=== PATIENT | male | born 1975 | race American Indian/Alaskan Native ===

== ENCOUNTER 2018-10-09 09:16 | Emergency (ER) | payer SELFPAY ==
[2018-10-09 10:02] LABS: Basophils # (Auto) 0.1 K/mm3 (0.0-0.1); Eosinophils # (Auto) 1.1 K/mm3 (0.0-0.4); Eosinophils % (Auto) 9.7 % (0.0-4.3); Hematocrit 35.7 % (35.5-45.6); Hemoglobin 12.1 gm/dl (11.8-15.2); Lymphocytes # (Auto) 1.4 K/mm3 (1.2-5.4); Lymphocytes % (Auto) 11.9 % (13.4-35.0); Mean Corpuscular HGB Conc 34 % (32-34); Mean Corpuscular Volume 92 fl (84-94); Monocytes # (Auto) 0.8 K/mm3 (0.0-0.8); Monocytes % (Auto) 7.1 % (0.0-7.3); Platelet Count 302 K/mm3 (140-440); Red Blood Count 3.88 M/mm3 (3.65-5.03); Red Cell Distribution Width 16.3 % (13.2-15.2)
[2018-10-09 10:18] LABS: Calcium 8.3 mg/dL (8.4-10.2)
--- NOTE | 2018-10-09 11:36 | Emergency Department Report ---
ED General Adult HPI - General Chief complaint: Abdominal Pain Stated complaint: SWOLLEN LEGS, FEET, STOMACH Time Seen by Provider: 10/09/18 11:10 Source: patient Mode of arrival: Ambulatory Limitations: No Limitations - History of Present Illness Initial comments: 43-year-old male with history of hypertension and asthma presents to ED with swelling to bilateral lower extremities 2 weeks. Patient says he was seen previously by his PCP for respiratory infection, states a chest x-ray was done and he was told he had a small amount of fluid on his lungs. Patient states he was prescribed a water pill and steroids. Denies abdominal pain or lower extr emity pain. -: week(s) (2) Location: abdomen, left, right, lower extremity Severity scale (0 -10): 0 Consistency: constant Improves with: none Worsens with: none Associated Symptoms: shortness of breath. denies: chest pain - Related Data Home Medications Medication Instructions Recorded Confirmed Last Taken Albuterol Sulfate [Albuterol 1 - 2 puff IH Q6H PRN 10/09/18 10/09/18 Unknown Sulfate Hfa] Furosemide [Lasix] 20 mg PO QDAY 10/09/18 10/09/18 Unknown Hydralazine HCl 50 mg PO Q12H 10/09/18 10/09/18 10/08/18 Isosorbide Dinitrate [Isordil 10 mg PO TID 10/09/18 10/09/18 Unknown Titradose] Previous Rx's Medication Instructions Recorded Last Taken Type Ciprofloxacin HCl [Ciprofloxacin 500 mg PO Q12HR #14 tab 10/09/18 Unknown Rx TAB] Furosemide [Lasix] 20 mg PO QDAY #30 tablet 10/09/18 Unknown Rx Metoprolol [Lopressor TAB] 25 mg PO BID #60 tablet 10/09/18 Unknown Rx Simvastatin 20 mg PO DAILY #30 tablet 10/09/18 Unknown Rx hydroCHLOROthiazide [Hctz] 12.5 mg PO QDAY #30 capsule 10/09/18 Unknown Rx Allergies Allergy/AdvReac Type Severity Reaction Status Date / Time lisinopril Allergy Hives Verified 10/09/18 09:19 ED Review of Systems ROS: Stated complaint: SWOLLEN LEGS, FEET, STOMACH Other details as noted in HPI Comment: All other systems reviewed and negative Constitutional: denies: chills, fever Respiratory: cough, shortness of breath Cardiovascular: denies: chest pain Gastrointestinal: denies: abdominal pain, nausea, vomiting Musculoskeletal: other (reports lower extremity swelling, denies pain) ED Past Medical Hx - Past Medical History Previous Medical History?: Yes Hx Hypertension: Yes Hx Asthma: Yes - Surgical History Past Surgical History?: Yes - Social History Smoking Status: Never Smoker Substance Use Type: None - Medications Home Medications: Home Medications Medication Instructions Recorded Confirmed Last Taken Type Albuterol Sulfate [Albuterol 1 - 2 puff IH Q6H PRN 10/09/18 10/09/18 Unknown History Sulfate Hfa] Ciprofloxacin HCl [Ciprofloxacin 500 mg PO Q12HR #14 tab 10/09/18 Unknown Rx TAB] Furosemide [Lasix] 20 mg PO QDAY 10/09/18 10/09/18 Unknown History Furosemide [Lasix] 20 mg PO QDAY #30 tablet 10/09/18 Unknown Rx Hydralazine HCl 50 mg PO Q12H 10/09/18 10/09/18 10/08/18 History Isosorbide Dinitrate [Isordil 10 mg PO TID 10/09/18 10/09/18 Unknown History Titradose] Metoprolol [Lopressor TAB] 25 mg PO BID #60 tablet 10/09/18 Unknown Rx Simvastatin 20 mg PO DAILY #30 tablet 10/09/18 Unknown Rx hydroCHLOROthiazide [Hctz] 12.5 mg PO QDAY #30 capsule 10/09/18 Unknown Rx ED Physical Exam - General Limitations: No Limitations General appearance: alert, in no apparent distress, obese - Head Head exam: Present: atraumatic, normocephalic - Eye Eye exam: Present: normal appearance - ENT ENT exam: Present: mucous membranes moist - Neck Neck exam: Present: normal inspection - Respiratory Respiratory exam: Present: normal lung sounds bilaterally. Absent: respiratory distress - Cardiovascular Cardiovascular Exam: Present: regular rate, normal rhythm - GI/Abdominal GI/Abdominal exam: Present: soft. Absent: distended, tenderness - Extremities Exam Extremities exam: Present: other (2+ pitting edema BLE) - Neurological Exam Neurological exam: Present: alert, oriented X3 - Psychiatric Psychiatric exam: Present: normal affect, normal mood - Skin Skin exam: Present: warm, dry, intact, normal color ED Course Vital Signs 10/09/18 10/09/18 10/09/18 09:37 10:43 12:10 Temperature 97.4 F L Pulse Rate 100 H 94 H 83 Respiratory 16 19 19 Rate Blood Pressure 171/117 Blood Pressure 178/122 163/100 [Left] O2 Sat by Pulse 100 100 99 Oximetry 10/09/18 10/09/18 10/09/18 13:37 14:06 16:34 Temperature Pulse Rate 74 70 85 Respiratory 19 17 19 Rate Blood Pressure Blood Pressure 172/100 163/112 152/100 [Left] O2 Sat by Pulse 100 99 100 Oximetry 10/09/18 10/09/18 17:58 18:12 Temperature Pulse Rate 71 74 Respiratory 18 17 Rate Blood Pressure Blood Pressure 174/100 155/100 [Left] O2 Sat by Pulse 99 99 Oximetry ED Medical Decision Making - Lab Data Result diagrams: 10/09/18 09:52 10/09/18 09:52 - Radiology Data Radiology results: report reviewed, image reviewed - Medical Decision Making 43-year-old male presents to ED with bilateral lower extremity swelling. Patient has possible history of CHF, as he reports that he had an echocardiogram done which showed that he was borderline CHF, but that he needed to "follow it." Patient states he has never been on Lasix up until one week ago and his PCP put him on a 1 week course of Lasix. CXR reported as right-sided infiltrate, but appears to be pulm edema, less likely PNA as WBCs normal, pt afebrile, also BNP elevated to 6000. Patient given IV Lasix, hydralazine here in ED. Will admit to hospitalist, Dr. aCo, for diuresis. - Differential Diagnosis CHF, hypertensive urgency, PNA Critical care attestation.: If time is entered above; I have spent that time in minutes in the direct care of this critically ill patient, excluding procedure time. ED Disposition Clinical Impression: Hypertensive urgency, CHF (congestive heart failure) Disposition: OP ADMIT IP TO THIS HOSP Is pt being admited?: Yes Condition: Stable Prescriptions: Ciprofloxacin HCl [Ciprofloxacin TAB] 500 mg PO Q12HR #14 tab hydroCHLOROthiazide [Hctz] 12.5 mg PO QDAY #30 capsule Furosemide [Lasix] 20 mg PO QDAY #30 tablet Metoprolol [Lopressor TAB] 25 mg PO BID #60 tablet Simvastatin 20 mg PO DAILY #30 tablet Referrals: KYE ONTIVEROS MD [Primary Care Provider] - 3-5 Days Time of Disposition: 13:12
--- NOTE | 2018-10-09 12:30 | XRay Report ---
AP CHEST: HISTORY: Cough No comparison. Patchy infiltrate is suspected throughout the right lung consistent with pneumonia. The left lung is clear. No pleural effusion or pneumothorax. Mild cardiomegaly. IMPRESSION: Mild cardiomegaly. Subtle infiltration in the right lung. Correlate for early pneumonia.
[2018-10-09] MEDS ORDERED: LASIX IV ONE (13:04)
[2018-10-09] MEDS ORDERED: APRESOLINE IV ONE (13:08)
[2018-10-09] MEDS ORDERED: ULTRAM PO ONE (13:25)
[2018-10-09] MEDS ORDERED: ZOFRAN ONE (13:57)
[2018-10-09] MEDS ORDERED: LOPRESSOR PO ONE (14:00)
[2018-10-09] MEDS ORDERED: LEVAQUIN 500MG/100ML 500 MG/100 ML BAG IV ONE (14:05)
[2018-10-09 14:09] LABS: Bacteria,Urine 1+ /HPF (Negative); Bilirubin,Urine NEG (Negative); Blood,Urine NEG (Negative); Color,Urine Yellow (Yellow); Hyaline Casts,Urine 1 /LPF; Urobilinogen,Urine < 2.0 mg/dL (<2.0)
[2018-10-09] MEDS ORDERED: LEVAQUIN PO ONE (14:18)
[2018-10-09] MEDS ORDERED: HCTZ PO ONE (18:00)
[2018-10-09] MEDS ORDERED: ZOFRAN IV ONE (18:34)
[2018-10-09 18:38] VITALS: BP 152/77
== END 2018-10-09 19:08 | disposition home or self-care (01) ==
LOC: ED 09:16
DX: I11.0 Hypertensive heart disease with heart failure (principal); I50.9 Heart failure, unspecified; J45.909 Unspecified asthma, uncomplicated
CPT/HCPCS: 36415; 71045; 80048; 81001; 83880; 85025; 96365; 96375; 99284; J0360; J1940; J1956; J2405

== ENCOUNTER 2018-10-26 17:35 | Inpatient (IN) | payer OTHER ==
[~2018-10-26 17:35] MED LIST: VERSED IV ONE; ZEMURON IV ONE
[2018-10-26 18:42] LABS: Hematocrit 35.7 % (35.5-45.6); Hemoglobin 11.7 gm/dl (11.8-15.2); Mean Corpuscular HGB Conc 33 % (32-34); Mean Corpuscular Volume 93 fl (84-94); Platelet Count 271 K/mm3 (140-440); Red Blood Count 3.83 M/mm3 (3.65-5.03)
--- NOTE | 2018-10-26 18:49 | XRay Report ---
PROCEDURE: XR CHEST ROUTINE 2V TECHNIQUE: 2 view chest HISTORY: severe sob COMPARISONS: Chest x-ray October 09, 2018 FINDINGS: . Mild cardiomegaly stable. No pneumothorax. No sizable effusion. Patchy right perihilar airspace disease somewhat improved toshia red to prior study. No acute bony abnormality IMPRESSION: Stable cardiomegaly Right perihilar airspace disease persists but is improved No new airspace disease. This document is electronically signed by Eusebio Vásquez MD., Oct 26 2018 06:47:09 PM ET
[2018-10-26 19:09] LABS: Albumin 2.9 g/dL (3.9-5); Calcium 8.4 mg/dL (8.4-10.2)
[2018-10-26] MEDS ORDERED: PROVENTIL IH ONE ×2 (20:44→20:49)
[2018-10-26] MEDS ORDERED: ATROVENT IH ONE ×3 (20:44→20:49)
[2018-10-26] MEDS ORDERED: LASIX IV ONE (22:22)
[2018-10-26] MEDS ORDERED: VIBRAMYCIN PO ONE (22:22)
[2018-10-26] MEDS ORDERED: BABY ASPIRIN PO ONE (22:22)
[2018-10-26] MEDS ORDERED: TYLENOL PO ONE (22:22)
--- NOTE | 2018-10-26 22:23 | Emergency Department Report ---
ED General Adult HPI - General Chief complaint: Dyspnea/Respdistress Stated complaint: SOB/LEG AND FEET PAIN Time Seen by Provider: 10/26/18 22:05 Source: patient, RN notes reviewed, old records reviewed Mode of arrival: Ambulatory Limitations: No Limitations, Physical Limitation - History of Present Illness Initial comments: This is a 43-year-old gentleman. Patient is not known to this provider previously. He appears to have a past history of renal insufficiency, uncertain acute or chronic, obesity, hypertension. Patient presents to the emergency room today with a complaint of bilateral lower extremity pain, swelling, cough, wheezing, shortness of breath, orthopnea, unintentional weight gain. The patient denies DVT, pulmonary embolus risk f actors. He makes no complaint of chest pain. He reports these symptoms feel similar to a prior episode of presumed congestive heart failure, he was evaluated in September of last month for similar symptoms, reports that his symptoms improved after taking the medication. He is also coughing. -: Gradual, days(s) Location: left, right, lower extremity Radiation: non-radiation Severity scale (0 -10): 9 Quality: aching Consistency: constant Improves with: rest Worsens with: movement - Related Data Home Medications Medication Instructions Recorded Confirmed Last Taken Albuterol Sulfate [Albuterol 1 - 2 puff IH Q6H PRN 10/09/18 10/09/18 Unknown Sulfate Hfa] Furosemide [Lasix] 20 mg PO QDAY 10/09/18 10/09/18 Unknown Hydralazine HCl 50 mg PO Q12H 10/09/18 10/09/18 10/08/18 Isosorbide Dinitrate [Isordil 10 mg PO TID 10/09/18 10/09/18 Unknown Titradose] Previous Rx's Medication Instructions Recorded Last Taken Type Ciprofloxacin HCl [Ciprofloxacin 500 mg PO Q12HR #14 tab 10/09/18 Unknown Rx TAB] Furosemide [Lasix] 20 mg PO QDAY #30 tablet 10/09/18 Unknown Rx Metoprolol [Lopressor TAB] 25 mg PO BID #60 tablet 10/09/18 Unknown Rx Simvastatin 20 mg PO DAILY #30 tablet 10/09/18 Unknown Rx hydroCHLOROthiazide [Hctz] 12.5 mg PO QDAY #30 capsule 10/09/18 Unknown Rx Allergies Allergy/AdvReac Type Severity Reaction Status Date / Time lisinopril Allergy Hives Verified 10/09/18 09:19 ED Review of Systems ROS: Stated complaint: SOB/LEG AND FEET PAIN Other details as noted in HPI Constitutional: malaise Eyes: denies: eye discharge ENT: congestion Respiratory: cough, shortness of breath, SOB with exertion, SOB at rest, wheezing Cardiovascular: dyspnea on exertion, orthopnea, edema. denies: chest pain Gastrointestinal: denies: vomiting Genitourinary: other (patient endorses decreased urinary frequency). denies: dysuria Musculoskeletal: arthralgia Neurological: weakness Psychiatric: anxiety ED Past Medical Hx - Past Medical History Previous Medical History?: Yes Hx Hypertension: Yes Hx Asthma: Yes - Surgical History Past Surgical History?: No - Social History Smoking Status: Never Smoker Substance Use Type: None - Medications Home Medications: Home Medications Medication Instructions Recorded Confirmed Last Taken Type Albuterol Sulfate [Albuterol 1 - 2 puff IH Q6H PRN 10/09/18 10/09/18 Unknown History Sulfate Hfa] Ciprofloxacin HCl [Ciprofloxacin 500 mg PO Q12HR #14 tab 10/09/18 Unknown Rx TAB] Furosemide [Lasix] 20 mg PO QDAY 10/09/18 10/09/18 Unknown History Furosemide [Lasix] 20 mg PO QDAY #30 tablet 10/09/18 Unknown Rx Hydralazine HCl 50 mg PO Q12H 10/09/18 10/09/18 10/08/18 History Isosorbide Dinitrate [Isordil 10 mg PO TID 10/09/18 10/09/18 Unknown History Titradose] Metoprolol [Lopressor TAB] 25 mg PO BID #60 tablet 10/09/18 Unknown Rx Simvastatin 20 mg PO DAILY #30 tablet 10/09/18 Unknown Rx hydroCHLOROthiazide [Hctz] 12.5 mg PO QDAY #30 capsule 10/09/18 Unknown Rx ED Physical Exam - General Limitations: Physical Limitation General appearance: alert, anxious, in distress - Head Head exam: Present: atraumatic, normocephalic - Eye Eye exam: Present: normal appearance, EOMI. Absent: nystagmus - ENT ENT exam: Present: normal exam, normal orophraynx, mucous membranes moist, normal external ear exam - Neck Neck exam: Present: normal inspection, full ROM, other (6 cm of jugular venous distention noted bilaterally). Absent: tenderness, meningismus - Respiratory Respiratory exam: Present: respiratory distress, rales - Cardiovascular Cardiovascular Exam: Present: normal rhythm, tachycardia, normal heart sounds. Absent: systolic murmur, diastolic murmur, rubs, gallop - GI/Abdominal GI/Abdominal exam: Present: soft. Absent: distended, tenderness, guarding, rebound, rigid, pulsatile mass - Rectal Rectal exam: Present: deferred - Extremities Exam Extremities exam: Present: normal inspection, full ROM, pedal edema (4+ pitting edema noted in the bilateral lower extremities), other (2+ pulses noted in the bilateral upper extremities.. Compartments soft. No long bony tenderness. The pelvis is stable.). Absent: calf tenderness - Back Exam Back exam: Present: normal inspection, full ROM. Absent: tenderness, CVA tenderness (R), CVA tenderness (L), paraspinal tenderness, vertebral tenderness - Neurological Exam Neurological exam: Present: alert, other (Extraocular movements intact. Tongue midline. No facial droop. Facial sensation intact to light touch in the V1, V2, V3 distribution bilaterally. 5 and 5 strength in 4 extremities.. Sensation is intact to light touch in 4 extremities.). Absent: motor sensory deficit - Psychiatric Psychiatric exam: Present: anxious - Skin Skin exam: Present: warm, dry, intact, normal color. Absent: rash ED Course Vital Signs 10/26/18 10/26/18 10/26/18 18:04 20:32 22:01 Temperature 98.2 F 98.8 F Pulse Rate 111 H 110 H Respiratory 22 24 Rate Blood Pressure 169/109 172/111 O2 Sat by Pulse 97 94 97 Oximetry 10/26/18 10/26/18 10/26/18 22:15 22:31 22:45 Temperature Pulse Rate 110 H 112 H 116 H Respiratory 32 H 34 H 19 Rate Blood Pressure 163/118 163/118 163/118 O2 Sat by Pulse 93 95 92 Oximetry 10/26/18 10/26/18 23:04 23:56 Temperature Pulse Rate Respiratory 26 H 20 Rate Blood Pressure O2 Sat by Pulse 95 Oximetry ED Medical Decision Making - Lab Data Result diagrams: 10/26/18 18:21 10/26/18 18:21 Vital Signs 10/26/18 10/26/18 10/26/18 18:04 20:32 22:01 Temperature 98.2 F 98.8 F Pulse Rate 111 H 110 H Respiratory 22 24 Rate Blood Pressure 169/109 172/111 O2 Sat by Pulse 97 94 97 Oximetry 10/26/18 10/26/18 10/26/18 22:15 22:31 22:45 Temperature Pulse Rate 110 H 112 H 116 H Respiratory 32 H 34 H 19 Rate Blood Pressure 163/118 163/118 163/118 O2 Sat by Pulse 93 95 92 Oximetry 10/26/18 23:04 Temperature Pulse Rate Respiratory 26 H Rate Blood Pressure O2 Sat by Pulse 95 Oximetry Lab Results 10/26/18 10/26/18 10/26/18 Range/Units 18:21 18:21 22:56 WBC 10.2 (4.5-11.0) K/mm3 RBC 3.83 (3.65-5.03) M/mm3 Hgb 11.7 L (11.8-15.2) gm/dl Hct 35.7 (35.5-45.6) % MCV 93 (84-94) fl MCH 30 (28-32) pg MCHC 33 (32-34) % RDW 17.0 H (13.2-15.2) % Plt Count 271 (140-440) K/mm3 Sodium 140 (137-145) mmol/L Potassium 4.3 (3.6-5.0) mmol/L Chloride 105.6 (98-107) mmol/L Carbon Dioxide 23 (22-30) mmol/L Anion Gap 16 mmol/L BUN 21 H (9-20) mg/dL Creatinine 2.4 H (0.8-1.5) mg/dL Estimated GFR 36 ml/min BUN/Creatinine Ratio 9 % Glucose 106 H (75-100) mg/dL Lactic Acid 0.80 (0.7-2.0) mmol/L Calcium 8.4 (8.4-10.2) mg/dL Magnesium (1.7-2.3) mg/dL Total Bilirubin 0.30 (0.1-1.2) mg/dL AST 28 (5-40) units/L ALT 29 (7-56) units/L Alkaline Phosphatase 45 (35-129) units/L Total Creatine Kinase (55-170) units/L NT-Pro-B Natriuret Pep 8302 H (0-450) pg/mL Total Protein 5.6 L (6.3-8.2) g/dL Albumin 2.9 L (3.9-5) g/dL Albumin/Globulin Ratio 1.1 % 10/26/18 Range/Units 22:56 WBC (4.5-11.0) K/mm3 RBC (3.65-5.03) M/mm3 Hgb (11.8-15.2) gm/dl Hct (35.5-45.6) % MCV (84-94) fl MCH (28-32) pg MCHC (32-34) % RDW (13.2-15.2) % Plt Count (140-440) K/mm3 Sodium (137-145) mmol/L Potassium (3.6-5.0) mmol/L Chloride (98-107) mmol/L Carbon Dioxide (22-30) mmol/L Anion Gap mmol/L BUN (9-20) mg/dL Creatinine (0.8-1.5) mg/dL Estimated GFR ml/min BUN/Creatinine Ratio % Glucose (75-100) mg/dL Lactic Acid (0.7-2.0) mmol/L Calcium (8.4-10.2) mg/dL Magnesium 1.90 (1.7-2.3) mg/dL Total Bilirubin (0.1-1.2) mg/dL AST (5-40) units/L ALT (7-56) units/L Alkaline Phosphatase (35-129) units/L Total Creatine Kinase 287 H (55-170) units/L NT-Pro-B Natriuret Pep (0-450) pg/mL Total Protein (6.3-8.2) g/dL Albumin (3.9-5) g/dL Albumin/Globulin Ratio % - EKG Data -: EKG Interpreted by Dc EKG shows normal: sinus rhythm Rate: tachycardia - EKG Data 10/27/18 00:05 sinus tachycardia, normal axis, not a stemi, qtc 453 ms, pr 161 ms , atrial enlargement - Radiology Data Radiology results: report reviewed, image reviewed X-ray of the chest shows right patchy airspace disease, enlarged cardiac silhouette, no pneumothorax - Medical Decision Making Differential diagnosis, including but not limited to: Pulmonary hypertension, right-sided heart failure, obstructive sleep apnea, cardiorenal syndrome, worsening renal insufficiency, fluid overload Assessment and plan: 43-year-old gentleman, reports no pulmonary embolus or DVT risk factors, low risk by well's criteria, perc negative, with jugular venous distention, hypoxia, lower extremity edema, rales, findings suspicious for rig ht-sided heart failure, secondary to morbid obesity, presumed undiagnosed obstructive sleep apnea, and probable pulmonary hypertension. May also be multifactorial. With worsening renal insufficiency and lower extremity edema, may have a component of cardiorenal syndrome. We will treat the patient empirically with doxycycline for questionable community-acquired pneumonia, we will dose with high-dose Lasix, and admitted to the medical service for medical optimization. Case is presented to the Hospital physician, Dr. Angel, who has accepted the patient to the medical service. Critical Care Time: Yes Critical care time in (mins) excluding proc time.: 45 Critical care attestation.: If time is entered above; I have spent that time in minutes in the direct care of this critically ill patient, excluding procedure time. ED Disposition Clinical Impression: Cardiorenal syndrome with renal failure CHF exacerbation Qualifiers: Heart failure type: unspecified Qualified Code(s): I50.9 - Heart failure, unspecified Disposition: DC-09 OP ADMIT IP TO THIS HOSP Is pt being admited?: Yes Condition: Fair
--- NOTE | 2018-10-26 23:45 | History and Physical Report ---
<BOBBY CASTRO - Last Filed: 10/27/18 01:12> History of Present Illness Date of examination: 10/27/18 Date of admission: 10/27/2018 Chief complaint: Shortness of breath started today, cough for 2 months History of present illness: Patient is a 43-year-old male with PMHx of CHF, hypertension, asthma, obesity who presents to the ER with complaints of shortness of breath, cough for 2 months. Patient states that he started coughing 2 months ago, he was using his nebulizer at home for his asthma symptoms but today the treatment was not working, the shortness of breath got worse, he noticed swelling on both legs for some times now, he reports a total weight gain of 30 pounds for the past 2 months. Patient also reports bilateral lower extremity pain, swelling, cough, wheezing, shortness of breath, he denied history of DVT. 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 Patient reports prior episodes of CHF, he states that he has been taking his medication daily including Lasix but it wasn't working, he was evaluated in September of last month for similar symptoms. In the ER his BNP was 8302, BUN/Creat was 21/2.4, a chest x-ray showed stable cardiomegaly, right perihilar air space disease, cardiology was consulted and patient was admitted for further evaluation and treatment. Past History Past Medical History: heart failure, hypertension, renal failure Past Surgical History: Other (knee surgery as his child) Social history: no significant social history Family history: hypertension Medications and Allergies Allergies Allergy/AdvReac Type Severity Reaction Status Date / Time lisinopril Allergy Hives Verified 10/09/18 09:19 Home Medications Medication Instructions Recorded Confirmed Last Taken Type Albuterol Sulfate [Albuterol 1 - 2 puff IH Q6H PRN 10/09/18 10/27/18 Unknown History Sulfate Hfa] Aspirin [Aspirin TAB] 325 mg PO QDAY #30 tablet 11/03/18 Unknown Rx Carvedilol [Coreg] 25 mg PO Q12HR #60 tablet 11/03/18 Unknown Rx Furosemide [Lasix TAB] 40 mg PO Q8H #90 tablet 11/03/18 Unknown Rx Furosemide [Lasix TAB] 40 mg PO QDAY #30 tablet 11/03/18 Unknown Rx Isosorbide Dinitrate [Isordil 10 mg PO TID #90 tablet 11/03/18 Unknown Rx Titradose] Potassium Chloride [K-Dur] 20 meq PO BID #60 tab 11/03/18 Unknown Rx Pravastatin [Pravachol] 40 mg PO QHS #30 tablet 11/03/18 Unknown Rx hydrALAZINE [Apresoline TAB] 100 mg PO TID #30 tablet 11/03/18 Unknown Rx Active Meds: Active Medications Enoxaparin Sodium (Lovenox) 30 mg SUB-Q QDAY [facility] Review of Systems Cardiovascular: orthopnea, shortness of breath Respiratory: cough, shortness of breath, dyspnea on exertion, wheezing Exam - Physical Exam Narrative exam: Patient is a 43-year-old male with history of CHF and asthma who presents with CHF and asthma exacerbation - Constitutional Vitals: Temp Pulse Resp BP Pulse Ox 98.8 F 116 H 26 H 163/118 95 10/26/18 20:32 10/26/18 22:45 10/26/18 23:04 10/26/18 22:45 10/26/18 23:04 General appearance: Present: mild distress - EENT Eyes: Present: PERRL, EOM intact ENT: hearing intact - Neck Neck: Present: supple, normal ROM - Respiratory Respiratory effort: normal Respiratory: bilateral: CTA - Cardiovascular Rhythm: regular - Extremities Extremity abnormal: edema Peripheral Pulses: within normal limits - Abdominal General gastrointestinal: Present: non-tender Male genitourinary: Present: deferred - Rectal Rectal Exam: deferred - Integumentary Integumentary: Present: clear, warm - Psychiatric Psychiatric: cooperative - Neurologic Neurologic: moves all extremities Results - Labs CBC & Chem 7: 10/26/18 18:21 10/26/18 18:21 Labs: Laboratory Last Values WBC 10.2 K/mm3 (4.5-11.0) 10/26/18 18:21 RBC 3.83 M/mm3 (3.65-5.03) 10/26/18 18:21 Hgb 11.7 gm/dl (11.8-15.2) L 10/26/18 18:21 Hct 35.7 % (35.5-45.6) 10/26/18 18:21 MCV 93 fl (84-94) 10/26/18 18:21 MCH 30 pg (28-32) 10/26/18 18:21 MCHC 33 % (32-34) 10/26/18 18:21 RDW 17.0 % (13.2-15.2) H 10/26/18 18:21 Plt Count 271 K/mm3 (140-440) 10/26/18 18:21 Sodium 140 mmol/L (137-145) 10/26/18 18:21 Potassium 4.3 mmol/L (3.6-5.0) 10/26/18 18:21 Chloride 105.6 mmol/L (98-107) 10/26/18 18:21 Carbon Dioxide 23 mmol/L (22-30) 10/26/18 18:21 Anion Gap 16 mmol/L 10/26/18 18:21 BUN 21 mg/dL (9-20) H 10/26/18 18:21 Creatinine 2.4 mg/dL (0.8-1.5) H 10/26/18 18:21 Estimated GFR 36 ml/min 10/26/18 18:21 BUN/Creatinine Ratio 9 % 10/26/18 18:21 Glucose 106 mg/dL (75-100) H 10/26/18 18:21 Lactic Acid 0.80 mmol/L (0.7-2.0) 10/26/18 22:56 Calcium 8.4 mg/dL (8.4-10.2) 10/26/18 18:21 Magnesium 1.90 mg/dL (1.7-2.3) 10/26/18 22:56 Total Bilirubin 0.30 mg/dL (0.1-1.2) 10/26/18 18:21 AST 28 units/L (5-40) 10/26/18 18:21 ALT 29 units/L (7-56) 10/26/18 18:21 Alkaline Phosphatase 45 units/L (35-129) 10/26/18 18:21 Total Creatine Kinase 287 units/L (55-170) H 10/26/18 22:56 NT-Pro-B Natriuret Pep 8302 pg/mL (0-450) H 10/26/18 18:21 Total Protein 5.6 g/dL (6.3-8.2) L 10/26/18 18:21 Albumin 2.9 g/dL (3.9-5) L 10/26/18 18:21 Albumin/Globulin Ratio 1.1 % 10/26/18 18:21 Assessment and Plan Assessment and plan: 1. CHF with acute exacerbation 2. Asthma with acute exacerbation 3. Acute dyspnea 4. HTN (BP stable) 5. Obesity Plan: Pt is admitted to [facility] for CHF/asthma exacerbation Consult cardiology for management Lasix 40 twice a day for CHF Daily weight Continue nebulizer treatmemt PRN for SOB Pulmocort daily O2 to keep sat > 92% Cough supressent with tessalon perle CHF core measures with ASP, Beta yolis, Lasix, statin Resume home meds Plan of care was d/w pt, voiced understanding Pt's condition and plan of care of care discussed with the attending - Advance Directives: Yes VTE prophylaxis?: Chemical Plan of care discussed with patient/family: Yes <JOSH JENKINS - Last Filed: 11/05/18 00:40> History of Present Illness Date of admission: 10/26/18 23:26 Medications and Allergies Active Meds: Active Medications Albuterol/Ipratropium (Duoneb *Not For Prn Use*) 1 ampul IH Q6HRT [facility] Last Admin: 10/27/18 01:49 Dose: 1 ampul Documented by: Aspirin (Aspirin) 325 mg PO QDAY [facility] Budesonide (Pulmicort) 0.5 mg IH Q12HRT [facility] Enoxaparin Sodium (Lovenox) 30 mg SUB-Q QDAY [facility] Furosemide (Lasix) 40 mg IV BID@0600,1800 [facility] Hydralazine HCl (Apresoline) 10 mg IV Q4HR [facility] Levofloxacin/Dextrose (Levaquin 750mg/150ml) 750 mg in 150 mls @ 100 mls/hr IV Q24HR [facility]; Protocol Methylprednisolone Sodium Succinate (Solu-Medrol) 125 mg IV Q6H [facility] Metoprolol Tartrate (Lopressor) 50 mg PO BID [facility] Exam - Constitutional Vitals: Temp Pulse Resp BP Pulse Ox 97.4 F L 117 H 20 169/120 92 10/27/18 01:28 10/27/18 01:43 10/27/18 01:43 10/27/18 01:28 10/27/18 01:28 Results - Labs CBC & Chem 7: 11/01/18 04:41 11/03/18 11:53 Labs: Laboratory Last Values WBC 10.2 K/mm3 (4.5-11.0) 10/26/18 18:21 RBC 3.83 M/mm3 (3.65-5.03) 10/26/18 18:21 Hgb 11.7 gm/dl (11.8-15.2) L 10/26/18 18:21 Hct 35.7 % (35.5-45.6) 10/26/18 18:21 MCV 93 fl (84-94) 10/26/18 18:21 MCH 30 pg (28-32) 10/26/18 18:21 MCHC 33 % (32-34) 10/26/18 18:21 RDW 17.0 % (13.2-15.2) H 10/26/18 18:21 Plt Count 271 K/mm3 (140-440) 10/26/18 18:21 Sodium 140 mmol/L (137-145) 10/26/18 18:21 Potassium 4.3 mmol/L (3.6-5.0) 10/26/18 18:21 Chloride 105.6 mmol/L (98-107) 10/26/18 18:21 Carbon Dioxide 23 mmol/L (22-30) 10/26/18 18:21 Anion Gap 16 mmol/L 10/26/18 18:21 BUN 21 mg/dL (9-20) H 10/26/18 18:21 Creatinine 2.4 mg/dL (0.8-1.5) H 10/26/18 18:21 Estimated GFR 36 ml/min 10/26/18 18:21 BUN/Creatinine Ratio 9 % 10/26/18 18:21 Glucose 106 mg/dL (75-100) H 10/26/18 18:21 Lactic Acid 0.80 mmol/L (0.7-2.0) 10/26/18 22:56 Calcium 8.4 mg/dL (8.4-10.2) 10/26/18 18:21 Magnesium 1.90 mg/dL (1.7-2.3) 10/26/18 22:56 Total Bilirubin 0.30 mg/dL (0.1-1.2) 10/26/18 18:21 AST 28 units/L (5-40) 10/26/18 18:21 ALT 29 units/L (7-56) 10/26/18 18:21 Alkaline Phosphatase 45 units/L (35-129) 10/26/18 18:21 Total Creatine Kinase 287 units/L (55-170) H 10/26/18 22:56 NT-Pro-B Natriuret Pep 8302 pg/mL (0-450) H 10/26/18 18:21 Total Protein 5.6 g/dL (6.3-8.2) L 10/26/18 18:21 Albumin 2.9 g/dL (3.9-5) L 10/26/18 18:21 Albumin/Globulin Ratio 1.1 % 10/26/18 18:21 Assessment and Plan Assessment and plan: 43-year-old with a history of asthma, hypertension, chronic kidney disease comes to the emergency room with complaints of shortness of breath times one and half weeks, PND, orthopnea, lower extremity edema. He was seen here last month for similar symptoms and was discharged from the emergency room, started on Lasix. Admits to weight gain. I agree with plan as stated above, in addition patient will not be started on ABDIAZIZ inhibitor secondary to kidney problems. Check cardiac enzymes, echo. Increase steroids to 125, start IV antibiotic, chest x- ray suggestive of pneumonia Addendum Patient in respiratory distress, very diaphoretic, hypertensive Given additional IV Lasix, Solu-Medrol, nebulizer treatment placed on BiPAP, ABG results reviewed start nitroglycerin drip, transferred to ICU The high probability of a clinically significant, sudden or life threatening deterioration of the [CV, GI, respiratory] system(s) required my full and direct attention, intervention and personal management. The aggregate critical care time was [ 35] minutes. This time is in addition to time spent performing report ed procedures but includes the following: x] Data Review and interpretation [x] Patient assessment and monitoring of vital signs [x] Documentation [x] Medication orders and management
[2018-10-26] MEDS ORDERED: TYLENOL ONE (23:57)
[2018-10-27] MEDS: DUONEB *Not for PRN Use IH SCH ×4 (01:49→19:49)
[2018-10-27] MEDS ORDERED: SOLU-Medrol IV SCH ×4 (02:00→22:00)
[2018-10-27] MEDS ORDERED: APRESOLINE IV SCH (02:00)
[2018-10-27] MEDS ORDERED: ATROVENT IH ONE ×2 (02:12→03:30)
[2018-10-27] MEDS ORDERED: PROAIR IH PRN (02:26)
[2018-10-27] MEDS: APRESOLINE PO SCH ×2 (02:30→22:22)
[2018-10-27] MEDS ORDERED: APRESOLINE IV PRN (02:33)
[2018-10-27] MEDS ORDERED: LASIX ONE (02:49)
[2018-10-27] MEDS ORDERED: TRIDIL DRIP 50MG/250ML 50 MG/250 ML BOTTLE IV ONE ×2 (03:00→04:00)
[2018-10-27] MEDS ORDERED: LEVAQUIN 750MG/150ML 750 MG/150 ML BAG IV ONE (03:00)
[2018-10-27 03:12] LABS: Hematocrit 37.3 % (35.5-45.6); Hemoglobin 12.4 gm/dl (11.8-15.2); Mean Corpuscular HGB Conc 33 % (32-34); Mean Corpuscular Volume 93 fl (84-94); Platelet Count 315 K/mm3 (140-440); Red Cell Distribution Width 16.5 % (13.2-15.2)
[2018-10-27 03:34] LABS: Calcium 8.7 mg/dL (8.4-10.2)
[2018-10-27] MEDS ORDERED: LASIX IV SCH (06:00)
[2018-10-27] MEDS: PULMICORT IH SCH ×2 (07:43→19:48)
[2018-10-27] MEDS ORDERED: LOVENOX SUB-Q SCH (10:00)
[2018-10-27] MEDS ORDERED: NON-FORMULARY (Ciprofloxacin Hcl [Ciprofloxacin Tab] 500 MG) PO SCH (10:00)
[2018-10-27] MEDS ORDERED: ALDACTONE PO SCH (10:00)
--- NOTE | 2018-10-27 10:36 | Progress Note ---
Assessment and Plan Assessment and plan: Patient is a 43-year-old male with a history of asthma, hypertension, chronic kidney disease comes to the emergency room with complaints of shortness of breath times one and half weeks, PND, orthopnea, lower extremity edema. He was seen here last month for similar symptoms and was discharged from the emergency room, started on Lasix. Admits to weight gain. In the ER his BNP was 8302, BUN/Creat was 21/2.4, a chest x-ray showed stable cardiomegaly, right perihilar air space disease, cardiology was consulted and patient was admitted for further evaluation and treatment. Echocardiogram done this morning shows a dilated four-chamber cardiomyopathy, systolic left ventricular dysfunction with ejection fraction 20-25%. Acute Systolic CHF with acute exacerbation Acute Hypoxic Respiratory failure now on mechanical ventilation Presumed Pneumonia CXR concerning for perihilar infiltrate Pulmonary Edema Asthma with acute exacerbation Acute on chronic Kidney Injury Acute dyspnea HTN (BP stable) Obesity Plan: Continue current medical treatment CHF protocol, Cardiology input noted. Lasix 40 twice a day for CHF Check cardiac enzymes Obtain Nephrology consult Pulmonary input noted Daily weight Continue nebulizer treatment PRN for SOB Pulmocort daily O2 to keep sat > 92% CHF core measures with ASP, Beta yolis, Lasix, statin Resume home meds The high probability of a clinically significant, sudden or life threatening deterioration of the [CV, GI, respiratory] system(s) required my full and direct attention, intervention and personal management. The aggregate critical care time was [ 35] minutes. This time is in addition to time spent performing reported procedures but includes the following: (x] Data Review and interpretation [x] Patient assessment and monitoring of vital signs [x] Documentation [x] Medication orders and management History Interval history: Patient seen and examined today, intermittent shortness of breath, but later decompensated requiring intubation and mechanical ventilation. Hospitalist Physical - Constitutional Vitals: Temp Pulse Resp BP Pulse Ox 97.3 F L 104 H 22 158/99 95 10/27/18 08:00 10/27/18 08:05 10/27/18 08:05 10/27/18 07:30 10/27/18 07:42 General appearance: Present: mild distress - EENT Eyes: Present: PERRL, EOM intact - Neck Neck: Present: supple, normal ROM - Respiratory Respiratory: bilateral: rhonchi - Cardiovascular Rhythm: regular Heart Sounds: Present: S1 & S2. Absent: systolic murmur, diastolic murmur - Extremities Extremities: no ischemia, pulses intact, pulses symmetrical, normal temperature, normal color, Full ROM Extremity abnormal: edema Peripheral Pulses: within normal limits - Abdominal General gastrointestinal: soft, distended, normal bowel sounds - Integumentary Integumentary: Present: clear, warm, dry - Psychiatric Psychiatric: appropriate mood/affect, intact judgment & insight, cooperative - Neurologic Neurologic: CNII-XII intact, moves all extremities - Allied Health Allied health notes reviewed: nursing Results - Labs CBC & Chem 7: 10/27/18 03:00 10/27/18 03:00 Labs: Laboratory Last Values WBC 12.6 K/mm3 (4.5-11.0) H 10/27/18 03:00 RBC 4.00 M/mm3 (3.65-5.03) 10/27/18 03:00 Hgb 12.4 gm/dl (11.8-15.2) 10/27/18 03:00 Hct 37.3 % (35.5-45.6) 10/27/18 03:00 MCV 93 fl (84-94) 10/27/18 03:00 MCH 31 pg (28-32) 10/27/18 03:00 MCHC 33 % (32-34) 10/27/18 03:00 RDW 16.5 % (13.2-15.2) H 10/27/18 03:00 Plt Count 315 K/mm3 (140-440) 10/27/18 03:00 POC ABG pH 7.301 (7.35-7.45) L 10/27/18 02:58 POC ABG pCO2 45.9 (35-45) H 10/27/18 02:58 POC ABG pO2 94 (80-105) 10/27/18 02:58 POC ABG HCO3 22.6 (22-26 mml/L) 10/27/18 02:58 POC ABG Total CO2 24 (23-27mmol/L) 10/27/18 02:58 POC ABG O2 Sat 96 10/27/18 02:58 POC ABG Base Excess -4 ((-2) - (+3)mmol/L) 10/27/18 02:58 FiO2 70 % 10/27/18 02:58 Sodium 141 mmol/L (137-145) 10/27/18 03:00 Potassium 4.4 mmol/L (3.6-5.0) 10/27/18 03:00 Chloride 105.1 mmol/L (98-107) 10/27/18 03:00 Carbon Dioxide 20 mmol/L (22-30) L 10/27/18 03:00 Anion Gap 20 mmol/L 10/27/18 03:00 BUN 21 mg/dL (9-20) H 10/27/18 03:00 Creatinine 2.6 mg/dL (0.8-1.5) H 10/27/18 03:00 Estimated GFR 33 ml/min 10/27/18 03:00 BUN/Creatinine Ratio 8 % 10/27/18 03:00 Glucose 215 mg/dL (75-100) H 10/27/18 03:00 Lactic Acid 0.80 mmol/L (0.7-2.0) 10/26/18 22:56 Calcium 8.7 mg/dL (8.4-10.2) 10/27/18 03:00 Magnesium 1.90 mg/dL (1.7-2.3) 10/26/18 22:56 Total Bilirubin 0.30 mg/dL (0.1-1.2) 10/26/18 18:21 AST 28 units/L (5-40) 10/26/18 18:21 ALT 29 units/L (7-56) 10/26/18 18:21 Alkaline Phosphatase 45 units/L (35-129) 10/26/18 18:21 Total Creatine Kinase 287 units/L (55-170) H 10/26/18 22:56 NT-Pro-B Natriuret Pep 8302 pg/mL (0-450) H 10/26/18 18:21 Total Protein 5.6 g/dL (6.3-8.2) L 10/26/18 18:21 Albumin 2.9 g/dL (3.9-5) L 10/26/18 18:21 Albumin/Globulin Ratio 1.1 % 10/26/18 18:21 Active Medications - Current Medications Current Medications: Generic Name Dose Route Start Last Admin Trade Name Freq PRN Reason Stop Dose Admin Albuterol 2.5 mg 10/27/18 08:00 Proventil IH Q6HRT PRN Shortness Of Breath Albuterol/Ipratropium 1 ampul 10/27/18 02:00 10/27/18 07:43 Duoneb *Not For Prn Use* IH 1 ampul Q6HRT [facility] Administration Aspirin 325 mg 10/27/18 10:00 Aspirin PO QDAY [facility] Budesonide 0.5 mg 10/27/18 08:00 10/27/18 07:43 Pulmicort IH 0.5 mg Q12HRT [facility] Administration Enoxaparin Sodium 30 mg 10/27/18 10:00 Lovenox SUB-Q QDAY [facility] Furosemide 40 mg 10/27/18 06:00 10/27/18 06:41 Lasix IV 40 mg BID@0600,1800 [facility] Administration Hydralazine HCl 50 mg 10/27/18 02:30 10/27/18 02:30 Apresoline PO Not Given Q12HR [facility] Hydralazine HCl 10 mg 10/27/18 02:33 Apresoline IV Q4H PRN sb/p >150 Levofloxacin/Dextrose 750 mg in 150 mls @ 100 mls/hr 10/29/18 10:00 Levaquin 750mg/150ml IV Q48HR [facility] Protocol Isosorbide Dinitrate 10 mg 10/27/18 08:00 Isordil Titradose PO TID [facility] Methylprednisolone Sodium Succinate 125 mg 10/27/18 03:00 10/27/18 03:02 Solu-Medrol IV 80 mg Q6H [facility] Administration Metoprolol Tartrate 50 mg 10/27/18 10:00 Lopressor PO BID [facility] Pravastatin Sodium 40 mg 10/27/18 22:00 Pravachol PO QHS [facility]
[2018-10-27] MEDS: LOPRESSOR PO SCH ×2 (10:56→22:22)
[2018-10-27] MEDS: ASPIRIN PO SCH (10:56)
--- NOTE | 2018-10-27 11:39 | Consultation ---
History of Present Illness Consult date: 10/27/18 Requesting physician: VANESSA MURCIA Reason for consult: other (Acute Hypoxemic Respiratory Failure) History of present illness: PULMONARY/CCM CONSULT NOTE (full dictation # [id number]) Please see dictated notes for full details Past History Past Medical History: heart failure, hypertension, renal failure Past Surgical History: Other (knee surgery as his child) Social history: no significant social history Family history: hypertension Medications and Allergies Allergies Allergy/AdvReac Type Severity Reaction Status Date / Time lisinopril Allergy Hives Verified 10/09/18 09:19 Home Medications Medication Instructions Recorded Confirmed Last Taken Type Albuterol Sulfate [Albuterol 1 - 2 puff IH Q6H PRN 10/09/18 10/27/18 Unknown History Sulfate Hfa] Ciprofloxacin HCl [Ciprofloxacin 500 mg PO Q12HR #14 tab 10/09/18 10/27/18 Unknown Rx TAB] Furosemide [Lasix] 20 mg PO QDAY 10/09/18 10/27/18 Unknown History Furosemide [Lasix] 20 mg PO QDAY #30 tablet 10/09/18 10/27/18 10/26/18 Rx Hydralazine HCl 50 mg PO Q12H 10/09/18 10/27/18 10/26/18 History Isosorbide Dinitrate [Isordil 10 mg PO TID 10/09/18 10/27/18 Unknown History Titradose] Metoprolol [Lopressor TAB] 25 mg PO BID #60 tablet 10/09/18 10/27/18 10/26/18 Rx Simvastatin 20 mg PO DAILY #30 tablet 10/09/18 10/27/18 10/26/18 Rx hydroCHLOROthiazide [Hctz] 12.5 mg PO QDAY #30 capsule 10/09/18 10/27/18 10/26/18 Rx Active Meds: Active Medications Albuterol (Proventil) 2.5 mg IH Q6HRT PRN PRN Reason: Shortness Of Breath Albuterol/Ipratropium (Duoneb *Not For Prn Use*) 1 ampul IH Q6HRT [facility] Last Admin: 10/27/18 07:43 Dose: 1 ampul Documented by: Aspirin (Aspirin) 325 mg PO QDAY [facility] Last Admin: 10/27/18 10:56 Dose: 325 mg Documented by: Budesonide (Pulmicort) 0.5 mg IH Q12HRT [facility] Last Admin: 10/27/18 07:43 Dose: 0.5 mg Documented by: Enoxaparin Sodium (Lovenox) 30 mg SUB-Q QDAY [facility] Last Admin: 10/27/18 10:58 Dose: 30 mg Documented by: Furosemide (Lasix) 40 mg IV BID@0600,1800 [facility] Last Admin: 10/27/18 06:41 Dose: 40 mg Documented by: Hydralazine HCl (Apresoline) 50 mg PO Q12HR [facility] Last Admin: 10/27/18 02:30 Dose: Not Given Documented by: Hydralazine HCl (Apresoline) 10 mg IV Q4H PRN PRN Reason: sb/p >150 Levofloxacin/Dextrose (Levaquin 750mg/150ml) 750 mg in 150 mls @ 100 mls/hr IV Q48HR [facility]; Protocol Isosorbide Dinitrate (Isordil Titradose) 10 mg PO TID [facility] Methylprednisolone Sodium Succinate (Solu-Medrol) 125 mg IV Q6H [facility] Last Admin: 10/27/18 03:02 Dose: 80 mg Documented by: Metoprolol Tartrate (Lopressor) 50 mg PO BID [facility] Last Admin: 10/27/18 10:56 Dose: 50 mg Documented by: Pravastatin Sodium (Pravachol) 40 mg PO QHS [facility] Physical Examination Vital signs: Vital Signs Temp Pulse Resp BP Pulse Ox 98.2 F 111 H 22 169/109 97 10/26/18 18:04 10/26/18 18:04 10/26/18 18:04 10/26/18 18:04 10/26/18 18:04 Results - Laboratory Findings CBC and BMP: 10/27/18 03:00 10/27/18 03:00 ABG POC ABG pH 7.301 (7.35-7.45) L 10/27/18 02:58 POC ABG pCO2 45.9 (35-45) H 10/27/18 02:58 POC ABG pO2 94 (80-105) 10/27/18 02:58 POC ABG HCO3 22.6 (22-26 mml/L) 10/27/18 02:58 POC ABG Total CO2 24 (23-27mmol/L) 10/27/18 02:58 POC ABG O2 Sat 96 10/27/18 02:58 Abnormal lab findings: Abnormal Labs 10/26/18 10/26/18 10/26/18 18:21 18:21 22:56 WBC Hgb 11.7 L RDW 17.0 H POC ABG pH POC ABG pCO2 Carbon Dioxide BUN 21 H Creatinine 2.4 H Glucose 106 H Total Creatine Kinase 287 H NT-Pro-B Natriuret Pep 8302 H Total Protein 5.6 L Albumin 2.9 L 10/27/18 10/27/18 10/27/18 02:58 03:00 03:00 WBC 12.6 H Hgb RDW 16.5 H POC ABG pH 7.301 L POC ABG pCO2 45.9 H Carbon Dioxide 20 L BUN 21 H Creatinine 2.6 H Glucose 215 H Total Creatine Kinase NT-Pro-B Natriuret Pep Total Protein Albumin
[2018-10-27] MEDS: PROVENTIL IH PRN (11:47)
[2018-10-27] MEDS ORDERED: ATIVAN IV STA (13:04)
[2018-10-27] MEDS ORDERED: VASELINE LIP THERAPY TP PRN (13:07)
[2018-10-27] MEDS ORDERED: SUBLIMAZE IV PRN (13:07)
[2018-10-27] MEDS ORDERED: ARTIFICIAL TEARS OPHTH OINT OU PRN (13:07)
--- NOTE | 2018-10-27 13:24 | Consultation ---
History of Present Illness Consult date: 10/27/18 Consult reason: congestive heart failure, shortness of breath History of present illness: Patient is a 43-year-old man who is a very poor historian, presents to the hospital with shortness of breath, and was admitted to the CCU. His medications on presentation include isosorbide dinitrate, hydralazine, suggesting a diagnosis of systolic heart failure. However patient is unable to articulate any details of prior cardiac workup, and cannot remember who his outpatient doctor is located and we will prescribes his medications. He is currently in the CCU, appears very short of breath on bedrest. EKG is a mild sinus tachycardia, but no ST or T-wave abnormalities of ischemia. His chest x-ray is unavailable for review, but the report by the radiologist of the right perihilar infiltrate. There is no report of interstitial edema or heart failure exacerbation. Laboratory exam shows an elevated creatinine of 2.6, consistent with chronic kidney disease. For unclear reasons, the patient has not had cardiac enzymes measured during his transition from the emergency room to the CCU. Echocardiogram done this morning shows a dilated four-chamber cardiomyopathy, systolic left ventricular dysfunction with ejection fraction 20-25%. Past History Past Medical History: heart failure, hypertension, renal failure Past Surgical History: Other (knee surgery as his child) Social history: no significant social history Family history: hypertension Medications and Allergies Allergies Allergy/AdvReac Type Severity Reaction Status Date / Time lisinopril Allergy Hives Verified 10/09/18 09:19 Home Medications Medication Instructions Recorded Confirmed Last Taken Type Albuterol Sulfate [Albuterol 1 - 2 puff IH Q6H PRN 10/09/18 10/27/18 Unknown History Sulfate Hfa] Ciprofloxacin HCl [Ciprofloxacin 500 mg PO Q12HR #14 tab 10/09/18 10/27/18 Unknown Rx TAB] Furosemide [Lasix] 20 mg PO QDAY 10/09/18 10/27/18 Unknown History Furosemide [Lasix] 20 mg PO QDAY #30 tablet 10/09/18 10/27/18 10/26/18 Rx Hydralazine HCl 50 mg PO Q12H 10/09/18 10/27/18 10/26/18 History Isosorbide Dinitrate [Isordil 10 mg PO TID 10/09/18 10/27/18 Unknown History Titradose] Metoprolol [Lopressor TAB] 25 mg PO BID #60 tablet 10/09/18 10/27/18 10/26/18 Rx Simvastatin 20 mg PO DAILY #30 tablet 10/09/18 10/27/18 10/26/18 Rx hydroCHLOROthiazide [Hctz] 12.5 mg PO QDAY #30 capsule 10/09/18 10/27/18 10/26/18 Rx Active Meds: Active Medications Albuterol (Proventil) 2.5 mg IH Q6HRT PRN PRN Reason: Shortness Of Breath Last Admin: 10/27/18 11:47 Dose: 2.5 mg Documented by: Albuterol/Ipratropium (Duoneb *Not For Prn Use*) 1 ampul IH Q6HRT [facility] Last Admin: 10/27/18 07:43 Dose: 1 ampul Documented by: Aspirin (Aspirin) 325 mg PO QDAY [facility] Last Admin: 10/27/18 10:56 Dose: 325 mg Documented by: Budesonide (Pulmicort) 0.5 mg IH Q12HRT [facility] Last Admin: 10/27/18 07:43 Dose: 0.5 mg Documented by: Fentanyl (Sublimaze) 50 mcg IV Q10MIN PRN PRN Reason: ANALGESIA Furosemide (Lasix) 40 mg IV Q8H [facility] Heparin Sodium (Porcine) (Heparin) 5,000 unit SUB-Q BID [facility]E Hydralazine HCl (Apresoline) 50 mg PO Q12HR [facility] Last Admin: 10/27/18 02:30 Dose: Not Given Documented by: Hydralazine HCl (Apresoline) 10 mg IV Q4H PRN PRN Reason: sb/p >150 Hydrophilic Ointment (Vaseline Lip Therapy) 1 applic TP Q2HR PRN PRN Reason: Dry Lips Levofloxacin/Dextrose (Levaquin 750mg/150ml) 750 mg in 150 mls @ 100 mls/hr IV Q48HR [facility]E; Protocol Fentanyl Citrate (Fentanyl Drip Premix) 2,000 mcg in 100 mls @ 7.485 mls/hr IV TITR [facility]AYE; Protocol Propofol (Diprivan 10 Mg/Ml) 1,000 mg in 100 mls @ 4.491 mls/hr IV TITR FAYE; Protocol Insulin Human Lispro (Humalog) 0 unit SUB-Q Q6HR [facility]; Protocol Isosorbide Dinitrate (Isordil Titradose) 10 mg PO TID [facility] Methylprednisolone Sodium Succinate (Solu-Medrol) 40 mg IV Q12HR [facility] Metoprolol Tartrate (Lopressor) 50 mg PO BID [facility] Last Admin: 10/27/18 10:56 Dose: 50 mg Documented by: Multi-Ingred Cream/Lotion/Oil/Oint (Artificial Tears Ophth Oint) 1 applic OU Q4HR PRN PRN Reason: Dry Eye(s) Pravastatin Sodium (Pravachol) 40 mg PO QHS [facility] Propofol (Diprivan 10 Mg/Ml) 20 mg IV ONCE ONE Stop: 10/27/18 14:01 Review of Systems Cardiovascular: chest pain, orthopnea, edema, shortness of breath, no palpitations, no rapid/irregular heart beat, no syncope, no lightheadedness Physical Examination Vital Signs Temp Pulse Resp BP Pulse Ox 98.2 F 111 H 22 169/109 97 10/26/18 18:04 10/26/18 18:04 10/26/18 18:04 10/26/18 18:04 10/26/18 18:04 General appearance: mild distress HEENT: Positive: PERRL Neck: Positive: neck supple Cardiac: Positive: Reg Rate and Rhythm Lungs: Positive: Decreased Breath Sounds, Rhonchi Neuro: Positive: Grossly Intact Abdomen: Positive: Soft Male genitourinary: Positive: normal Skin: Positive: Clear Extremities: Present: +1 Edema Results 10/27/18 03:00 10/27/18 03:00 Cardiac Enzymes 10/26/18 Range/Units 18:21 AST 28 (5-40) units/L CBC 10/26/18 10/27/18 Range/Units 18:21 03:00 WBC 10.2 12.6 H (4.5-11.0) K/mm3 RBC 3.83 4.00 (3.65-5.03) M/mm3 Hgb 11.7 L 12.4 (11.8-15.2) gm/dl Hct 35.7 37.3 (35.5-45.6) % Plt Count 271 315 (140-440) K/mm3 Comprehensive Metabolic Panel 10/26/18 10/27/18 Range/Units 18:21 03:00 Sodium 140 141 (137-145) mmol/L Potassium 4.3 4.4 (3.6-5.0) mmol/L Chloride 105.6 105.1 (98-107) mmol/L Carbon Dioxide 23 20 L (22-30) mmol/L BUN 21 H 21 H (9-20) mg/dL Creatinine 2.4 H 2.6 H (0.8-1.5) mg/dL Glucose 106 H 215 H (75-100) mg/dL Calcium 8.4 8.7 (8.4-10.2) mg/dL AST 28 (5-40) units/L ALT 29 (7-56) units/L Alkaline Phosphatase 45 (35-129) units/L Total Protein 5.6 L (6.3-8.2) g/dL Albumin 2.9 L (3.9-5) g/dL EKG interpretations - Telemetry EKG Rhythm: Sinus Rhythm Assessment and Plan - Patient Problems (1) Acute on chronic systolic heart failure Current Visit: Yes Status: Acute Plan to address problem: Patient has acute on chronic decompensated heart failure. In addition to diuretics, IV inotropic therapy, we will look for and obtain any records from prior ischemic workup. I will order a set of cardiac enzymes and enzymes at this time, to rule out acute coronary ischemia.
[2018-10-27] MEDS ORDERED: NACL 0.9% 1000 ML 1,000 ML ONE (13:28)
[2018-10-27] MEDS ORDERED: VERSED IV PRN (13:38)
[2018-10-27] MEDS ORDERED: DIPRIVAN 10 MG/ML IV ONE (14:00)
--- NOTE | 2018-10-27 14:16 | XRay Report ---
Single view chest: History: ET tube placement. Findings Tip of endotracheal tube is in normal position. No evidence of pneumothorax. No consolidation. Impression Tip of endotracheal tube in normal position. Limited study.
--- NOTE | 2018-10-27 16:05 | Vascular Lab Report ---
PROCEDURE: VL VENOUS DUPLEX LE BILAT TECHNIQUE: Zamora scale, color and pulsed Doppler ultrasound with color flow and spectral analysis eval uation of both lower extremities were performed to assess for deep vein thrombosis. HISTORY: leg swelling COMPARISONS: None currently available. FINDINGS: RIGHT extremity: There is normal grayscale appearance and compressibility. Normal phasic pulsed Doppler and normal col or Doppler flow are visualized. The interrogated vessels show normal augmentation. LEFT extremity: There is normal grayscale appearance and compressibility. Normal phasic pulsed Doppler and normal col or Doppler flow are visualized. The interrogated vessels show normal augmentation. IMPRESSION: * No evidence for DVT. This document is electronically signed by Alex Harris MD., Oct 27 2018 04:03:11 PM ET
[2018-10-27] MEDS: DIPRIVAN 10 MG/ML 1,000 MG/100 ML BOTTLE IV SCH ×3 (17:02→22:30)
[2018-10-27] MEDS: fentaNYL DRIP Premix 2,000 MCG/100 ML BAG IV SCH (19:39)
[2018-10-27] MEDS: LASIX IV SCH (22:23)
[2018-10-27] MEDS: HEPARIN SUB-Q SCH (22:24)
[2018-10-27] MEDS: PRAVACHOL PO SCH (22:29)
--- NOTE | 2018-10-28 01:13 | Consultation ---
PULMONARY CRITICAL CARE CONSULTATION CONSULTING PHYSICIAN: Abram Powell MD REASON FOR CONSULTATION: Acute hypoxemic respiratory failure. CHIEF COMPLAINT AND HISTORY OF PRESENT ILLNESS: The patient is a 43-year-old -[place] male with past medical history significant amongst other things for chronic kidney insufficiency and morbid obesity as well as hypertension. It is unclear if he had been compliant with his medications. He came to the Emergency Room complaining of bilateral lower extremity pain and swelling, cough, wheezing, shortness of breath, orthopnea, unintentional weight gain. Denied any history of venous thromboembolic phenomenon or PEs. He did not complain of any chest pain. He stated he might have been diagnosed with congestive heart failure in the past and this seems like an exacerbation, was evaluated in the Emergency Room and ultimately a decision was made to keep him on continuous bilevel positive airway pressure ventilation therapy, begin diuresis and transferred him to the Intensive Care Unit where I stopped by to see him. He was also started on doxycycline for possible community-acquired pneumonia. When I stopped by to see him, he was on the BiPAP machine. He apparently does have a history of cardiomyopathy and was receiving Lasix for that. He denied any acute chest pain. He denied any recent nausea, vomiting, or overt aspiration to me. He denied any history of tobacco use or abuse. He described himself as a never smoker. Denies any history of venous thromboembolic disorder. This really is as much of the history of presentation as I have and I should mention no recent long distance travel or travel out of the [place]. PAST MEDICAL HISTORY: Hypertension, asthma. He is morbidly obese. He has a history of cardiomyopathy. PAST SURGICAL HISTORY: Denied. MEDICATIONS: He was on at the time I stopped by to see him, according to the medication administration record included the following: Albuterol and Atrovent treatments nebulized q. 6 hours, aspirin 325 mg p.o. daily, Pulmicort 0.5 mg nebulized q. 12 hours, Lasix 40 mg IV b.i.d., heparin 5000 units subcutaneous b.i.d., Apresoline 50 mg p.o. q.12 hours, insulin via sliding scale, Imdur 10 mg p.o. t.i.d. scheduled, Levaquin 750 mg IV q. 48 hours, Solu-Medrol 125 mg IV q. 6 hours, metoprolol 50 mg p.o. b.i.d., milrinone drip had been ordered to start at 0.375 mcg per kilogram per minute, Pravachol 40 mg p.o. at bedtime. ALLERGIES: LISINOPRIL, nature of this allergy is unknown. DIET: Morbidly obese. Denies acute weight loss or gain in the preceding few weeks to months. FAMILY AND SOCIAL HISTORY: Lived in the community. Denied alcohol, tobacco, or illicit drug use or abuse. Family history, otherwise noncontributory. REVIEW OF SYSTEMS: Difficult to obtain secondary to his medical and mental condition. Since he has been here, though no gross hematochezia or melena, no gross hematuria, no dysuria. No hematemesis. No hemoptysis. He denies any new onset seizures. He denies any new onset focal weakness. Denied polydipsia, polyuria. Complete 13-system review of systems obtained. Pertinent positives and/or negatives as in body of history above, otherwise they are noncontributory. PHYSICAL EXAMINATION: VITAL SIGNS: At presentation, he was afebrile, temperature 98.2 degrees Fahrenheit with a pulse of 111, respiratory rate of 22, blood pressure 169/109, O2 sats were 97%, inspired oxygen concentration at that time was not recorded. When I stopped by to see him, he was on the bilevel positive pressure mode of ventilation 16/8 with a rate of 18. He was breathing in the 30s. GENERAL: He is a morbidly obese -[place] male, middle-aged, normocephalic, atraumatic, on the BiPAP machine with markedly increased respiratory effort at rest. HEAD, EYES, EARS, NOSE, AND THROAT: He is anicteric. No conjunctival erythema. Oropharynx is moist. Large neck circumference. No gross jugular venous distention, no thyromegaly. LUNGS: Auscultation of both lung lopez revealed right lower lobe greater than left lower lobe crackles, no wheezing. HEART: Heart sounds 1 and 2 are heard. They were regular in rate and rhythm at the time of my evaluation. Regular tachycardia without rubs or murmurs. ABDOMEN: Soft, full, bowel sounds are positive, nontender, no palpable hepatosplenomegaly. EXTREMITIES: With about 2+ bipedal pitting edema, no significant digital clubbing or cyanosis. Dorsalis pedis pulses are palpable bilaterally. NEUROLOGIC: Pupils are equal, round, about 4 mm, reactive to light. Extraocular muscle movements are intact. He moves all 4 extremities spontaneously. No fasciculations. No spasticity. The skin is of normal turgor without overt cellulitis or rash. LABORATORY DATA: From review, white count on admission 10,200, hemoglobin 11.7, hematocrit 35.7, platelets 271. Arterial blood gas showed a pH of 7.30, pCO2 of 46, pO2 of 94 on 70% FiO2 that was done earlier on the BiPAP settings mentioned. Serum sodium 140, potassium 4.3, chloride 106, bicarbonate 23, BUN 21, creatinine 2.4, glucose 106. BNP elevated at 8302. Albumin was low at 2.9. As of 10/09/2018, BUN was 26, creatinine was 2.1. No microbiology studies. Two blood sets of blood cultures were drawn, no growth to date. Radiographic studies were done. Unfortunately, I am unable to pull up the film. Chest x-ray reported as stable cardiomegaly with right perihilar airspace disease persistent, but improved. A 2D echocardiogram was done. It has been read, it reports ejection fraction of 20-25%, global dysfunction, moderate tricuspid regurg, no pulmonary hypertension was reported. ASSESSMENT: 1. Acute hypoxemic respiratory failure. 2. Presumptive diagnosis of acute pulmonary edema. 3. Poorly controlled hypertension. 4. Morbid obesity. 5. Acute on chronic kidney injury. PLAN: I had earlier increased the BIPAP to about 20/12 with a backup rate of 30 to match his rate of respiration. He, however, did not tolerate that. He decompensated and he has required intubation. This was performed rapid sequence intubation at bedside. We will keep him on full mechanical ventilatory support, initially tidal volume 450, rate of 30 and PEEP of 10. Arterial blood gas will be gotten about 30 minutes and we will begin to make changes from there. Ventilator-associated pneumonia bundle has been instituted. Bronchodilators will continue to be given. I doubt that this is a COPD or asthma exacerbation. We will go ahead and reduce the systemic steroids to Solu-Medrol 40 mg IV q.12 hours. Tracheal aspirate will be sent for cultures and sensitivities. We will continue empiric Levaquin monotherapy. We will, however, get a CRP level and along with lactic acid levels used to aid clinical decision making. Most recent lactate is now at 0.8. Nephrology consultation has been placed. Inputs and outputs will be monitored. I will empirically increase the frequency of the Lasix to 40 mg IV q. 8 hours. He has had good response to the diuretics. According to his nurse, good clear urine in the Bailey catheter bag. He is appropriately on GI prophylaxis. He will be placed on DVT prophylaxis. Sliding scale insulin will be started for some hypoglycemic episodes that have been noticed. Flu and pneumonia vaccination will be addressed per protocol. Venous thromboembolic disorder workup will also be continued. I will get D-dimer levels and get a stat bilateral lower extremity Dopplers. Flu and pneumonia vaccination will be addressed per protocol. Thank you very much for the consult Dr. Powell. We will follow along and make further recommendations as picture progresses/becomes clearer. He is critically ill at high risk of from cardiopulmonary system deterioration. At this time, I spent about 35-40 minutes of critical care time without overlap and excluding any procedural time that may be necessary. JOB# [id number] KEENAN/ELOINA BLACKBURN
[2018-10-28 01:23] LABS: Creatine Kinase MB 6.7 ng/mL (0.0-4.0)
[2018-10-28 01:45] LABS: Chol/HDL Ratio 2.55 %
[2018-10-28] MEDS: DUONEB *Not for PRN Use IH SCH ×4 (02:42→19:01)
--- NOTE | 2018-10-28 02:50 | XRay Report ---
PROCEDURE: XR CHEST 1V AP TECHNIQUE: A portable upright view the chest was obtained. HISTORY: follow up respiratory failure COMPARISONS: 10/27/2018 FINDINGS: The heart is moderately enlarged. The ET tube and NG tube are in good position. The lungs are minimal ly congested. There is less congestion than on the previous study. There are no localized infiltrates . Pleural fluid is not seen. The bones and soft tissues otherwise are unchanged. IMPRESSION: Cardiomegaly with resolving congestion. No localized infiltrates or effusions.. This document is electronically signed by Aaron Isabel MD., Oct 28 2018 02:48:01 AM ET
[2018-10-28] MEDS: DIPRIVAN 10 MG/ML 1,000 MG/100 ML BOTTLE IV SCH (03:44)
[2018-10-28] MEDS: fentaNYL DRIP Premix 2,000 MCG/100 ML BAG IV SCH ×2 (03:46→19:45)
[2018-10-28] MEDS: MILRINONE-D5W 20 MG/100 ML 20 MG/100 ML BAG IV SCH ×4 (03:57→23:41)
[2018-10-28 07:24] LABS: Albumin 3.2 g/dL (3.9-5); Calcium 8.9 mg/dL (8.4-10.2); Hematocrit 36.1 % (35.5-45.6); Hemoglobin 11.8 gm/dl (11.8-15.2); Mean Corpuscular HGB Conc 33 % (32-34); Mean Corpuscular Volume 94 fl (84-94); Platelet Count 335 K/mm3 (140-440); Red Blood Count 3.86 M/mm3 (3.65-5.03); Red Cell Distribution Width 16.8 % (13.2-15.2)
[2018-10-28 07:25] LABS: Creatine Kinase MB 7.7 ng/mL (0.0-4.0)
[2018-10-28] MEDS: HumaLOG SUB-Q SCH ×3 (07:58→18:30)
--- NOTE | 2018-10-28 08:10 | Progress Note ---
Assessment and Plan Assessment and plan: Patient is a 43 yo man with a history of hypertension, asthma, morbid obesity, cardiomyopathy and CKD who presented to [facility] ED on 10/26/18 with sob, leg swelling. He was started on BIPAP and admitted for CHF to the ICU -Acute on chronic systolic heart failure, EF est 20-25%: continue to diuresis, Cardiology is following, stopped IV steroids, -Acute hypoxic respiratory failure, it appears he failed Bipap and required Intubation, details are not readily available to me at this time: plan is to try to extubate with daily weaning attempts, Pulmonology is following. -Acute on chronic kidney failure, stage 3, atn +vasomotor, poa: treat the CHF, Nephrology consulted -Morbid Obesity, bmi 41.3: Paint Stockman to follow -Suspected Right Perihilar Pneumonia: on Abx -Hypertensive heart disease: monitor salt intake, daily weights and i/o, treat with antihypertensives -DVT/GI prophylaxis Full code CCT 31 minutes History Interval history: Patient was seen and examined. Follow-up on current diagnosis of CHF and respiratory failure. No overnight events reported to me. Imaging, nursing note, chart, labs and old chart reviewed. Hospitalist Physical - Physical exam Narrative exam: Gen: morbid obese bmi 41.3, ill appearing, intubated and sedated HEENT: NCAT, EOMI, PERRL, OP ETT in place Neck: supple, no adenopathy, no thyromegaly, equivocal JVD CVS/Heart: Regular tachy, normal S1S2, pulses present bilaterally Chest/Lungs: tachypneic, diminished bs bilateral, Symmetrical chest expansion, good air entry bilaterally GI/Abdomen: soft, NTND, good bowel sounds, no guarding or rebound /Bladder: no suprapubic tenderness, no CVA or paraspinal tenderness Extermity/Skin: ble edema MSK: sedated Neuro: sedated Psych: sedated - Constitutional Vitals: Temp Pulse Resp BP Pulse Ox 98.8 F 105 H 30 H 144/97 96 10/28/18 00:00 10/28/18 02:43 10/28/18 01:10 10/28/18 02:43 10/28/18 02:43 General appearance: Absent: mild distress Results - Labs CBC & Chem 7: 10/28/18 03:59 10/27/18 03:00 Labs: Laboratory Last Values WBC 11.0 K/mm3 (4.5-11.0) 10/28/18 03:59 RBC 3.86 M/mm3 (3.65-5.03) 10/28/18 03:59 Hgb 11.8 gm/dl (11.8-15.2) 10/28/18 03:59 Hct 36.1 % (35.5-45.6) 10/28/18 03:59 MCV 94 fl (84-94) 10/28/18 03:59 MCH 31 pg (28-32) 10/28/18 03:59 MCHC 33 % (32-34) 10/28/18 03:59 RDW 16.8 % (13.2-15.2) H 10/28/18 03:59 Plt Count 335 K/mm3 (140-440) 10/28/18 03:59 679.01 ng/mlDDU (0-234) H 10/27/18 14:34 POC ABG pH 7.360 (7.35-7.45) 10/28/18 03:38 POC ABG pCO2 51.3 (35-45) H 10/28/18 03:38 POC ABG pO2 83 (80-105) 10/28/18 03:38 POC ABG HCO3 28.9 (22-26 mml/L) 10/28/18 03:38 POC ABG Total CO2 30 (23-27mmol/L) 10/28/18 03:38 POC ABG O2 Sat 96 10/28/18 03:38 POC ABG Base Excess 3 ((-2) - (+3)mmol/L) 10/28/18 03:38 40 % 10/28/18 03:38 Sodium 141 mmol/L (137-145) 10/27/18 03:00 Potassium 4.4 mmol/L (3.6-5.0) 10/27/18 03:00 Chloride 105.1 mmol/L (98-107) 10/27/18 03:00 Carbon Dioxide 20 mmol/L (22-30) L 10/27/18 03:00 20 mmol/L 10/27/18 03:00 BUN 21 mg/dL (9-20) H 10/27/18 03:00 2.6 mg/dL (0.8-1.5) H 10/27/18 03:00 Estimated GFR 33 ml/min 10/27/18 03:00 8 % 10/27/18 03:00 Glucose 215 mg/dL (75-100) H 10/27/18 03:00 POC Glucose 109 (70-105) H 10/28/18 06:39 Lactic Acid 0.80 mmol/L (0.7-2.0) 10/26/18 22:56 Calcium 8.7 mg/dL (8.4-10.2) 10/27/18 03:00 Magnesium 1.90 mg/dL (1.7-2.3) 10/26/18 22:56 0.30 mg/dL (0.1-1.2) 10/26/18 18:21 AST 28 units/L (5-40) 10/26/18 18:21 ALT 29 units/L (7-56) 10/26/18 18:21 45 units/L (35-129) 10/26/18 18:21 229 units/L (55-170) H 10/28/18 00:09 CK-MB (CK-2) 6.7 ng/mL (0.0-4.0) H 10/28/18 00:09 CK-MB (CK-2) Rel Index 2.9 (0-4) 10/28/18 00:09 0.065 ng/mL (0.00-0.029) H 10/28/18 00:09 4.30 mg/dL (0.00-1.30) H 10/27/18 14:34 NT-Pro-B Natriuret Pep 8302 pg/mL (0-450) H 10/26/18 18:21 5.6 g/dL (6.3-8.2) L 10/26/18 18:21 2.9 g/dL (3.9-5) L 10/26/18 18:21 1.1 % 10/26/18 18:21 Triglycerides 80 mg/dL (2-149) 10/28/18 00:09 Cholesterol 151 mg/dL (50-199) 10/28/18 00:09 80 mg/dL (50-130) 10/28/18 00:09 59 mg/dL (40-59) 10/28/18 00:09 2.55 % 10/28/18 00:09 Active Medications - Current Medications Current Medications: Generic Name Dose Route Start Last Admin Trade Name Freq PRN Reason Stop Dose Admin Albuterol 2.5 mg 10/27/18 08:00 10/27/18 11:47 Proventil IH 2.5 mg Q6HRT PRN Administration Shortness Of Breath Albuterol/Ipratropium 1 ampul 10/27/18 02:00 10/28/18 02:42 Duoneb *Not For Prn Use* IH 1 ampul Q6HRT FAYE Administration Aspirin 325 mg 10/27/18 10:00 10/27/18 10:56 Aspirin PO 325 mg QDAY FAYE Administration Budesonide 0.5 mg 10/27/18 08:00 10/27/18 19:48 Pulmicort IH 0.5 mg Q12HRT FAYE Administration Famotidine 20 mg 10/28/18 10:00 Pepcid IV DAILY FAYE Fentanyl 50 mcg 10/27/18 13:07 Sublimaze IV Q10MIN PRN ANALGESIA Furosemide 40 mg 10/27/18 14:00 10/27/18 22:23 Lasix IV 40 mg Q8H FAYE Administration Heparin Sodium (Porcine) 5,000 unit 10/27/18 22:00 10/27/18 22:24 Heparin SUB-Q 5,000 unit BID FAYE Administration Hydralazine HCl 50 mg 10/27/18 02:30 10/27/18 22:22 Apresoline PO 50 mg Q12HR FAYE Administration Hydralazine HCl 10 mg 10/27/18 02:33 Apresoline IV Q4H PRN sb/p >150 Hydrophilic Ointment 1 applic 10/27/18 13:07 Vaseline Lip Therapy TP Q2HR PRN Dry Lips Levofloxacin/Dextrose 750 mg in 150 mls @ 100 mls/hr 10/29/18 10:00 Levaquin 750mg/150ml IV Q48HR FAYE Protocol Fentanyl Citrate 2,000 mcg in 100 mls @ 7.485 mls/hr 10/27/18 14:00 10/28/18 03:46 Fentanyl Drip Premix IV 1 mcg/kg/hr TITR FAYE 7.485 mls/hr Administration Protocol 1 MCG/KG/HR Propofol 1,000 mg in 100 mls @ 4.491 mls/hr 10/27/18 14:00 10/28/18 03:44 Diprivan 10 Mg/Ml IV 10 mcg/kg/min TITR FAYE 8.982 mls/hr Administration Protocol 5 MCG/KG/MIN Milrinone Lactate/Dextrose 20 mg in 100 mls @ 16.841 mls/hr 10/27/18 15:00 10/28/18 03:57 Milrinone-D5w 20 Mg/100 Ml IV 10/30/18 14:59 0.375 mcg/kg/min TITR FAYE 16.841 mls/hr Administration 0.375 MCG/KG/MIN Insulin Human Lispro 0 unit 10/27/18 13:00 10/28/18 07:58 Humalog SUB-Q Not Given Q6HR [facility] Protocol Isosorbide Dinitrate 10 mg 10/27/18 08:00 Isordil Titradose PO TID [facility] Methylprednisolone Sodium Succinate 40 mg 10/27/18 22:00 10/27/18 22:24 Solu-Medrol IV 40 mg Q12HR [facility] Administration Metoprolol Tartrate 50 mg 10/27/18 10:00 10/27/18 22:22 Lopressor PO 50 mg BID [facility] Administration Midazolam HCl 2 mg 10/27/18 13:38 Versed IV Q1H PRN Agitation Multi-Ingred Cream/Lotion/Oil/Oint 1 applic 10/27/18 13:07 Artificial Tears Ophth Oint OU Q4HR PRN Dry Eye(s) Pravastatin Sodium 40 mg 10/27/18 22:00 10/27/18 22:29 Pravachol PO 40 mg QHS [facility] Administration
[2018-10-28] MEDS: PULMICORT IH SCH ×2 (08:25→19:01)
--- NOTE | 2018-10-28 08:38 | Consultation ---
History of Present Illness - Reason for Consult Consult date: 10/28/18 acute renal failure, chronic renal failure - History of Present Illness Very pleasant 43-year-old morbidly obese -[place] male, with a history of cardiomyopathy with latest echocardiogram, in the hospital showing ejection fraction of 20-25%, with also underlying history of chronic kidney disease likely in the setting of hypertension, and cardiorenal syndrome, presents to the emergency department secondary to worsening shortness of breath and progressively worsening lower extremity edema. He unfortunately decompensated and secondary to his worsening respiratory distress had to be intubated. He is being seen in the ICU at this time. He has been appropriately diuresed with response noted. Chest x-ray does show relief of congestion. He remains intubated however with possible plan for weaning today. Nephrology consulted secondary to acute on chronic kidney disease. Patient unable to tell us if he's seen a previous immigration consultant before due to his chronic kidney disease as he remains intubated. I do not have any other notes here in our hospital system charts indicating whether he's been seen by any other immigration consultant here at this hospital. He is awake this morning and following commands and remains on a small amount of sedation. He has had no acute events overnight per nursing staff. He is currently on Lasix 40 mg IV every 8. He has put out more than 2 L of urine over the last 24 hours. His urine output from 8 PM unfortunately was not documented said there is a confusion whether he's had extra urine output that has not been accounted for. Past History Past Medical History: heart failure, hypertension, renal failure Past Surgical History: Other (knee surgery as his child) Social history: no significant social history Family history: hypertension Medications and Allergies Allergies Allergy/AdvReac Type Severity Reaction Status Date / Time lisinopril Allergy Hives Verified 10/09/18 09:19 Home Medications Medication Instructions Recorded Confirmed Last Taken Type Albuterol Sulfate [Albuterol 1 - 2 puff IH Q6H PRN 10/09/18 10/27/18 Unknown History Sulfate Hfa] Ciprofloxacin HCl [Ciprofloxacin 500 mg PO Q12HR #14 tab 10/09/18 10/27/18 Unknown Rx TAB] Furosemide [Lasix] 20 mg PO QDAY 10/09/18 10/27/18 Unknown History Furosemide [Lasix] 20 mg PO QDAY #30 tablet 10/09/18 10/27/1810/26/19 Rx Hydralazine HCl 50 mg PO Q12H 10/09/18 10/27/18 10/26/18 History Isosorbide Dinitrate [Isordil 10 mg PO TID 10/09/18 10/27/18 Unknown History Titradose] Metoprolol [Lopressor TAB] 25 mg PO BID #60 tablet 10/09/18 10/27/18 10/26/18 Rx Simvastatin 20 mg PO DAILY #30 tablet 10/09/18 10/27/18 10/26/18 Rx hydroCHLOROthiazide [Hctz] 12.5 mg PO QDAY #30 capsule 10/09/18 10/27/18 10/26/18 Rx Active Meds: Active Medications Albuterol (Proventil) 2.5 mg IH Q6HRT PRN PRN Reason: Shortness Of Breath Last Admin: 10/27/18 11:47 Dose: 2.5 mg Documented by: Albuterol/Ipratropium (Duoneb *Not For Prn Use*) 1 ampul IH Q6HRT [facility] Last Admin: 10/28/18 08:25 Dose: 1 ampul Documented by: Aspirin (Aspirin) 325 mg PO QDAY [facility] Last Admin: 10/27/18 10:56 Dose: 325 mg Documented by: Budesonide (Pulmicort) 0.5 mg IH Q12HRT [facility] Last Admin: 10/28/18 08:25 Dose: 0.5 mg Documented by: Famotidine (Pepcid) 20 mg IV DAILY [facility] Fentanyl (Sublimaze) 50 mcg IV Q10MIN PRN PRN Reason: ANALGESIA Furosemide (Lasix) 40 mg IV Q8H [facility] Last Admin: 10/27/18 22:23 Dose: 40 mg Documented by: Heparin Sodium (Porcine) (Heparin) 5,000 unit SUB-Q BID [facility] Last Admin: 10/27/18 22:24 Dose: 5,000 unit Documented by: Hydralazine HCl (Apresoline) 50 mg PO Q12HR [facility] Last Admin: 10/27/18 22:22 Dose: 50 mg Documented by: Hydralazine HCl (Apresoline) 10 mg IV Q4H PRN PRN Reason: sb/p >150 Hydrophilic Ointment (Vaseline Lip Therapy) 1 applic TP Q2HR PRN PRN Reason: Dry Lips Levofloxacin/Dextrose (Levaquin 750mg/150ml) 750 mg in 150 mls @ 100 mls/hr IV Q48HR [facility]; Protocol Fentanyl Citrate (Fentanyl Drip Premix) 2,000 mcg in 100 mls @ 7.485 mls/hr IV TITR [facility]; Protocol Last Admin: 10/28/18 03:46 Dose: 1 mcg/kg/hr, 7.485 mls/hr Documented by: Propofol (Diprivan 10 Mg/Ml) 1,000 mg in 100 mls @ 4.491 mls/hr IV TITR [facility]AYE; Protocol Last Titration: 10/28/18 08:29 Dose: 0 mcg/kg/min, 0 mls/hr Documented by: Milrinone Lactate/Dextrose (Milrinone-D5w 20 Mg/100 Ml) 20 mg in 100 mls @ 16.841 mls/hr IV TITR FAYE Stop: 10/30/18 14:59 Last Admin: 10/28/18 03:57 Dose: 0.375 mcg/kg/min, 16.841 mls/hr Documented by: Insulin Human Lispro (Humalog) 0 unit SUB-Q Q6HR [facility]; Protocol Last Admin: 10/28/18 07:58 Dose: Not Given Documented by: Isosorbide Dinitrate (Isordil Titradose) 10 mg PO TID [facility] Metoprolol Tartrate (Lopressor) 50 mg PO BID [facility] Last Admin: 10/27/18 22:22 Dose: 50 mg Documented by: Midazolam HCl (Versed) 2 mg IV Q1H PRN PRN Reason: Agitation Multi-Ingred Cream/Lotion/Oil/Oint (Artificial Tears Ophth Oint) 1 applic OU Q4HR PRN PRN Reason: Dry Eye(s) Pravastatin Sodium (Pravachol) 40 mg PO QHS [facility] Last Admin: 10/27/18 22:29 Dose: 40 mg Documented by: Review of Systems ROS unobtainable: due to endotracheal tube Exam - Vital Signs Vital signs: Vital Signs Temp Pulse Resp BP Pulse Ox 98.2 F 111 H 22 169/109 97 10/26/18 18:04 10/26/18 18:04 10/26/18 18:04 10/26/18 18:04 10/26/18 18:04 - General Appearance General appearance: well-developed, appears stated age, obese EENT: ATNC, PERRL Neck: Present: neck supple, trachea midline Respiratory: Decreased Breath Sounds Heart: regular, S1S2 Gastrointestinal: Present: normal, normoactive bowel sounds Integumentary: no rash, warm and dry Neurologic: no focal deficit, no asterixis Musculoskeletal: Present: other (2+ pitting edema) Psychiatric: mood/affect appropriate, cooperative Results - Lab Results 10/28/18 03:59 10/28/18 03:59 Most recent lab results Calcium 8.9 mg/dL (8.4-10.2) 10/28/18 03:59 Magnesium 1.90 mg/dL (1.7-2.3) 10/26/18 22:56 Assessment and Plan - Patient Problems (1) Cardiorenal syndrome with renal failure Current Visit: Yes Status: Acute Plan to address problem: Patient likely has underlying chronic kidney disease with now an acute injury secondary to cardiorenal syndrome in the setting of what seems to be a CHF exacerbation. Agree with current management with diuretic treatment. Lasix currently at 40 mg IV every 8. We'll continue with current regimen. Strict I's and O's and reiterated to nursing staff importance of monitoring his urine output in order to assess diuretic response. Chest x-rays noted with clearing of the aforementioned pulmonary edema and congestion. Weaning protocol from ventilator per pulmonary recommendations. We will obtain kidney ultrasound as well as a urinalysis along with urine electrolyte studies for further assessment of his acute kidney injury. He likely will need to follow up with nephrology as an outpatient. Once extubated we'll try to confirm from him information of whether he has seen nephrology in the past. (2) Acute on chronic systolic heart failure Current Visit: Yes Status: Acute Plan to address problem: Appropriate diuresis at this time with response noted. He has slight fluctuations in serum creatinine which is expected with the Lasix administration. We'll continue to monitor closely. Echocardiogram done indicat ing again ejection fraction 20-25%. Further recommendations per cardiology (3) Acute and chronic respiratory failure with hypoxia Current Visit: Yes Status: Acute Plan to address problem: Patient remains intubated at this time. Further management per pulmonary recommendations. (4) Hypertensive chronic kidney disease with stage 1 through stage 4 chronic kidney disease, or unspecified chronic kidney disease Current Visit: Yes Status: Acute Plan to address problem: We'll continue to monitor on his current regimen at this time. Blood pressures have been stable overnight. (5) Pneumonia Current Visit: No Status: Acute Plan to address problem: Please ensure that antibiotics are dosed appropriately for his decreased creatinine clearance.
[2018-10-28] MEDS: ISORDIL TITRADOSE PO SCH ×3 (08:54→22:32)
[2018-10-28] MEDS ORDERED: PEPCID IV SCH (10:00)
[2018-10-28] MEDS: HEPARIN SUB-Q SCH ×2 (10:30→21:35)
[2018-10-28] MEDS: LOPRESSOR PO SCH ×2 (10:30→22:33)
[2018-10-28] MEDS: APRESOLINE PO SCH ×2 (10:30→22:33)
[2018-10-28] MEDS: ASPIRIN PO SCH (10:30)
--- NOTE | 2018-10-28 11:38 | Progress Note ---
Assessment and Plan Acute hypoxemic respiratory failure. Presumptive diagnosis of acute pulmonary edema. HFrEF (20-25%) Poorly controlled hypertension. Morbid obesity. Acute on chronic kidney injury. - reduced set rate to 20/min on MVS and will drop further - daily SAT's & SBT assessment as tolerated - nephrology consulted re: azotemia - continue empiric Levaquin monotherapy - sedation target for RASS 0 to -1 (off sedation now) - continue bronchodilators with pulmonary hygiene per RT - continue GI & VTE prophylaxis - continue to wean supplemental oxygen to keep O2 sats 88-90% - continue Lung protective strategies - Daily ABGs/CXR for now - VAP bundle addressed - Continue cardioprotective measures - diuresis per nephrologgy at this point (oliguria now noted) - Replete electrolytes as indicated - Tracheal aspirate cultures are negative to date - straight cath to get sample for urine lytes and other studies - Monitor renal indices closely - Avoid nephrotoxic agents, adjust all medications for CrCL - Strict intake and output monitoring - Tube feedings as tolerated - Aspiration precautions - Accuchecks with glycemic control. Target glucose of 140-180 mg/dL - Maintenance of sleep -wake cycle - Mobility as tolerated by hemodynamics - Influenza and pneumonia vaccination per protocol ..care plan discussed at length with RN/RT at the bedside ..discussed in ICU-IDT rounds PROGNOSIS: GUARDED CONDITION: CRITICAL CODE STATUS: FULL CODE The high probability of a clinically significant, sudden or life-threatening deterioration of the [respiratory, neurology, renal] system(s) required my full and direct attention, intervention and personal management. The aggregate critical care time was [34] minutes without overlap. Time includes spent on; [x] Data Review and interpretation [x] Patient assessment and monitoring of vital signs [x] Documentation [x] Medication orders and management Subjective Date of service: 10/28/18 Interval history: Patient is seen today for: Acute hypoxemic respiratory failure; Presumptive diagnosis of acute pulmonary edema; Poorly controlled hypertension. Seen and examined at bedside; 24hour events reviewed; nursing and respiratory care staff consulted; no adverse overnight events reported to me; remains on MVS but doing much better; oxygenation is improved; azotemia is worse and serum creatinine now 3.0; denies acute chest pains or palpitations Objective Vital Signs - 12hr 10/27/18 10/27/18 10/28/18 23:40 23:50 00:00 Temperature 98.8 F Pulse Rate 97 H 96 H 94 H Pulse Rate [ Anterior Bilateral Throughout] Pulse Rate [ 95 H Apical] Respiratory 30 H 30 H 30 H Rate Respiratory Rate [Anterior Bilateral Throughout] Blood Pressure 108/56 107/55 105/52 O2 Sat by Pulse 95 94 95 Oximetry 10/28/18 10/28/18 10/28/18 00:10 00:21 00:30 Temperature Pulse Rate 94 H 95 H 93 H Pulse Rate [ Anterior Bilateral Throughout] Pulse Rate [ Apical] Respiratory 30 H 30 H 30 H Rate Respiratory Rate [Anterior Bilateral Throughout] Blood Pressure 103/50 111/42 98/53 O2 Sat by Pulse 95 98 97 Oximetry 10/28/18 10/28/18 10/28/18 00:40 00:50 01:00 Temperature Pulse Rate 92 H 91 H 90 Pulse Rate [ Anterior Bilateral Throughout] Pulse Rate [ Apical] Respiratory 30 H 30 H 30 H Rate Respiratory Rate [Anterior Bilateral Throughout] Blood Pressure 97/51 92/43 87/40 O2 Sat by Pulse 96 98 96 Oximetry 10/28/18 10/28/18 10/28/18 01:10 01:20 01:30 Temperature Pulse Rate 91 H 90 90 Pulse Rate [ Anterior Bilateral Throughout] Pulse Rate [ Apical] Respiratory 30 H 30 H 30 H Rate Respiratory Rate [Anterior Bilateral Throughout] Blood Pressure 91/42 91/43 95/44 O2 Sat by Pulse 96 96 97 Oximetry 10/28/18 10/28/18 10/28/18 01:40 01:50 02:00 Temperature Pulse Rate 90 93 H 98 H Pulse Rate [ Anterior Bilateral Throughout] Pulse Rate [ Apical] Respiratory 30 H 25 H 30 H Rate Respiratory Rate [Anterior Bilateral Throughout] Blood Pressure 98/49 113/63 136/80 O2 Sat by Pulse 99 97 97 Oximetry 10/28/18 10/28/18 10/28/18 02:10 02:20 02:30 Temperature Pulse Rate 100 H 101 H 100 H Pulse Rate [ Anterior Bilateral Throughout] Pulse Rate [ Apical] Respiratory 14 30 H 30 H Rate Respiratory Rate [Anterior Bilateral Throughout] Blood Pressure 126/80 134/88 138/88 O2 Sat by Pulse 95 93 Oximetry 10/28/18 10/28/18 10/28/18 02:40 02:43 02:50 Temperature Pulse Rate 103 H 105 H 105 H Pulse Rate [ Anterior Bilateral Throughout] Pulse Rate [ Apical] Respiratory 18 15 Rate Respiratory Rate [Anterior Bilateral Throughout] Blood Pressure 147/93 144/97 140/91 O2 Sat by Pulse 95 96 Oximetry 10/28/18 10/28/18 10/28/18 03:00 03:10 03:20 Temperature Pulse Rate 103 H 101 H 102 H Pulse Rate [ Anterior Bilateral Throughout] Pulse Rate [ Apical] Respiratory 22 30 H 30 H Rate Respiratory Rate [Anterior Bilateral Throughout] Blood Pressure 131/81 131/80 127/76 O2 Sat by Pulse 95 96 96 Oximetry 10/28/18 10/28/18 10/28/18 03:30 03:40 03:50 Temperature Pulse Rate 105 H 101 H 100 H Pulse Rate [ Anterior Bilateral Throughout] Pulse Rate [ Apical] Respiratory 23 30 H 30 H Rate Respiratory Rate [Anterior Bilateral Throughout] Blood Pressure 141/87 134/68 116/70 O2 Sat by Pulse 94 94 92 Oximetry 10/28/18 10/28/18 10/28/18 04:00 04:10 04:20 Temperature Pulse Rate 103 H 102 H 99 H Pulse Rate [ Anterior Bilateral Throughout] Pulse Rate [ Apical] Respiratory 21 30 H 30 H Rate Respiratory Rate [Anterior Bilateral Throughout] Blood Pressure 133/73 112/61 107/53 O2 Sat by Pulse 94 93 94 Oximetry 10/28/18 10/28/18 10/28/18 04:30 04:40 04:50 Temperature Pulse Rate 97 H 99 H 100 H Pulse Rate [ Anterior Bilateral Throughout] Pulse Rate [ Apical] Respiratory 30 H 30 H 30 H Rate Respiratory Rate [Anterior Bilateral Throughout] Blood Pressure 110/57 103/62 114/60 O2 Sat by Pulse 94 97 Oximetry 10/28/18 10/28/18 10/28/18 05:00 05:10 05:20 Temperature Pulse Rate 98 H 99 H 97 H Pulse Rate [ Anterior Bilateral Throughout] Pulse Rate [ Apical] Respiratory 30 H 30 H 30 H Rate Respiratory Rate [Anterior Bilateral Throughout] Blood Pressure 111/54 99/51 93/44 O2 Sat by Pulse 94 94 94 Oximetry 10/28/18 10/28/18 10/28/18 05:30 05:40 05:50 Temperature Pulse Rate 96 H 96 H 100 H Pulse Rate [ Anterior Bilateral Throughout] Pulse Rate [ Apical] Respiratory 30 H 30 H 23 Rate Respiratory Rate [Anterior Bilateral Throughout] Blood Pressure 94/41 98/48 116/62 O2 Sat by Pulse 94 94 100 Oximetry 10/28/18 10/28/18 10/28/18 06:01 06:11 06:20 Temperature Pulse Rate 101 H 99 H 103 H Pulse Rate [ Anterior Bilateral Throughout] Pulse Rate [ Apical] Respiratory 13 11 L 12 Rate Respiratory Rate [Anterior Bilateral Throughout] Blood Pressure 121/53 119/62 153/73 O2 Sat by Pulse 94 95 95 Oximetry 10/28/18 10/28/18 10/28/18 06:30 06:40 06:50 Temperature Pulse Rate 102 H 102 H 105 H Pulse Rate [ Anterior Bilateral Throughout] Pulse Rate [ Apical] Respiratory 30 H 18 10 L Rate Respiratory Rate [Anterior Bilateral Throughout] Blood Pressure 129/70 127/75 139/73 O2 Sat by Pulse 97 99 97 Oximetry 10/28/18 10/28/18 10/28/18 07:00 07:10 07:20 Temperature Pulse Rate 104 H 104 H 107 H Pulse Rate [ Anterior Bilateral Throughout] Pulse Rate [ Apical] Respiratory 12 11 L 13 Rate Respiratory Rate [Anterior Bilateral Throughout] Blood Pressure 113/76 114/77 113/60 O2 Sat by Pulse 98 97 97 Oximetry 10/28/18 10/28/18 10/28/18 07:31 07:40 07:50 Temperature Pulse Rate 109 H 106 H 108 H Pulse Rate [ Anterior Bilateral Throughout] Pulse Rate [ Apical] Respiratory 10 L 10 L 11 L Rate Respiratory Rate [Anterior Bilateral Throughout] Blood Pressure 123/63 119/57 128/52 O2 Sat by Pulse 97 98 98 Oximetry 10/28/18 10/28/18 10/28/18 08:00 08:11 08:16 Temperature 98.1 F Pulse Rate 110 H 109 H 107 H Pulse Rate [ Anterior Bilateral Throughout] Pulse Rate [ Apical] Respiratory 9 L 10 L Rate Respiratory Rate [Anterior Bilateral Throughout] Blood Pressure 108/57 101/59 121/70 O2 Sat by Pulse 98 96 100 Oximetry 10/28/18 10/28/18 10/28/18 08:20 08:26 08:35 Temperature Pulse Rate 108 H 111 H Pulse Rate [ 106 H Anterior Bilateral Throughout] Pulse Rate [ Apical] Respiratory 14 22 Rate Respiratory 30 H Rate [Anterior Bilateral Throughout] Blood Pressure 121/70 O2 Sat by Pulse 100 99 Oximetry 10/28/18 10/28/18 10/28/18 08:40 08:50 08:54 Temperature Pulse Rate 111 H 110 H 109 H Pulse Rate [ Anterior Bilateral Throughout] Pulse Rate [ Apical] Respiratory 15 30 H Rate Respiratory Rate [Anterior Bilateral Throughout] Blood Pressure 128/73 135/77 135/77 O2 Sat by Pulse 97 97 Oximetry 10/28/18 10/28/18 10/28/18 09:00 09:10 09:15 Temperature Pulse Rate 111 H 113 H Pulse Rate [ 112 H Anterior Bilateral Throughout] Pulse Rate [ Apical] Respiratory 20 17 Rate Respiratory 33 H Rate [Anterior Bilateral Throughout] Blood Pressure 134/80 122/72 O2 Sat by Pulse 98 96 Oximetry 10/28/18 10/28/18 10/28/18 09:21 09:30 09:40 Temperature Pulse Rate 111 H 109 H 110 H Pulse Rate [ Anterior Bilateral Throughout] Pulse Rate [ Apical] Respiratory 22 29 H 20 Rate Respiratory Rate [Anterior Bilateral Throughout] Blood Pressure 154/81 148/78 161/78 O2 Sat by Pulse 92 95 93 Oximetry 10/28/18 10/28/18 10/28/18 09:50 10:00 10:10 Temperature Pulse Rate 111 H 110 H 110 H Pulse Rate [ Anterior Bilateral Throughout] Pulse Rate [ Apical] Respiratory 30 H 29 H 22 Rate Respiratory Rate [Anterior Bilateral Throughout] Blood Pressure 145/72 154/80 129/75 O2 Sat by Pulse 94 97 93 Oximetry 10/28/18 10/28/18 10/28/18 10:20 10:30 10:31 Temperature Pulse Rate 112 H 113 H 112 H Pulse Rate [ Anterior Bilateral Throughout] Pulse Rate [ Apical] Respiratory 11 L 17 Rate Respiratory Rate [Anterior Bilateral Throughout] Blood Pressure 120/67 132/75 155/62 O2 Sat by Pulse 93 95 Oximetry 10/28/18 10/28/18 10:40 10:50 Temperature Pulse Rate 113 H 113 H Pulse Rate [ Anterior Bilateral Throughout] Pulse Rate [ Apical] Respiratory 14 17 Rate Respiratory Rate [Anterior Bilateral Throughout] Blood Pressure 158/85 166/78 O2 Sat by Pulse 95 97 Oximetry Constitutional: no acute distress, alert, other (middle aged obese AAM, normocephalic and atraumatic) Eyes: non-icteric ENT: oropharynx moist, other (ETT 24 cm LATOSHA) Neck: supple, no lymphadenopathy, no JVD, other (large neck circumference) Effort: mildly labored Ascultation: Bilateral: rales Percussion: Bilateral: not dull Cardiovascular: regular rate and rhythm Gastrointestinal: normoactive bowel sounds, soft, non-tender, non-distended Integumentary: normal Extremities: no cyanosis, pulses normal, no ischemia or petechiae, edema (1+) Neurologic: normal mental status, non-focal exam, pupils equal and round, CN II- XII normal, motor strength normal and Psychiatric: mood appropriate, affect normal CBC and BMP: 10/28/18 03:59 10/28/18 03:59 ABG, PT/INR, D-dimer: ABG POC ABG pH 7.360 (7.35-7.45) 10/28/18 03:38 POC ABG pCO2 51.3 (35-45) H 10/28/18 03:38 POC ABG pO2 83 (80-105) 10/28/18 03:38 POC ABG HCO3 28.9 (22-26 mml/L) 10/28/18 03:38 POC ABG Total CO2 30 (23-27mmol/L) 10/28/18 03:38 POC ABG O2 Sat 96 10/28/18 03:38 PT/INR, D-dimer 679.01 ng/mlDDU (0-234) H 10/27/18 14:34 Abnormal lab findings: Abnormal Labs 10/26/18 10/26/18 10/26/18 18:21 18:21 22:56 WBC Hgb 11.7 L RDW 17.0 H D-Dimer POC ABG pH POC ABG pCO2 Carbon Dioxide BUN 21 H Creatinine 2.4 H Glucose 106 H POC Glucose Total Creatine Kinase 287 H CK-MB (CK-2) Troponin T C-Reactive Protein NT-Pro-B Natriuret Pep 8302 H Total Protein 5.6 L Albumin 2.9 L 10/27/18 10/27/18 10/27/18 02:58 03:00 03:00 WBC 12.6 H Hgb RDW 16.5 H D-Dimer POC ABG pH 7.301 L POC ABG pCO2 45.9 H Carbon Dioxide 20 L BUN 21 H Creatinine 2.6 H Glucose 215 H POC Glucose Total Creatine Kinase CK-MB (CK-2) Troponin T C-Reactive Protein NT-Pro-B Natriuret Pep Total Protein Albumin 10/27/18 10/27/18 10/27/18 12:04 14:34 14:34 WBC Hgb RDW D-Dimer 679.01 H POC ABG pH POC ABG pCO2 Carbon Dioxide BUN Creatinine Glucose POC Glucose 124 H Total Creatine Kinase CK-MB (CK-2) Troponin T C-Reactive Protein 4.30 H NT-Pro-B Natriuret Pep Total Protein Albumin 10/27/18 10/27/18 10/27/18 15:30 17:52 18:30 WBC Hgb RDW D-Dimer POC ABG pH 7.336 L POC ABG pCO2 50.7 H Carbon Dioxide BUN Creatinine Glucose POC Glucose 123 H 125 H Total Creatine Kinase CK-MB (CK-2) Troponin T C-Reactive Protein NT-Pro-B Natriuret Pep Total Protein Albumin 10/27/18 10/28/18 10/28/18 23:52 00:09 03:38 WBC Hgb RDW D-Dimer POC ABG pH POC ABG pCO2 51.3 H Carbon Dioxide BUN Creatinine Glucose POC Glucose 113 H Total Creatine Kinase 229 H CK-MB (CK-2) 6.7 H Troponin T 0.065 H C-Reactive Protein NT-Pro-B Natriuret Pep Total Protein Albumin 10/28/18 10/28/18 10/28/18 03:59 03:59 06:39 WBC Hgb RDW 16.8 H D-Dimer POC ABG pH POC ABG pCO2 Carbon Dioxide BUN 31 H Creatinine 3.0 H Glucose 127 H POC Glucose 109 H Total Creatine Kinase CK-MB (CK-2) Troponin T C-Reactive Protein NT-Pro-B Natriuret Pep Total Protein 6.1 L Albumin 3.2 L 10/28/18 10:05 WBC Hgb RDW D-Dimer POC ABG pH POC ABG pCO2 Carbon Dioxide BUN Creatinine Glucose POC Glucose Total Creatine Kinase 215 H CK-MB (CK-2) 7.7 H Troponin T 0.122 H* D C-Reactive Protein NT-Pro-B Natriuret Pep Total Protein Albumin Chest x-ray: image reviewed (improved interstitial edema) Allied health notes reviewed: nursing
--- NOTE | 2018-10-28 12:30 | Progress Note ---
Assessment and Plan Decompensated systolic heart failure EF 20-25% by echo this admission Chronic renal failure Respiratory failure intubated on the vent Hypertension Continue aggressive medial therapy for systolic heart failure to include a trial of IV milrinone. Subjective Date of service: 10/28/18 Interval history: Patient is alert, but intubated on mechanical ventilation. IV milrinone continues. Objective Vital Signs Temp Pulse Pulse Pulse Pulse Pulse Pulse 10/28/18 11:47 111 H 10/28/18 11:40 111 H 10/28/18 11:30 111 H 10/28/18 11:20 111 H 10/28/18 11:10 112 H 10/28/18 11:00 112 H 10/28/18 10:50 113 H 10/28/18 10:40 113 H 10/28/18 10:31 112 H 10/28/18 10:30 113 H 10/28/18 10:20 112 H 10/28/18 10:10 110 H 10/28/18 10:00 110 H 10/28/18 09:50 111 H 10/28/18 09:40 110 H 10/28/18 09:30 109 H 10/28/18 09:21 111 H 10/28/18 09:15 112 H 10/28/18 09:10 113 H 10/28/18 09:00 111 H 10/28/18 08:54 109 H 10/28/18 08:50 110 H 10/28/18 08:40 111 H 10/28/18 08:35 111 H 10/28/18 08:26 106 H 10/28/18 08:20 108 H 10/28/18 08:16 107 H 10/28/18 08:11 109 H 10/28/18 08:00 98.1 F 110 H 110 H 10/28/18 07:50 108 H 10/28/18 07:40 106 H 10/28/18 07:31 109 H 10/28/18 07:20 107 H 10/28/18 07:10 104 H 10/28/18 07:00 104 H 10/28/18 06:50 105 H 10/28/18 06:40 102 H 10/28/18 06:30 102 H 10/28/18 06:20 103 H 10/28/18 06:11 99 H 10/28/18 06:01 101 H 10/28/18 05:50 100 H 10/28/18 05:40 96 H 10/28/18 05:30 96 H 10/28/18 05:20 97 H 10/28/18 05:10 99 H 10/28/18 05:00 98 H 10/28/18 04:50 100 H 10/28/18 04:40 99 H 10/28/18 04:30 97 H 10/28/18 04:20 99 H 10/28/18 04:10 102 H 10/28/18 04:00 103 H 10/28/18 03:50 100 H 10/28/18 03:40 101 H 10/28/18 03:30 105 H 10/28/18 03:20 102 H 10/28/18 03:10 101 H 10/28/18 03:00 103 H 10/28/18 02:50 105 H 10/28/18 02:43 105 H 10/28/18 02:40 103 H 10/28/18 02:30 100 H 10/28/18 02:20 101 H 10/28/18 02:10 100 H 10/28/18 02:00 98 H 10/28/18 01:50 93 H 10/28/18 01:40 90 10/28/18 01:30 90 10/28/18 01:20 90 10/28/18 01:10 91 H 10/28/18 01:00 90 10/28/18 00:50 91 H 10/28/18 00:40 92 H 10/28/18 00:30 93 H 10/28/18 00:21 95 H 10/28/18 00:10 94 H 10/28/18 00:00 98.8 F 94 H 95 H 10/27/18 23:50 96 H 10/27/18 23:40 97 H 10/27/18 23:30 98 H 10/27/18 23:20 97 H 10/27/18 23:16 97 H 10/27/18 23:10 98 H 10/27/18 23:00 102 H 10/27/18 22:50 108 H 10/27/18 22:40 113 H 10/27/18 22:30 115 H 10/27/18 22:22 116 H 10/27/18 22:20 115 H 10/27/18 22:10 117 H 10/27/18 22:00 116 H 10/27/18 21:50 116 H 10/27/18 21:40 115 H 10/27/18 21:30 114 H 10/27/18 21:20 115 H 10/27/18 21:13 116 H 10/27/18 21:10 115 H 10/27/18 21:02 114 H 10/27/18 21:00 114 H 10/27/18 20:58 113 H 10/27/18 20:50 113 H 10/27/18 20:40 112 H 10/27/18 20:30 114 H 10/27/18 20:20 115 H 10/27/18 20:10 116 H 10/27/18 20:00 98.4 F 116 H 115 H 10/27/18 19:54 114 H 10/27/18 19:50 118 H 10/27/18 19:41 128 H 10/27/18 19:30 113 H 10/27/18 19:25 113 H 10/27/18 19:20 113 H 10/27/18 19:10 113 H 10/27/18 19:00 113 H 10/27/18 18:50 114 H 10/27/18 18:40 114 H 10/27/18 18:30 114 H 10/27/18 18:20 112 H 10/27/18 18:10 111 H 10/27/18 18:00 111 H 10/27/18 17:50 111 H 10/27/18 17:40 110 H 10/27/18 17:30 113 H 10/27/18 17:26 114 H 10/27/18 17:20 113 H 10/27/18 17:10 113 H 10/27/18 17:00 118 H 10/27/18 16:50 124 H 10/27/18 16:40 113 H 10/27/18 16:30 113 H 10/27/18 16:20 114 H 10/27/18 16:15 112 H 10/27/18 16:10 112 H 10/27/18 16:00 98.6 F 113 H 110 H 115 H 120 H 10/27/18 15:51 111 H 10/27/18 15:40 113 H 10/27/18 15:30 116 H 117 H 10/27/18 15:20 122 H 10/27/18 15:10 114 H 10/27/18 15:00 116 H 10/27/18 14:50 118 H 10/27/18 14:40 120 H 10/27/18 14:30 122 H 10/27/18 14:21 123 H 10/27/18 14:11 134 H 10/27/18 14:00 135 H 10/27/18 13:53 135 H 10/27/18 13:50 133 H 10/27/18 13:40 141 H 10/27/18 13:31 132 H 10/27/18 13:21 123 H 10/27/18 13:11 133 H 10/27/18 13:01 141 H 10/27/18 12:51 132 H 10/27/18 12:41 124 H 10/27/18 12:31 122 H Resp Resp Resp BP Pulse Ox 10/28/18 11:47 116/70 99 10/28/18 11:40 15 152/86 93 10/28/18 11:30 21 158/86 93 10/28/18 11:20 30 H 151/78 94 10/28/18 11:10 18 148/84 92 10/28/18 11:00 16 151/66 99 10/28/18 10:50 17 166/78 97 10/28/18 10:40 14 158/85 95 10/28/18 10:31 17 155/62 95 10/28/18 10:30 132/75 10/28/18 10:20 11 L 120/67 93 10/28/18 10:10 22 129/75 93 10/28/18 10:00 29 H 154/80 97 10/28/18 09:50 30 H 145/72 94 10/28/18 09:40 20 161/78 93 10/28/18 09:30 29 H 148/78 95 10/28/18 09:21 22 154/81 92 10/28/18 09:15 33 H 10/28/18 09:10 17 122/72 96 10/28/18 09:00 20 134/80 98 10/28/18 08:54 135/77 10/28/18 08:50 30 H 135/77 97 10/28/18 08:40 15 128/73 97 10/28/18 08:35 22 99 10/28/18 08:26 30 H 05/07/19 08:20 14 121/70 100 10/28/18 08:16 121/70 100 10/28/18 08:11 10 L 101/59 96 10/28/18 08:00 30 H 108/57 97 10/28/18 07:50 11 L 128/52 98 10/28/18 07:40 10 L 119/57 98 10/28/18 07:31 10 L 123/63 97 07 07:20 13 113/60 97 10/28/18 07:10 11 L 114/77 97 10/28/18 07:00 12 113/76 98 10/28/18 06:50 10 L 139/73 97 10/28/18 06:40 18 127/75 99 10/28/18 06:30 30 H 129/70 97 10/28/18 06:20 12 153/73 95 10/28/18 06:11 11 L 119/62 95 10/28/18 06:01 13 121/53 94 10/28/18 05:50 23 116/62 100 10/28/18 05:40 30 H 98/48 94 10/28/18 05:30 30 H 94/41 94 07 05:20 30 H 93/44 94 10/28/18 05:10 30 H 99/51 94 10/28/18 05:00 30 H 111/54 94 10/28/18 04:50 30 H 114/60 97 10/28/18 04:40 30 H 103/62 07 04:30 30 H 110/57 94 07 04:20 30 H 107/53 94 07 04:10 30 H 112/61 93 10/28/18 04:00 21 133/73 94 10/28/18 03:50 30 H 116/70 92 07 03:40 30 H 134/68 94 07 03:30 23 141/87 94 10/28/18 03:20 30 H 127/76 96 07 03:10 30 H 131/80 96 07 03:00 22 131/81 95 07 02:50 15 140/91 0507 02:43 144/97 96 07 02:40 18 147/93 95 05/07/19 02:30 30 H 138/88 10/28/18 02:20 30 H 134/88 93 10/28/18 02:10 14 126/80 95 10/28/18 02:00 30 H 136/80 97 10/28/18 01:50 25 H 113/63 97 10/28/18 01:40 30 H 98/49 99 10/28/18 01:30 30 H 95/44 97 10/28/18 01:20 30 H 91/43 96 10/28/18 01:10 30 H 91/42 96 10/28/18 01:00 30 H 87/40 96 10/28/18 00:50 30 H 92/43 98 10/28/18 00:40 30 H 97/51 96 10/28/18 00:30 30 H 98/53 97 10/28/18 00:21 30 H 111/42 98 10/28/18 00:10 30 H 103/50 95 10/28/18 00:00 30 H 105/52 95 10/27/18 23:50 30 H 107/55 94 10/27/18 23:40 30 H 108/56 95 10/27/18 23:30 30 H 121/70 95 10/27/18 23:20 22 117/61 97 10/27/18 23:16 116/66 99 10/27/18 23:10 30 H 111/64 97 10/27/18 23:00 30 H 123/70 95 10/27/18 22:50 30 H 133/83 96 10/27/18 22:40 30 H 139/81 10/27/18 22:30 30 H 121/67 96 10/27/18 22:22 117/69 10/27/18 22:20 30 H 117/69 96 10/27/18 22:10 30 H 124/69 96 10/27/18 22:00 30 H 126/72 95 10/27/18 21:50 30 H 132/70 96 10/27/18 21:40 30 H 143/78 97 10/27/18 21:30 30 H 127/80 96 10/27/18 21:20 30 H 132/70 97 10/27/18 21:13 30 H 140/84 99 10/27/18 21:10 30 H 140/84 98 10/27/18 21:02 30 H 127/72 98 10/27/18 21:00 30 H 147/86 98 10/27/18 20:58 30 H 127/72 96 10/27/18 20:50 30 H 146/82 98 10/27/18 20:40 30 H 121/69 98 10/27/18 20:30 30 H 136/73 99 10/27/18 20:20 30 H 139/84 98 10/27/18 20:10 30 H 146/83 97 10/27/18 20:00 30 H 142/80 98 10/27/18 19:54 25 H 10/27/18 19:50 30 H 149/84 96 10/27/18 19:41 21 158/89 96 10/27/18 19:30 20 142/84 96 10/27/18 19:25 142/84 96 10/27/18 19:20 30 H 139/75 94 10/27/18 19:10 30 H 137/74 95 10/27/18 19:00 30 H 139/85 95 10/27/18 18:50 30 H 141/74 94 10/27/18 18:40 30 H 148/86 97 10/27/18 18:30 30 H 160/85 95 10/27/18 18:20 30 H 159/97 10/27/18 18:10 30 H 152/88 96 10/27/18 18:00 30 H 160/93 96 10/27/18 17:50 30 H 163/96 97 10/27/18 17:40 30 H 163/103 98 10/27/18 17:30 27 H 170/107 97 10/27/18 17:26 99 10/27/18 17:20 30 H 173/110 98 10/27/18 17:10 30 H 171/112 96 10/27/18 17:00 30 H 167/100 95 10/27/18 16:50 19 163/112 95 10/27/18 16:40 30 H 167/99 98 10/27/18 16:30 30 H 182/119 98 10/27/18 16:20 30 H 175/112 98 10/27/18 16:15 33 H 10/27/18 16:10 30 H 170/108 10/27/18 16:00 30 H 165/102 97 10/27/18 15:51 21 140/125 95 10/27/18 15:40 30 H 160/100 96 10/27/18 15:30 30 H 35 H 155/95 96 10/27/18 15:20 23 177/114 97 10/27/18 15:10 18 170/105 96 10/27/18 15:00 22 171/102 96 10/27/18 14:50 29 H 169/106 98 10/27/18 14:40 21 173/107 97 10/27/18 14:30 19 187/109 95 10/27/18 14:21 18 173/107 95 10/27/18 14:11 23 198/121 94 10/27/18 14:00 29 H 213/132 93 10/27/18 13:53 213/132 94 10/27/18 13:50 30 H 205/131 96 10/27/18 13:40 30 H 196/122 92 10/27/18 13:31 25 H 213/136 97 10/27/18 13:21 14 205/159 92 10/27/18 13:11 28 H 240/144 100 10/27/18 13:01 36 H 206/136 97 10/27/18 12:51 28 H 206/136 100 10/27/18 12:41 26 H 186/120 99 10/27/18 12:31 25 H 186/120 93 - Physical Examination General: Other (intubated on the vent) HEENT: Positive: PERRL Cardiac: Positive: Tachycardia Neuro: Positive: Grossly Intact - Labs and Meds Cardiac Enzymes 10/28/18 10/28/18 10/28/18 Range/Units 00:09 03:59 10:05 AST 29 (5-40) units/L CK-MB (CK-2) 6.7 H 7.7 H (0.0-4.0) ng/mL Lipids 10/28/18 Range/Units 00:09 Triglycerides 80 (2-149) mg/dL Cholesterol 151 (50-199) mg/dL HDL Cholesterol 59 (40-59) mg/dL Cholesterol/HDL Ratio 2.55 % CBC 10/28/18 Range/Units 03:59 WBC 11.0 (4.5-11.0) K/mm3 RBC 3.86 (3.65-5.03) M/mm3 Hgb 11.8 (11.8-15.2) gm/dl Hct 36.1 (35.5-45.6) % Plt Count 335 (140-440) K/mm3 Comprehensive Metabolic Panel 10/28/18 Range/Units 03:59 Sodium 140 (137-145) mmol/L Potassium 4.5 (3.6-5.0) mmol/L Chloride 100.5 (98-107) mmol/L Carbon Dioxide 27 D (22-30) mmol/L BUN 31 H (9-20) mg/dL Creatinine 3.0 H (0.8-1.5) mg/dL Glucose 127 H (75-100) mg/dL Calcium 8.9 (8.4-10.2) mg/dL AST 29 (5-40) units/L ALT 25 (7-56) units/L Alkaline Phosphatase 45 (35-129) units/L Total Protein 6.1 L (6.3-8.2) g/dL Albumin 3.2 L (3.9-5) g/dL
[2018-10-28] MEDS ORDERED: SODIUM BICARBONATE FEEDTUBE PRN (13:07)
[2018-10-28] MEDS ORDERED: SIMPLE SYRUP FEEDTUBE PRN ×2 (13:07)
[2018-10-28] MEDS ORDERED: PANCREAZE DR 10,500 UNIT FEEDTUBE PRN (13:07)
[2018-10-28] MEDS: LASIX IV SCH ×4 (15:02→22:32)
[2018-10-28 15:04] LABS: Bacteria,Urine 1+ /HPF (Negative); Bilirubin,Urine NEG (Negative); Blood,Urine NEG (Negative); Color,Urine Yellow (Yellow); Mucus,Urine FEW /HPF; Protein,Urine <15 mg/dL mg/dL (Negative); Urobilinogen,Urine < 2.0 mg/dL (<2.0)
[2018-10-28 15:17] LABS: Chloride, Urine 20.1 mmolL (110-250)
--- NOTE | 2018-10-28 15:47 | Ultrasound Report ---
PROCEDURE: US RENAL BILAT TECHNIQUE: Transverse longitudinal sonograms obtained with michael scale sonography. HISTORY: raghav COMPARISONS: None FINDINGS: Right kidney measures 7.4 x 3.6 x 4.7 cm. Cortex 1.4 cm. Left kidney measures 8.9 x 4.3 x 5 cm. Cortex 1.3 cm. Limited evaluation the kidneys secondary to poor acoustic window Echotexture grossly unremarkable. No calculus. No hydronephrosis. Bladder appears unremarkable. IMPRESSION: Bilateral renal atrophy right greater than left No hydronephrosis. This document is electronically signed by Eusebio Vásquez MD., Oct 28 2018 03:45:15 PM ET
[2018-10-28] MEDS ORDERED: SUBLIMAZE IV ONE (21:00)
--- NOTE | 2018-10-28 21:49 | XRay Report ---
PROCEDURE: XR CHEST 1V AP TECHNIQUE: Chest radiograph single view. HISTORY: possible tube disloge COMPARISONS: October 28, 2018 . FINDINGS: Heart: Moderate degree cardiomegaly is again identified. Mediastinum/Vessels: Normal. Lungs/Pleural space: Left lower lung and left costophrenic angle are obscured by the cardiac shadow. . Right lung and right pleural spaces are clear. Bony thorax: No acute osseous abnormality. Life support devices: Endotracheal tube is terminating 5 cm above the bon. Nasogastric tube is ext ending down into the abdomen and its tip is not included in the study. IMPRESSION: Cardiomegaly Left lower lung and left costophrenic angle are obscured by the cardiac shadow. Any underlying infilt rates or left pleural effusion cannot be excluded. A two-view chest study is recommended whenever the patient's condition permits.. This document is electronically signed by Cuong Dyson MD., Oct 28 2018 09:47:07 PM ET
[2018-10-28] MEDS: PRAVACHOL PO SCH (22:34)
[2018-10-28] MEDS ORDERED: BENADRYL IV PRN (22:49)
[2018-10-29] MEDS: fentaNYL DRIP Premix 2,000 MCG/100 ML BAG IV SCH ×2 (00:36→05:08)
[2018-10-29] MEDS: HumaLOG SUB-Q SCH ×3 (00:39→12:22)
[2018-10-29] MEDS: DUONEB *Not for PRN Use IH SCH ×4 (01:03→21:17)
--- NOTE | 2018-10-29 03:20 | XRay Report ---
PROCEDURE: XR CHEST 1V AP TECHNIQUE: A portable upright view the chest was obtained. HISTORY: follow up respiratory failure COMPARISONS: 10/28/2018 FINDINGS: The heart remains moderately enlarged. The lungs are not overtly congested. There are no infiltrates. The ET tube and NG tube appear in good position. The bones and soft tissues otherwise are unchanged. IMPRESSION: Cardiomegaly.. No infiltrates or effusions.. This document is electronically signed by Aaron Isabel MD., Oct 29 2018 03:18:07 AM ET
[2018-10-29 04:59] LABS: Hematocrit 34.1 % (35.5-45.6); Mean Corpuscular HGB Conc 32 % (32-34); Mean Corpuscular Volume 94 fl (84-94); Platelet Count 340 K/mm3 (140-440); Red Blood Count 3.63 M/mm3 (3.65-5.03)
[2018-10-29] MEDS: LASIX IV SCH ×3 (05:56→21:03)
[2018-10-29] MEDS: PROVENTIL IH PRN (07:12)
[2018-10-29] MEDS: PULMICORT IH SCH ×2 (07:12→21:17)
[2018-10-29] MEDS: MILRINONE-D5W 20 MG/100 ML 20 MG/100 ML BAG IV SCH ×3 (07:14→21:09)
[2018-10-29] MEDS: HEPARIN SUB-Q SCH ×2 (09:43→21:03)
[2018-10-29] MEDS: ASPIRIN PO SCH (09:44)
[2018-10-29] MEDS: APRESOLINE PO SCH ×2 (09:44→21:02)
[2018-10-29] MEDS: LOPRESSOR PO SCH ×2 (09:45→21:02)
[2018-10-29] MEDS: PEPCID PO SCH (09:45)
[2018-10-29] MEDS: ISORDIL TITRADOSE PO SCH ×3 (09:45→20:55)
[2018-10-29] MEDS: LEVAQUIN 750MG/150ML 750 MG/150 ML BAG IV SCH (09:46)
[2018-10-29] MEDS ORDERED: NACL 0.9% 500 ML 500 ML IV PRN (09:55)
--- NOTE | 2018-10-29 10:10 | Progress Note ---
Assessment and Plan Acute hypoxemic respiratory failure. Presumptive diagnosis of acute pulmonary edema. HFrEF (20-25%) Poorly controlled hypertension. Morbid obesity. Acute on chronic kidney injury. - get ABG on SBT; extubate if meets criteria - continue daily SAT's & SBT assessment otherwise (Holding all sedation now) - nephrology consulted re: azotemia - continue empiric Levaquin monotherapy (5 days of empiric treatment) - sedation target for RASS 0 to -1 (off sedation now) - continue bronchodilators with pulmonary hygiene per RT - continue GI & VTE prophylaxis - continue to wean supplemental oxygen to keep O2 sats 88-90% - continue Lung protective strategies - Daily ABGs/CXR for now - VAP bundle addressed - Continue cardioprotective measures - diuresis per nephrologgy at this point (oliguria now noted) - Replete electrolytes as indicated - Tracheal aspirate cultures are negative to date - Monitor renal indices closely - Avoid nephrotoxic agents, adjust all medications for CrCL - Strict intake and output monitoring - Tube feedings as tolerated (holding for tentative extubation) - Aspiration precautions - Accuchecks with glycemic control. Target glucose of 140-180 mg/dL - Maintenance of sleep -wake cycle - Mobility as tolerated by hemodynamics - Influenza and pneumonia vaccination per protocol ..care plan discussed at length with RN/RT at the bedside ..discussed in ICU-IDT rounds PROGNOSIS: GUARDED CONDITION: CRITICAL CODE STATUS: FULL CODE The high probability of a clinically significant, sudden or life-threatening deterioration of the [respiratory, neurology, renal] system(s) required my full and direct attention, intervention and personal management. The aggregate critical care time was [32] minutes without overlap. Time includes spent on; [x] Data Review and interpretation [x] Patient assessment and monitoring of vital signs [x] Documentation [x] Medication orders and management Subjective Date of service: 10/29/18 Principal diagnosis: Ac hypoxemic Resp failure; Acute pulmonary edema; Poorly controlled HTN Interval history: Patient is seen today for: Acute hypoxemic respiratory failure; Presumptive diagnosis of acute pulmonary edema; Poorly controlled hypertension. Seen and examined at bedside; 24hour events reviewed; nursing and respiratory care staff consulted; no adverse overnight events reported to me; remains on MVS; on PSV 10/6 and tolerating well; now making urine; denies acute chest pains or palpitations; Less SOB; no emesis or overt aspiration; remains on milrinone ip Objective Vital Signs - 12hr 10/28/18 10/28/18 10/28/18 22:20 22:30 22:32 Temperature Pulse Rate 119 H 119 H 119 H Pulse Rate [ Anterior Bilateral Throughout] Pulse Rate [ Apical] Pulse Rate [ Posterior Bilateral Throughout] Respiratory 16 13 Rate Respiratory Rate [Anterior Bilateral Throughout] Respiratory Rate [Posterior Bilateral Throughout] Blood Pressure 154/81 152/86 152/86 O2 Sat by Pulse 93 92 Oximetry 10/28/18 10/28/18 10/28/18 22:33 22:40 22:50 Temperature Pulse Rate 119 H 120 H 120 H Pulse Rate [ Anterior Bilateral Throughout] Pulse Rate [ Apical] Pulse Rate [ Posterior Bilateral Throughout] Respiratory 13 15 Rate Respiratory Rate [Anterior Bilateral Throughout] Respiratory Rate [Posterior Bilateral Throughout] Blood Pressure 152/86 157/84 155/82 O2 Sat by Pulse 92 96 Oximetry 10/28/18 10/28/18 10/28/18 23:00 23:10 23:20 Temperature Pulse Rate 118 H 117 H 112 H Pulse Rate [ Anterior Bilateral Throughout] Pulse Rate [ Apical] Pulse Rate [ Posterior Bilateral Throughout] Respiratory 13 13 11 L Rate Respiratory Rate [Anterior Bilateral Throughout] Respiratory Rate [Posterior Bilateral Throughout] Blood Pressure 151/88 149/83 150/86 O2 Sat by Pulse 93 94 95 Oximetry 10/28/18 10/28/18 10/28/18 23:30 23:32 23:40 Temperature Pulse Rate 106 H 107 H 106 H Pulse Rate [ Anterior Bilateral Throughout] Pulse Rate [ Apical] Pulse Rate [ Posterior Bilateral Throughout] Respiratory 14 14 Rate Respiratory Rate [Anterior Bilateral Throughout] Respiratory Rate [Posterior Bilateral Throughout] Blood Pressure 153/89 153/89 138/86 O2 Sat by Pulse 93 99 93 Oximetry 10/28/18 10/29/18 10/29/18 23:50 00:00 00:10 Temperature 99.5 F Pulse Rate 106 H 107 H 108 H Pulse Rate [ Anterior Bilateral Throughout] Pulse Rate [ 107 H Apical] Pulse Rate [ Posterior Bilateral Throughout] Respiratory 14 13 14 Rate Respiratory Rate [Anterior Bilateral Throughout] Respiratory Rate [Posterior Bilateral Throughout] Blood Pressure 151/81 141/84 152/87 O2 Sat by Pulse 93 93 94 Oximetry 10/29/18 10/29/18 10/29/18 00:20 00:30 00:40 Temperature Pulse Rate 109 H 109 H 109 H Pulse Rate [ Anterior Bilateral Throughout] Pulse Rate [ Apical] Pulse Rate [ Posterior Bilateral Throughout] Respiratory 10 L 12 13 Rate Respiratory Rate [Anterior Bilateral Throughout] Respiratory Rate [Posterior Bilateral Throughout] Blood Pressure 149/87 146/86 139/82 O2 Sat by Pulse 93 95 94 Oximetry 10/29/18 10/29/18 10/29/18 00:50 01:00 01:03 Temperature Pulse Rate 108 H 110 H Pulse Rate [ 109 H Anterior Bilateral Throughout] Pulse Rate [ Apical] Pulse Rate [ Posterior Bilateral Throughout] Respiratory 12 15 Rate Respiratory 18 Rate [Anterior Bilateral Throughout] Respiratory Rate [Posterior Bilateral Throughout] Blood Pressure 140/79 150/89 O2 Sat by Pulse 94 97 Oximetry 10/29/18 10/29/18 10/29/18 01:10 01:20 01:30 Temperature Pulse Rate 108 H 110 H 109 H Pulse Rate [ Anterior Bilateral Throughout] Pulse Rate [ Apical] Pulse Rate [ Posterior Bilateral Throughout] Respiratory 16 18 14 Rate Respiratory Rate [Anterior Bilateral Throughout] Respiratory Rate [Posterior Bilateral Throughout] Blood Pressure 138/78 133/86 139/79 O2 Sat by Pulse 95 95 94 Oximetry 10/29/18 10/29/18 10/29/18 01:40 01:50 02:00 Temperature Pulse Rate 108 H 109 H 110 H Pulse Rate [ Anterior Bilateral Throughout] Pulse Rate [ 110 H Apical] Pulse Rate [ Posterior Bilateral Throughout] Respiratory 14 11 L 12 Rate Respiratory Rate [Anterior Bilateral Throughout] Respiratory Rate [Posterior Bilateral Throughout] Blood Pressure 151/83 154/79 132/90 O2 Sat by Pulse 95 94 98 Oximetry 10/29/18 10/29/18 10/29/18 02:10 02:20 02:30 Temperature Pulse Rate 113 H 111 H 109 H Pulse Rate [ Anterior Bilateral Throughout] Pulse Rate [ Apical] Pulse Rate [ Posterior Bilateral Throughout] Respiratory 13 11 L 9 L Rate Respiratory Rate [Anterior Bilateral Throughout] Respiratory Rate [Posterior Bilateral Throughout] Blood Pressure 141/80 134/77 139/79 O2 Sat by Pulse 94 94 96 Oximetry 10/29/18 10/29/18 10/29/18 02:40 02:50 03:00 Temperature Pulse Rate 109 H 110 H 110 H Pulse Rate [ Anterior Bilateral Throughout] Pulse Rate [ Apical] Pulse Rate [ Posterior Bilateral Throughout] Respiratory 12 11 L 12 Rate Respiratory Rate [Anterior Bilateral Throughout] Respiratory Rate [Posterior Bilateral Throughout] Blood Pressure 135/81 155/89 147/78 O2 Sat by Pulse 95 95 97 Oximetry 10/29/18 10/29/18 10/29/18 03:10 03:20 03:30 Temperature Pulse Rate 111 H 110 H 109 H Pulse Rate [ Anterior Bilateral Throughout] Pulse Rate [ Apical] Pulse Rate [ Posterior Bilateral Throughout] Respiratory 12 11 L 14 Rate Respiratory Rate [Anterior Bilateral Throughout] Respiratory Rate [Posterior Bilateral Throughout] Blood Pressure 142/85 130/76 140/96 O2 Sat by Pulse 96 94 95 Oximetry 10/29/18 10/29/18 10/29/18 03:40 03:50 04:00 Temperature 99.7 F H Pulse Rate 112 H 111 H 114 H Pulse Rate [ Anterior Bilateral Throughout] Pulse Rate [ 114 H Apical] Pulse Rate [ Posterior Bilateral Throughout] Respiratory 13 19 15 Rate Respiratory Rate [Anterior Bilateral Throughout] Respiratory Rate [Posterior Bilateral Throughout] Blood Pressure 151/79 144/85 143/76 O2 Sat by Pulse 90 90 93 Oximetry 10/29/18 10/29/18 10/29/18 04:10 04:20 04:30 Temperature Pulse Rate 112 H 112 H 112 H Pulse Rate [ Anterior Bilateral Throughout] Pulse Rate [ Apical] Pulse Rate [ Posterior Bilateral Throughout] Respiratory 17 23 12 Rate Respiratory Rate [Anterior Bilateral Throughout] Respiratory Rate [Posterior Bilateral Throughout] Blood Pressure 142/78 139/85 153/91 O2 Sat by Pulse 91 90 91 Oximetry 10/29/18 10/29/18 10/29/18 04:40 04:50 05:00 Temperature Pulse Rate 111 H 111 H 113 H Pulse Rate [ Anterior Bilateral Throughout] Pulse Rate [ Apical] Pulse Rate [ Posterior Bilateral Throughout] Respiratory 12 12 10 L Rate Respiratory Rate [Anterior Bilateral Throughout] Respiratory Rate [Posterior Bilateral Throughout] Blood Pressure 141/91 144/84 139/116 O2 Sat by Pulse 91 Oximetry 10/29/18 10/29/18 10/29/18 05:10 05:20 05:30 Temperature Pulse Rate 112 H 112 H 112 H Pulse Rate [ Anterior Bilateral Throughout] Pulse Rate [ Apical] Pulse Rate [ Posterior Bilateral Throughout] Respiratory 15 17 14 Rate Respiratory Rate [Anterior Bilateral Throughout] Respiratory Rate [Posterior Bilateral Throughout] Blood Pressure 147/88 140/84 142/82 O2 Sat by Pulse 90 91 91 Oximetry 10/29/18 10/29/18 10/29/18 05:40 05:50 06:00 Temperature Pulse Rate 113 H 114 H 116 H Pulse Rate [ Anterior Bilateral Throughout] Pulse Rate [ Apical] Pulse Rate [ Posterior Bilateral Throughout] Respiratory 18 12 12 Rate Respiratory Rate [Anterior Bilateral Throughout] Respiratory Rate [Posterior Bilateral Throughout] Blood Pressure 144/83 145/88 156/84 O2 Sat by Pulse 91 91 92 Oximetry 10/29/18 10/29/18 10/29/18 06:10 06:20 06:30 Temperature Pulse Rate 115 H 117 H 118 H Pulse Rate [ Anterior Bilateral Throughout] Pulse Rate [ Apical] Pulse Rate [ Posterior Bilateral Throughout] Respiratory 11 L 20 11 L Rate Respiratory Rate [Anterior Bilateral Throughout] Respiratory Rate [Posterior Bilateral Throughout] Blood Pressure 155/89 152/87 154/82 O2 Sat by Pulse 90 90 91 Oximetry 10/29/18 10/29/18 10/29/18 06:40 06:50 07:00 Temperature Pulse Rate 115 H 114 H 112 H Pulse Rate [ Anterior Bilateral Throughout] Pulse Rate [ Apical] Pulse Rate [ Posterior Bilateral Throughout] Respiratory 12 10 L 10 L Rate Respiratory Rate [Anterior Bilateral Throughout] Respiratory Rate [Posterior Bilateral Throughout] Blood Pressure 145/90 132/84 149/83 O2 Sat by Pulse 95 93 92 Oximetry 10/29/18 10/29/18 10/29/18 07:10 07:19 07:20 Temperature Pulse Rate 113 H 111 H Pulse Rate [ 103 H Anterior Bilateral Throughout] Pulse Rate [ Apical] Pulse Rate [ 89 Posterior Bilateral Throughout] Respiratory 11 L 11 L Rate Respiratory 20 Rate [Anterior Bilateral Throughout] Respiratory 20 Rate [Posterior Bilateral Throughout] Blood Pressure 146/85 144/92 O2 Sat by Pulse 91 89 Oximetry 10/29/18 10/29/18 10/29/18 07:30 07:40 07:50 Temperature Pulse Rate 113 H 112 H 118 H Pulse Rate [ Anterior Bilateral Throughout] Pulse Rate [ Apical] Pulse Rate [ Posterior Bilateral Throughout] Respiratory 13 12 22 Rate Respiratory Rate [Anterior Bilateral Throughout] Respiratory Rate [Posterior Bilateral Throughout] Blood Pressure 136/90 150/95 187/97 O2 Sat by Pulse 89 91 93 Oximetry 10/29/18 10/29/18 10/29/18 08:00 08:11 08:21 Temperature 98.4 F Pulse Rate 116 H 117 H 117 H Pulse Rate [ Anterior Bilateral Throughout] Pulse Rate [ Apical] Pulse Rate [ Posterior Bilateral Throughout] Respiratory 15 12 12 Rate Respiratory Rate [Anterior Bilateral Throughout] Respiratory Rate [Posterior Bilateral Throughout] Blood Pressure 166/88 163/90 161/100 O2 Sat by Pulse 94 94 95 Oximetry 10/29/18 10/29/18 10/29/18 08:30 09:44 09:45 Temperature Pulse Rate 117 H 119 H 119 H Pulse Rate [ Anterior Bilateral Throughout] Pulse Rate [ Apical] Pulse Rate [ Posterior Bilateral Throughout] Respiratory 11 L Rate Respiratory Rate [Anterior Bilateral Throughout] Respiratory Rate [Posterior Bilateral Throughout] Blood Pressure 146/85 169/102 158/92 O2 Sat by Pulse 91 Oximetry Constitutional: no acute distress, alert, other (middle aged obese AAM, normocephalic and atraumatic) Eyes: non-icteric ENT: oropharynx moist, other (ETT 24 cm LATOSHA) Neck: supple, no lymphadenopathy, no JVD, other (large neck circumference) Effort: mildly labored Ascultation: Bilateral: rales (improved) Percussion: Bilateral: not dull Cardiovascular: regular rate and rhythm Gastrointestinal: normoactive bowel sounds, soft, non-tender, non-distended Integumentary: normal Extremities: no cyanosis, pulses normal, no ischemia or petechiae, edema (1+) Neurologic: normal mental status, non-focal exam, pupils equal and round, CN II- XII normal, motor strength normal and Psychiatric: mood appropriate, affect normal CBC and BMP: 10/29/18 03:59 10/28/18 03:59 ABG, PT/INR, D-dimer: ABG POC ABG pH 7.276 (7.35-7.45) L 10/29/18 03:37 POC ABG pCO2 63.5 (35-45) H 10/29/18 03:37 POC ABG pO2 119 (80-105) H 10/29/18 03:37 POC ABG HCO3 29.6 (22-26 mml/L) 10/29/18 03:37 POC ABG Total CO2 31 (23-27mmol/L) 10/29/18 03:37 POC ABG O2 Sat 98 10/29/18 03:37 PT/INR, D-dimer 679.01 ng/mlDDU (0-234) H 10/27/18 14:34 Abnormal lab findings: Abnormal Labs 10/26/18 10/26/1819 18:21 18:21 22:56 WBC RBC Hgb 11.7 L Hct RDW 17.0 H D-Dimer POC ABG pH POC ABG pCO2 POC ABG pO2 Carbon Dioxide BUN 21 H Creatinine 2.4 H Glucose 106 H POC Glucose Total Creatine Kinase 287 H CK-MB (CK-2) Troponin T C-Reactive Protein NT-Pro-B Natriuret Pep 8302 H Total Protein 5.6 L Albumin 2.9 L Urine Creatinine Urine Chloride 10/27/18 10/27/18 10/27/18 02:58 03:00 03:00 WBC 12.6 H RBC Hgb Hct RDW 16.5 H D-Dimer POC ABG pH 7.301 L POC ABG pCO2 45.9 H POC ABG pO2 Carbon Dioxide 20 L BUN 21 H Creatinine 2.6 H Glucose 215 H POC Glucose Total Creatine Kinase CK-MB (CK-2) Troponin T C-Reactive Protein NT-Pro-B Natriuret Pep Total Protein Albumin Urine Creatinine Urine Chloride 10/27/18 10/27/18 10/27/18 12:04 14:34 14:34 WBC RBC Hgb Hct RDW D-Dimer 679.01 H POC ABG pH POC ABG pCO2 POC ABG pO2 Carbon Dioxide BUN Creatinine Glucose POC Glucose 124 H Total Creatine Kinase CK-MB (CK-2) Troponin T C-Reactive Protein 4.30 H NT-Pro-B Natriuret Pep Total Protein Albumin Urine Creatinine Urine Chloride 10/27/18 10/27/18 10/27/18 15:30 17:52 18:30 WBC RBC Hgb Hct RDW D-Dimer POC ABG pH 7.336 L POC ABG pCO2 50.7 H POC ABG pO2 Carbon Dioxide BUN Creatinine Glucose POC Glucose 123 H 125 H Total Creatine Kinase CK-MB (CK-2) Troponin T C-Reactive Protein NT-Pro-B Natriuret Pep Total Protein Albumin Urine Creatinine Urine Chloride 10/27/18 10/28/18 10/28/18 23:52 00:09 03:38 WBC RBC Hgb Hct RDW D-Dimer POC ABG pH POC ABG pCO2 51.3 H POC ABG pO2 Carbon Dioxide BUN Creatinine Glucose POC Glucose 113 H Total Creatine Kinase 229 H CK-MB (CK-2) 6.7 H Troponin T 0.065 H C-Reactive Protein NT-Pro-B Natriuret Pep Total Protein Albumin Urine Creatinine Urine Chloride 10/28/18 10/28/18 10/28/18 03:59 03:59 06:39 WBC RBC Hgb Hct RDW 16.8 H D-Dimer POC ABG pH POC ABG pCO2 POC ABG pO2 Carbon Dioxide BUN 31 H Creatinine 3.0 H Glucose 127 H POC Glucose 109 H Total Creatine Kinase CK-MB (CK-2) Troponin T C-Reactive Protein NT-Pro-B Natriuret Pep Total Protein 6.1 L Albumin 3.2 L Urine Creatinine Urine Chloride 10/28/18 10/28/18 10/28/18 10:05 11:11 13:37 WBC RBC Hgb Hct RDW D-Dimer POC ABG pH POC ABG pCO2 POC ABG pO2 Carbon Dioxide BUN Creatinine Glucose POC Glucose 111 H Total Creatine Kinase 215 H CK-MB (CK-2) 7.7 H Troponin T 0.122 H* D C-Reactive Protein NT-Pro-B Natriuret Pep Total Protein Albumin Urine Creatinine 241.0 H Urine Chloride 20.1 L 10/28/18 10/29/18 10/29/18 17:13 03:37 03:59 WBC 12.4 H RBC 3.63 L Hgb 11.0 L Hct 34.1 L RDW 17.0 H D-Dimer POC ABG pH 7.319 L 7.276 L POC ABG pCO2 55.8 H 63.5 H POC ABG pO2 113 H 119 H Carbon Dioxide BUN Creatinine Glucose POC Glucose Total Creatine Kinase CK-MB (CK-2) Troponin T C-Reactive Protein NT-Pro-B Natriuret Pep Total Protein Albumin Urine Creatinine Urine Chloride Chest x-ray: image reviewed Allied health notes reviewed: nursing
--- NOTE | 2018-10-29 11:46 | Progress Note ---
Assessment and Plan Decompensated systolic heart failure EF 20-25% by echo this admission Chronic renal failure Respiratory failure Hypertension Continue aggressive medial therapy for systolic heart failure to include a trial of IV milrinone. IV diuretic management per Nephrology. Further cardiac evaluation with a persantine stress thallium before discharge. Subjective Date of service: 10/29/18 Principal diagnosis: Ac hypoxemic Resp failure; Acute pulmonary edema; Poorly controlled HTN Interval history: Patient is alert, but remains intubated. Still with significant lower extremity edema. IV milrinone continues. Objective Vital Signs Temp Pulse Pulse Pulse Pulse Resp Resp 10/29/18 10:25 100 H 10/29/18 10:21 99 H 11 L 10/29/18 10:11 104 H 13 10/29/18 10:00 111 H 17 10/29/18 09:51 118 H 11 L 10/29/18 09:45 119 H 10/29/18 09:44 119 H 10/29/18 09:41 117 H 16 10/29/18 09:30 116 H 13 10/29/18 09:21 115 H 14 10/29/18 09:11 114 H 14 10/29/18 09:00 115 H 13 10/29/18 08:51 116 H 15 10/29/18 08:41 116 H 11 L 10/29/18 08:30 117 H 11 L 10/29/18 08:21 117 H 12 10/29/18 08:11 117 H 12 10/29/18 08:00 98.4 F 116 H 15 10/29/18 07:50 118 H 22 10/29/18 07:40 112 H 12 10/29/18 07:30 113 H 13 10/29/18 07:20 111 H 11 L 10/29/18 07:19 103 H 89 20 10/29/18 07:10 113 H 11 L 10/29/18 07:00 112 H 10 L 10/29/18 06:50 114 H 10 L 10/29/18 06:40 115 H 12 10/29/18 06:30 118 H 11 L 10/29/18 06:20 117 H 20 10/29/18 06:10 115 H 11 L 10/29/18 06:00 116 H 12 10/29/18 05:50 114 H 12 10/29/18 05:40 113 H 18 10/29/18 05:30 112 H 14 10/29/18 05:20 112 H 17 10/29/18 05:10 112 H 15 10/29/18 05:00 113 H 10 L 10/29/18 04:50 111 H 12 10/29/18 04:40 111 H 12 10/29/18 04:30 112 H 12 10/29/18 04:20 112 H 23 10/29/18 04:10 112 H 17 10/29/18 04:00 99.7 F H 114 H 114 H 15 10/29/18 03:50 111 H 19 10/29/18 03:40 112 H 13 10/29/18 03:30 109 H 14 10/29/18 03:20 110 H 11 L 10/29/18 03:10 111 H 12 10/29/18 03:00 110 H 12 10/29/18 02:50 110 H 11 L 10/29/18 02:40 109 H 12 10/29/18 02:30 109 H 9 L 10/29/18 02:20 111 H 11 L 10/29/18 02:10 113 H 13 10/29/18 02:00 110 H 110 H 12 10/29/18 01:50 109 H 11 L 10/29/18 01:40 108 H 14 10/29/18 01:30 109 H 14 10/29/18 01:20 110 H 18 10/29/18 01:10 108 H 16 10/29/18 01:03 109 H 18 10/29/18 01:00 110 H 15 10/29/18 00:50 108 H 12 10/29/18 00:40 109 H 13 10/29/18 00:30 109 H 12 10/29/18 00:20 109 H 10 L 10/29/18 00:10 108 H 14 10/29/18 00:00 99.5 F 107 H 107 H 13 10/28/18 23:50 106 H 14 10/28/18 23:40 106 H 14 10/28/18 23:32 107 H 10/28/18 23:30 106 H 14 10/28/18 23:20 112 H 11 L 10/28/18 23:10 117 H 13 10/28/18 23:00 118 H 13 10/28/18 22:50 120 H 15 10/28/18 22:40 120 H 13 10/28/18 22:33 119 H 10/28/18 22:32 119 H 10/28/18 22:30 119 H 13 10/28/18 22:20 119 H 16 10/28/18 22:10 117 H 15 10/28/18 22:00 120 H 120 H 15 10/28/18 21:51 120 H 14 10/28/18 21:40 120 H 17 10/28/18 21:30 118 H 15 10/28/18 21:20 122 H 14 10/28/18 21:11 122 H 13 10/28/18 21:00 125 H 19 10/28/18 20:50 121 H 15 10/28/18 20:40 119 H 14 10/28/18 20:31 120 H 15 10/28/18 20:21 127 H 15 10/28/18 20:11 139 H 19 10/28/18 20:01 120 H 21 10/28/18 20:00 99.6 F 120 H 21 10/28/18 19:50 137 H 21 10/28/18 19:48 135 H 20 10/28/18 19:30 120 H 24 10/28/18 19:20 118 H 18 10/28/18 19:10 117 H 19 10/28/18 19:02 117 H 19 10/28/18 19:00 117 H 21 10/28/18 18:58 118 H 16 10/28/18 18:50 121 H 17 10/28/18 18:40 116 H 21 10/28/18 18:30 115 H 18 10/28/18 18:21 123 H 15 10/28/18 18:10 115 H 21 10/28/18 18:00 112 H 12 10/28/18 17:50 110 H 14 10/28/18 17:40 111 H 13 10/28/18 17:30 109 H 15 10/28/18 17:21 119 H 22 10/28/18 17:10 109 H 17 10/28/18 17:00 110 H 16 10/28/18 16:50 110 H 15 10/28/18 16:40 109 H 15 10/28/18 16:30 111 H 15 10/28/18 16:20 109 H 16 10/28/18 16:10 110 H 14 10/28/18 16:00 98.2 F 109 H 112 H 18 10/28/18 15:51 117 H 12 10/28/18 15:43 108 H 16 10/28/18 15:40 106 H 14 10/28/18 15:30 107 H 16 10/28/18 15:20 108 H 13 10/28/18 15:10 108 H 20 10/28/18 15:06 107 H 10/28/18 15:00 109 H 16 10/28/18 14:52 105 H 21 10/28/18 14:50 108 H 19 10/28/18 14:40 110 H 18 10/28/18 14:30 109 H 18 10/28/18 14:20 107 H 21 10/28/18 14:10 110 H 19 10/28/18 14:05 109 H 25 H 10/28/18 14:00 108 H 20 10/28/18 13:50 108 H 19 10/28/18 13:40 108 H 15 10/28/18 13:30 107 H 16 10/28/18 13:20 10/28/18 13:10 10/28/18 13:00 106 H 21 10/28/18 12:50 106 H 16 10/28/18 12:40 108 H 17 10/28/18 12:30 108 H 21 10/28/18 12:20 109 H 13 10/28/18 12:10 107 H 14 10/28/18 12:00 98.3 F 109 H 109 H 13 10/28/18 11:51 110 H 17 10/28/18 11:47 111 H Resp BP Pulse Ox 10/29/18 10:25 10/29/18 10:21 155/91 96 10/29/18 10:11 171/103 97 10/29/18 10:00 171/103 89 10/29/18 09:51 158/92 98 10/29/18 09:45 158/92 10/29/18 09:44 169/102 10/29/18 09:41 169/102 98 10/29/18 09:30 169/102 92 10/29/18 09:21 165/92 97 10/29/18 09:11 162/97 96 10/29/18 09:00 162/97 91 10/29/18 08:51 156/83 97 10/29/18 08:41 146/85 99 05 08:30 146/85 91 0508 08:21 161/100 95 0508 08:11 163/90 94 08 08:00 166/88 94 0508 07:50 187/97 93 0508 07:40 150/95 91 0508 07:30 136/90 89 08 07:20 144/92 89 0508 07:19 20 10/29/18 07:10 146/85 91 10/29/18 07:00 149/83 92 10/29/18 06:50 132/84 93 10/29/18 06:40 145/90 95 10/29/18 06:30 154/82 91 08 06:20 152/87 90 10/29/18 06:10 155/89 90 10/29/18 06:00 156/84 92 10/29/18 05:50 145/88 91 10/29/18 05:40 144/83 91 10/29/18 05:30 142/82 91 10/29/18 05:20 140/84 91 10/29/18 05:10 147/88 90 10/29/18 05:00 139/116 10/29/18 04:50 144/84 91 10/29/18 04:40 141/91 05 04:30 153/91 91 10/29/18 04:20 139/85 90 08 04:10 142/78 91 08 04:00 143/76 93 08 03:50 144/85 90 08 03:40 151/79 90 0508 03:30 140/96 95 08 03:20 130/76 94 08 03:10 142/85 96 08 03:00 147/78 97 08 02:50 155/89 95 0508 02:40 135/81 95 08 02:30 139/79 96 08 02:20 134/77 94 08 02:10 141/80 94 08 02:00 132/90 98 10/29/18 01:50 154/79 94 10/29/18 01:40 151/83 95 0508 01:30 139/79 94 0508 01:20 133/86 95 0508 01:10 138/78 95 0508 01:03 10/29/18 01:00 150/89 97 10/29/18 00:50 140/79 94 08 00:40 139/82 94 08 00:30 146/86 95 08 00:20 149/87 93 0508 00:10 152/87 94 10/29/18 00:00 141/84 93 10/28/18 23:50 151/81 93 10/28/18 23:40 138/86 93 10/28/18 23:32 153/89 99 05 23:30 153/89 93 10/28/18 23:20 150/86 95 07 23:10 149/83 94 10/28/18 23:00 151/88 93 10/28/18 22:50 155/82 96 0507 22:40 157/84 92 10/28/18 22:33 152/86 05 22:32 152/86 10/28/18 22:30 152/86 92 07 22:20 154/81 93 0507 22:10 138/81 91 10/28/18 22:00 177/75 94 0507 21:51 158/78 96 07 21:40 147/82 92 07 21:30 153/83 91 07 21:20 141/86 95 0507 21:11 121/80 95 0507 21:00 121/76 98 0507 20:50 127/77 92 07 20:40 123/78 95 0507 20:31 150/66 93 0507 20:21 86/56 99 0507 20:11 182/122 94 10/28/18 20:01 141/70 92 0507 20:00 92 10/28/18 19:50 159/102 95 0507 19:48 0507/19 19:30 144/77 93 05/07/19 19:20 119/78 93 05/07/19 19:10 122/82 92 05/07/19 19:02 05/07/ 19:00 134/80 95 05/07/19 18:58 152/72 99 05/07/19 18:50 132/87 93 05/07/19 18:40 126/74 91 05/07/19 18:30 135/73 100 05/07/19 18:21 142/74 97 05/07/ 18:10 134/77 95 05/07/19 18:00 113/66 94 05/07/ 17:50 118/63 94 05/07/ 17:40 108/69 92 05/07/ 17:30 118/74 92 05/07/ 17:21 135/80 98 0507/ 17:10 118/76 94 0507/ 17:00 124/69 95 05/07/19 16:50 123/66 96 05/07/ 16:40 118/70 96 05/07/19 16:30 123/70 95 05/07/19 16:20 112/72 96 0507/ 16:10 117/68 94 05/07/ 16:00 110/64 99 05/07/ 15:51 131/78 92 0507/ 15:43 109/61 99 05/07/19 15:40 113/59 94 05/07/19 15:30 114/63 94 05/07/19 15:20 113/55 92 05/07/ 15:10 122/61 95 05/07/19 15:06 120/58 05/07/19 15:00 120/58 95 05/07/19 14:52 0507/ 14:50 115/60 96 05/07/19 14:40 117/58 94 05/07/19 14:30 112/60 94 05/07/19 14:20 119/62 95 05/07/ 14:10 136/64 93 05/07/ 14:05 05/07/ 14:00 112/58 94 05/07/19 13:50 110/63 95 05/07/19 13:40 113/61 94 05/07/19 13:30 114/57 97 05/07/ 13:20 110/58 93 10/28/18 13:10 115/54 100 10/28/18 13:00 123/65 94 10/28/18 12:50 116/58 95 10/28/18 12:40 115/59 94 10/28/18 12:30 110/65 95 10/28/18 12:20 119/63 96 10/28/18 12:10 120/67 94 10/28/18 12:00 122/66 95 10/28/18 11:51 116/70 93 10/28/18 11:47 116/70 99 - Physical Examination General: Other (intubated on CPAP) HEENT: Positive: PERRL Neck: Positive: trachea midline Cardiac: Positive: Reg Rate and Rhythm Neuro: Positive: Grossly Intact Extremities: Present: edema - Labs and Meds CBC 10/29/18 Range/Units 03:59 WBC 12.4 H (4.5-11.0) K/mm3 RBC 3.63 L (3.65-5.03) M/mm3 Hgb 11.0 L (11.8-15.2) gm/dl Hct 34.1 L (35.5-45.6) % Plt Count 340 (140-440) K/mm3 - Allied health notes Allied health notes reviewed: nursing
--- NOTE | 2018-10-29 14:29 | Progress Note ---
Assessment and Plan Assessment and plan: Patient is a 43 yo man with a history of hypertension, asthma, morbid obesity, cardiomyopathy and CKD who presented to [facility] ED on 10/26/18 with sob, leg swelling. He was started on BIPAP and admitted for CHF to the ICU -Acute on chronic systolic heart failure, EF est 20-25%: continue to diuresis, Cardiology is following, stopped IV steroids, -Acute hypoxic respiratory failure, it appears he failed Bipap and required Intubation, details are not readily available to me at this time: plan is to try to extubate with daily weaning attempts, Pulmonology is following. -Acute on chronic kidney failure, stage 3, Cardiorenal, atn +vasomotor, poa: treat the CHF, Nephrology consulted -Morbid Obesity, bmi 41.3: [employer] to follow -Suspected Right Perihilar Pneumonia: on Abx -Hypertensive heart disease: monitor salt intake, daily weights and i/o, treat with antihypertensives -DVT/GI prophylaxis reviewed Full code Restraints renewed CCT 32 minutes History Interval history: Patient was seen and examined. Follow-up on current diagnosis of CHF and respiratory failure. No overnight events reported to me. Imaging, nursing note, chart, labs and old chart reviewed. Hospitalist Physical - Physical exam Narrative exam: Gen: morbid obese bmi 41.3, ill appearing, intubated and sedated HEENT: NCAT, EOMI, PERRL, OP ETT in place Neck: supple, no adenopathy, no thyromegaly, equivocal JVD CVS/Heart: Regular tachy, normal S1S2, pulses present bilaterally Chest/Lungs: tachypneic, diminished bs bilateral, Symmetrical chest expansion, good air entry bilaterally GI/Abdomen: soft, NTND, good bowel sounds, no guarding or rebound /Bladder: no suprapubic tenderness, no CVA or paraspinal tenderness Extermity/Skin: ble edema MSK: sedated Neuro: sedated Psych: sedated - Constitutional Vitals: Temp Pulse Resp BP Pulse Ox 98.1 F 101 H 17 133/82 98 10/29/18 12:00 10/29/18 14:22 10/29/18 14:22 10/29/18 13:20 10/29/18 13:20 General appearance: Absent: mild distress Results - Labs CBC & Chem 7: 10/29/18 03:59 10/28/18 03:59 Labs: Laboratory Last Values WBC 12.4 K/mm3 (4.5-11.0) H 10/29/18 03:59 RBC 3.63 M/mm3 (3.65-5.03) L 10/29/18 03:59 Hgb 11.0 gm/dl (11.8-15.2) L 10/29/18 03:59 Hct 34.1 % (35.5-45.6) L 10/29/18 03:59 MCV 94 fl (84-94) 10/29/18 03:59 MCH 30 pg (28-32) 10/29/18 03:59 MCHC 32 % (32-34) 10/29/18 03:59 RDW 17.0 % (13.2-15.2) H 10/29/18 03:59 Plt Count 340 K/mm3 (140-440) 10/29/18 03:59 679.01 ng/mlDDU (0-234) H 10/27/18 14:34 POC ABG pH 7.342 (7.35-7.45) L 10/29/18 12:32 POC ABG pCO2 53.3 (35-45) H 10/29/18 12:32 POC ABG pO2 109 (80-105) H 10/29/18 12:32 POC ABG HCO3 28.8 (22-26 mml/L) 10/29/18 12:32 POC ABG Total CO2 30 (23-27mmol/L) 10/29/18 12:32 POC ABG O2 Sat 98 10/29/18 12:32 POC ABG Base Excess 3 ((-2) - (+3)mmol/L) 10/29/18 12:32 30 % 10/29/18 12:32 Sodium 140 mmol/L (137-145) 10/28/18 03:59 Potassium 4.5 mmol/L (3.6-5.0) 10/28/18 03:59 Chloride 100.5 mmol/L (98-107) 10/28/18 03:59 Carbon Dioxide 27 mmol/L (22-30) D 10/28/18 03:59 17 mmol/L 10/28/18 03:59 BUN 31 mg/dL (9-20) H 10/28/18 03:59 3.0 mg/dL (0.8-1.5) H 10/28/18 03:59 Estimated GFR 28 ml/min 10/28/18 03:59 10 % 10/28/18 03:59 Glucose 127 mg/dL (75-100) H 10/28/18 03:59 POC Glucose 91 (70-105) 10/29/18 12:07 Lactic Acid 0.80 mmol/L (0.7-2.0) 10/26/18 22:56 Calcium 8.9 mg/dL (8.4-10.2) 10/28/18 03:59 Magnesium 2.10 mg/dL (1.7-2.3) 10/29/18 03:59 0.40 mg/dL (0.1-1.2) 10/28/18 03:59 AST 29 units/L (5-40) 10/28/18 03:59 ALT 25 units/L (7-56) 10/28/18 03:59 45 units/L (35-129) 10/28/18 03:59 215 units/L (55-170) H 10/28/18 10:05 CK-MB (CK-2) 7.7 ng/mL (0.0-4.0) H 10/28/18 10:05 CK-MB (CK-2) Rel Index 3.5 (0-4) 10/28/18 10:05 0.122 ng/mL (0.00-0.029) H* D 10/28/18 10:05 4.30 mg/dL (0.00-1.30) H 10/27/18 14:34 NT-Pro-B Natriuret Pep 8302 pg/mL (0-450) H 10/26/18 18:21 6.1 g/dL (6.3-8.2) L 10/28/18 03:59 3.2 g/dL (3.9-5) L 10/28/18 03:59 1.1 % 10/28/18 03:59 Triglycerides 80 mg/dL (2-149) 10/28/18 00:09 Cholesterol 151 mg/dL (50-199) 10/28/18 00:09 80 mg/dL (50-130) 10/28/18 00:09 59 mg/dL (40-59) 10/28/18 00:09 2.55 % 10/28/18 00:09 Yellow (Yellow) 10/28/18 08:43 Slightly-cloudy (Clear) 10/28/18 08:43 5.0 (5.0-7.0) 10/28/18 08:43 Ur Specific [place] 1.014 (1.003-1.030) 10/28/18 08:43 <15 mg/dl mg/dL (Negative) 10/28/18 08:43 Neg mg/dL (Negative) 10/28/18 08:43 Neg mg/dL (Negative) 10/28/18 08:43 Neg (Negative) 10/28/18 08:43 Neg (Negative) 10/28/18 08:43 Neg (Negative) 10/28/18 08:43 < 2.0 mg/dL (<2.0) 10/28/18 08:43 Ur Leukocyte Esterase Neg (Negative) 10/28/18 08:43 2.0 /HPF (0.0-6.0) 10/28/18 08:43 2.0 /HPF (0.0-6.0) 10/28/18 08:43 1+ /HPF (Negative) 10/28/18 08:43 Few /HPF 10/28/18 08:43 241.0 mg/dL (0.1-20.0) H 10/28/18 13:37 21 mmol/L 10/28/18 13:37 20.1 mmolL (110-250) L 10/28/18 13:37 Active Medications - Current Medications Current Medications: Generic Name Dose Route Start Last Admin Trade Name Freq PRN Reason Stop Dose Admin Albuterol 2.5 mg 10/27/18 08:00 10/29/18 07:12 Proventil IH 2.5 mg Q6HRT PRN Administration Shortness Of Breath Albuterol/Ipratropium 1 ampul 10/27/18 02:00 10/29/18 14:22 Duoneb *Not For Prn Use* IH 1 ampul Q6HRT FAYE Administration Lipase/Protease/Amylase 1 each 10/28/18 13:07 Pancrerhianna Baez 10,500 Unit FEEDTUBE PRN PRN For Clogged Feeding Tube Aspirin 325 mg 10/27/18 10:00 10/29/18 09:44 Aspirin PO 325 mg QDAY FAYE Administration Budesonide 0.5 mg 10/27/18 08:00 10/29/18 07:12 Pulmicort IH 0.5 mg Q12HRT FAYE Administration Diphenhydramine HCl 25 mg 10/28/18 22:49 10/28/18 23:05 Benadryl IV 25 mg Q6H PRN Administration Itching Famotidine 20 mg 10/29/18 10:00 10/29/18 09:45 Pepcid PO 20 mg DAILY FAYE Administration Fentanyl 50 mcg 10/27/18 13:07 10/29/18 07:56 Sublimaze IV 50 mcg Q10MIN PRN Administration ANALGESIA Furosemide 40 mg 10/27/18 14:00 10/29/18 13:23 Lasix IV 40 mg Q8H FAYE Administration Heparin Sodium (Porcine) 5,000 unit 10/27/18 22:00 10/29/18 09:43 Heparin SUB-Q 5,000 unit BID FAYE Administration Hydralazine HCl 50 mg 10/27/18 02:30 10/29/18 09:44 Apresoline PO 50 mg Q12HR FAYE Administration Hydralazine HCl 10 mg 10/27/18 02:33 Apresoline IV Q4H PRN sb/p >150 Hydrophilic Ointment 1 applic 10/27/18 13:07 Vaseline Lip Therapy TP Q2HR PRN Dry Lips Levofloxacin/Dextrose 750 mg in 150 mls @ 100 mls/hr 10/29/18 10:00 10/29/18 09:46 Levaquin 750mg/150ml IV 11/06/18 11:29 100 mls/hr Q48HR FAYE Administration Protocol Fentanyl Citrate 2,000 mcg in 100 mls @ 7.485 mls/hr 10/27/18 14:00 10/29/18 11:48 Fentanyl Drip Premix IV 0 mcg/kg/hr TITR FAYE 0 mls/hr Titration Protocol 1 MCG/KG/HR Propofol 1,000 mg in 100 mls @ 4.491 mls/hr 10/27/18 14:00 10/28/18 08:35 Diprivan 10 Mg/Ml IV 0 mcg/kg/min TITR FAYE 0 mls/hr Titration Protocol 5 MCG/KG/MIN Milrinone Lactate/Dextrose 20 mg in 100 mls @ 16.841 mls/hr 10/27/18 15:00 10/29/18 07:14 Milrinone-D5w 20 Mg/100 Ml IV 10/30/18 14:59 0.375 mcg/kg/min TITR FAYE 16.841 mls/hr Administration 0.375 MCG/KG/MIN Sodium Chloride 500 mls @ 10 mls/hr 10/29/18 09:55 10/29/18 10:08 Nacl 0.9% 500 Ml IV 10 mls/hr PRN PRN Administration FOR IV ANTIBIOTICS Insulin Human Lispro 0 unit 10/27/18 13:00 10/29/18 12:22 Humalog SUB-Q Not Given Q6HR [facility] Protocol Isosorbide Dinitrate 10 mg 10/27/18 08:00 10/29/18 13:20 Isordil Titradose PO 10 mg TID FAYE Administration Metoprolol Tartrate 50 mg 10/27/18 10:00 10/29/18 09:45 Lopressor PO 50 mg BID [facility] Administration Midazolam HCl 2 mg 10/27/18 13:38 Versed IV Q1H PRN Agitation Multi-Ingred Cream/Lotion/Oil/Oint 1 applic 10/27/18 13:07 Artificial Tears Ophth Oint OU Q4HR PRN Dry Eye(s) Pravastatin Sodium 40 mg 10/27/18 22:00 10/28/18 22:34 Pravachol PO 40 mg QHS FAYE Administration Simple Syrup 15 ml 10/28/18 13:07 Simple Syrup FEEDTUBE PRN PRN Hypoglycemia Simple Syrup 30 ml 10/28/18 13:07 Simple Syrup FEEDTUBE PRN PRN Hypoglycemia Sodium Bicarbonate 325 mg 10/28/18 13:07 Sodium Bicarbonate FEEDTUBE PRN PRN For Clogged Feeding Tube Nutrition/Malnutrition Assess - Dietary Evaluation Nutrition/Malnutrition Findings: Nutrition Notes Start: 10/28/18 08:24 Freq: Status: Active Protocol: Document 10/28/18 08:24 CP (Rec: 10/28/18 08:53 CP [id number]) Co-Sign 10/28/18 08:24 LP Nutrition Notes Need for Assessment generated from: MD Order Initial or Follow up Assessment Current Diagnosis Hypertension,Heart Failure Other Pertinent Diagnosis Asthma, dyspnea Current Diet NPO Labs/Tests POC Glu: 109 Pertinent Medications Lasix Insulin Propofol Height 6 ft 3 in Weight 149.7 kg [place] Body Weight (kg) 89.09 BMI 41.2 Weight Status Morbidly Obese Subjective/Other Information MD consult for TF and to evaluate NTR intake. Noted that the pt is on the vent/NPO during time of visit. Percent of energy/protein needs met: 0%/0% Burn Absent Trauma Absent #1 Nutrition Diagnosis Inadequate oral intake Etiology Mechanical Vent As Evidenced by Signs and Symptoms TF consult Is patient on ventilator? Yes Is Patient Ambulatory and/or Out of Bed No REE-([facility]-confined to bed) 2975.484 Kcal/Kg value to use for calculation 15 Approximate Energy Requirements Using 2246 kcal/Kg Calculation Used for Recommendations Kcal/kg Additional Notes Pro: 178-196g/day (2-2.2g/kg IBW) Fluid: 1mL/kcal or per MD request Nutrition Intervention Change Diet Order: TF Nutrition Support: Vital AF 1.2 at 80 mL/kcal Water flush 100 q4h. Kcal 2,304 Protein (gm) 144 Fluid (mL) 1,557 Goal #1 TF to start Goal #2 TF tolerance once TF is started Anticipated Discharge Needs: Unable to determine at this time Follow-Up By: 10/30/18 Additional Comments F/U: TF to start/ TF tolerance
--- NOTE | 2018-10-29 16:42 | Progress Note ---
Assessment and Plan - Patient Problems (1) Acute and chronic respiratory failure with hypoxia Current Visit: Yes Status: Acute Plan to address problem: Status post extubation. 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 (2) Acute on chronic systolic heart failure Current Visit: Yes Status: Acute Plan to address problem: Continue diuresis. Milrinone per Aesthetician. Follow up intake and output and monitor electrolytes and function (3) Cardiorenal syndrome with renal failure Current Visit: Yes Status: Acute Plan to address problem: Acute kidney injury acute cardiorenal syndrome. Kidney function pending today. Follow up renal function and electrolytes on diuretics (4) Hypertensive chronic kidney disease with stage 1 through stage 4 chronic kidney disease, or unspecified chronic kidney disease Current Visit: Yes Status: Acute Plan to address problem: Blood pressure is improving. Follow blood pressure and current medications (5) Noncompliance with medication regimen Current Visit: No Status: Acute Plan to address problem: Account Assistant patient more about the importance of adherence to treatment plan before discharge Subjective Date of service: 10/29/18 Principal diagnosis: Ac hypoxemic Resp failure; Acute pulmonary edema; Poorly controlled HTN Interval history: Patient seen lying in bed. He was extubated earlier today. He is on BiPAP. Complains of being hungry. He denies pain or nausea. Objective - Exam Narrative Exam: Middle-age -[place] male lying in bed on BiPAP HEENT: NCAT, pink oral mucous membrane Neck: Supple, no venous distention CVS: S1S2 RRR with no murmur, rub or gallop Chest: Breath sounds are diminished in bases Abdomen: Protuberant, soft, nontender, no organomegaly, bowel sounds are present Extremities: 2+ edema extending to the thighs and abdominal wall Genitourinary deferred hopkins draining clear urine Skin warm and dry Neuro: Awake, alert no focal deficits - Vital Signs Vital signs: Vital Signs - 12hr 10/29/18 10/29/18 10/29/18 04:40 04:50 05:00 Temperature Pulse Rate 111 H 111 H 113 H Pulse Rate [ Anterior Bilateral Throughout] Pulse Rate [ From Monitor] Pulse Rate [ Posterior Bilateral Throughout] Respiratory 12 12 10 L Rate Respiratory Rate [Anterior Bilateral Throughout] Respiratory Rate [Posterior Bilateral Throughout] Blood Pressure 141/91 144/84 139/116 O2 Sat by Pulse 91 Oximetry 10/29/18 10/29/18 10/29/18 05:10 05:20 05:30 Temperature Pulse Rate 112 H 112 H 112 H Pulse Rate [ Anterior Bilateral Throughout] Pulse Rate [ From Monitor] Pulse Rate [ Posterior Bilateral Throughout] Respiratory 15 17 14 Rate Respiratory Rate [Anterior Bilateral Throughout] Respiratory Rate [Posterior Bilateral Throughout] Blood Pressure 147/88 140/84 142/82 O2 Sat by Pulse 90 91 91 Oximetry 10/29/18 10/29/18 10/29/18 05:40 05:50 06:00 Temperature Pulse Rate 113 H 114 H 116 H Pulse Rate [ Anterior Bilateral Throughout] Pulse Rate [ From Monitor] Pulse Rate [ Posterior Bilateral Throughout] Respiratory 18 12 12 Rate Respiratory Rate [Anterior Bilateral Throughout] Respiratory Rate [Posterior Bilateral Throughout] Blood Pressure 144/83 145/88 156/84 O2 Sat by Pulse 91 91 92 Oximetry 10/29/18 10/29/18 10/29/18 06:10 06:20 06:30 Temperature Pulse Rate 115 H 117 H 118 H Pulse Rate [ Anterior Bilateral Throughout] Pulse Rate [ From Monitor] Pulse Rate [ Posterior Bilateral Throughout] Respiratory 11 L 20 11 L Rate Respiratory Rate [Anterior Bilateral Throughout] Respiratory Rate [Posterior Bilateral Throughout] Blood Pressure 155/89 152/87 154/82 O2 Sat by Pulse 90 90 91 Oximetry 10/29/18 10/29/18 10/29/18 06:40 06:50 07:00 Temperature Pulse Rate 115 H 114 H 112 H Pulse Rate [ Anterior Bilateral Throughout] Pulse Rate [ From Monitor] Pulse Rate [ Posterior Bilateral Throughout] Respiratory 12 10 L 10 L Rate Respiratory Rate [Anterior Bilateral Throughout] Respiratory Rate [Posterior Bilateral Throughout] Blood Pressure 145/90 132/84 149/83 O2 Sat by Pulse 95 93 92 Oximetry 10/29/18 10/29/18 10/29/18 07:10 07:19 07:20 Temperature Pulse Rate 113 H 111 H Pulse Rate [ 103 H Anterior Bilateral Throughout] Pulse Rate [ From Monitor] Pulse Rate [ 89 Posterior Bilateral Throughout] Respiratory 11 L 11 L Rate Respiratory 20 Rate [Anterior Bilateral Throughout] Respiratory 20 Rate [Posterior Bilateral Throughout] Blood Pressure 146/85 144/92 O2 Sat by Pulse 91 89 Oximetry 10/29/18 10/29/18 10/29/18 07:30 07:40 07:50 Temperature Pulse Rate 113 H 112 H 118 H Pulse Rate [ Anterior Bilateral Throughout] Pulse Rate [ From Monitor] Pulse Rate [ Posterior Bilateral Throughout] Respiratory 13 12 22 Rate Respiratory Rate [Anterior Bilateral Throughout] Respiratory Rate [Posterior Bilateral Throughout] Blood Pressure 136/90 150/95 187/97 O2 Sat by Pulse 89 91 93 Oximetry 10/29/18 10/29/18 10/29/18 08:00 08:11 08:21 Temperature 98.4 F Pulse Rate 116 H 117 H 117 H Pulse Rate [ Anterior Bilateral Throughout] Pulse Rate [ 116 H From Monitor] Pulse Rate [ Posterior Bilateral Throughout] Respiratory 15 12 12 Rate Respiratory Rate [Anterior Bilateral Throughout] Respiratory Rate [Posterior Bilateral Throughout] Blood Pressure 166/88 163/90 161/100 O2 Sat by Pulse 94 94 95 Oximetry 10/29/18 10/29/18 10/29/18 08:30 08:41 08:51 Temperature Pulse Rate 117 H 116 H 116 H Pulse Rate [ Anterior Bilateral Throughout] Pulse Rate [ From Monitor] Pulse Rate [ Posterior Bilateral Throughout] Respiratory 11 L 11 L 15 Rate Respiratory Rate [Anterior Bilateral Throughout] Respiratory Rate [Posterior Bilateral Throughout] Blood Pressure 146/85 146/85 156/83 O2 Sat by Pulse 91 99 97 Oximetry 10/29/18 10/29/18 10/29/18 09:00 09:11 09:21 Temperature Pulse Rate 115 H 114 H 115 H Pulse Rate [ Anterior Bilateral Throughout] Pulse Rate [ From Monitor] Pulse Rate [ Posterior Bilateral Throughout] Respiratory 13 14 14 Rate Respiratory Rate [Anterior Bilateral Throughout] Respiratory Rate [Posterior Bilateral Throughout] Blood Pressure 162/97 162/97 165/92 O2 Sat by Pulse 91 96 97 Oximetry 10/29/18 10/29/18 10/29/18 09:30 09:41 09:44 Temperature Pulse Rate 116 H 117 H 119 H Pulse Rate [ Anterior Bilateral Throughout] Pulse Rate [ From Monitor] Pulse Rate [ Posterior Bilateral Throughout] Respiratory 13 16 Rate Respiratory Rate [Anterior Bilateral Throughout] Respiratory Rate [Posterior Bilateral Throughout] Blood Pressure 169/102 169/102 169/102 O2 Sat by Pulse 92 98 Oximetry 10/29/18 10/29/18 10/29/18 09:45 09:51 10:00 Temperature Pulse Rate 119 H 118 H 111 H Pulse Rate [ Anterior Bilateral Throughout] Pulse Rate [ From Monitor] Pulse Rate [ Posterior Bilateral Throughout] Respiratory 11 L 17 Rate Respiratory Rate [Anterior Bilateral Throughout] Respiratory Rate [Posterior Bilateral Throughout] Blood Pressure 158/92 158/92 171/103 O2 Sat by Pulse 98 89 Oximetry 10/29/18 10/29/18 10/29/18 10:11 10:21 10:25 Temperature Pulse Rate 104 H 99 H 100 H Pulse Rate [ Anterior Bilateral Throughout] Pulse Rate [ From Monitor] Pulse Rate [ Posterior Bilateral Throughout] Respiratory 13 11 L Rate Respiratory Rate [Anterior Bilateral Throughout] Respiratory Rate [Posterior Bilateral Throughout] Blood Pressure 171/103 155/91 O2 Sat by Pulse 97 96 Oximetry 10/29/18 10/29/18 10/29/18 10:30 10:41 10:51 Temperature Pulse Rate 100 H 105 H 103 H Pulse Rate [ Anterior Bilateral Throughout] Pulse Rate [ From Monitor] Pulse Rate [ Posterior Bilateral Throughout] Respiratory 11 L 13 10 L Rate Respiratory Rate [Anterior Bilateral Throughout] Respiratory Rate [Posterior Bilateral Throughout] Blood Pressure 143/93 143/93 133/73 O2 Sat by Pulse 90 95 97 Oximetry 10/29/18 10/29/18 10/29/18 11:00 11:11 11:20 Temperature Pulse Rate 104 H 103 H 103 H Pulse Rate [ Anterior Bilateral Throughout] Pulse Rate [ From Monitor] Pulse Rate [ Posterior Bilateral Throughout] Respiratory 12 12 10 L Rate Respiratory Rate [Anterior Bilateral Throughout] Respiratory Rate [Posterior Bilateral Throughout] Blood Pressure 135/75 135/75 138/79 O2 Sat by Pulse 93 97 97 Oximetry 10/29/18 10/29/18 10/29/18 11:30 11:41 11:51 Temperature Pulse Rate 103 H 104 H 101 H Pulse Rate [ Anterior Bilateral Throughout] Pulse Rate [ From Monitor] Pulse Rate [ Posterior Bilateral Throughout] Respiratory 12 11 L 13 Rate Respiratory Rate [Anterior Bilateral Throughout] Respiratory Rate [Posterior Bilateral Throughout] Blood Pressure 133/72 133/72 127/69 O2 Sat by Pulse 92 97 99 Oximetry 10/29/18 10/29/18 10/29/18 12:00 12:11 12:21 Temperature 98.1 F Pulse Rate 102 H 103 H 101 H Pulse Rate [ Anterior Bilateral Throughout] Pulse Rate [ 102 H From Monitor] Pulse Rate [ Posterior Bilateral Throughout] Respiratory 11 L 16 14 Rate Respiratory Rate [Anterior Bilateral Throughout] Respiratory Rate [Posterior Bilateral Throughout] Blood Pressure 126/64 127/69 125/57 O2 Sat by Pulse 94 98 99 Oximetry 10/29/18 10/29/18 10/29/18 12:30 12:40 12:41 Temperature Pulse Rate 102 H 102 H 103 H Pulse Rate [ Anterior Bilateral Throughout] Pulse Rate [ From Monitor] Pulse Rate [ Posterior Bilateral Throughout] Respiratory 15 15 12 Rate Respiratory Rate [Anterior Bilateral Throughout] Respiratory Rate [Posterior Bilateral Throughout] Blood Pressure 134/85 134/85 126/64 O2 Sat by Pulse 90 98 98 Oximetry 10/29/18 10/29/18 10/29/18 12:51 13:00 13:11 Temperature Pulse Rate 103 H 102 H 103 H Pulse Rate [ Anterior Bilateral Throughout] Pulse Rate [ From Monitor] Pulse Rate [ Posterior Bilateral Throughout] Respiratory 16 12 15 Rate Respiratory Rate [Anterior Bilateral Throughout] Respiratory Rate [Posterior Bilateral Throughout] Blood Pressure 129/86 142/88 142/88 O2 Sat by Pulse 98 89 98 Oximetry 10/29/18 10/29/18 10/29/18 13:20 13:21 13:30 Temperature Pulse Rate 103 H 102 H 105 H Pulse Rate [ Anterior Bilateral Throughout] Pulse Rate [ From Monitor] Pulse Rate [ Posterior Bilateral Throughout] Respiratory 24 17 17 Rate Respiratory Rate [Anterior Bilateral Throughout] Respiratory Rate [Posterior Bilateral Throughout] Blood Pressure 133/82 133/82 139/83 O2 Sat by Pulse 98 98 86 Oximetry 10/29/18 10/29/18 10/29/18 13:41 13:51 14:00 Temperature Pulse Rate 102 H 103 H 102 H Pulse Rate [ Anterior Bilateral Throughout] Pulse Rate [ From Monitor] Pulse Rate [ Posterior Bilateral Throughout] Respiratory 14 11 L 13 Rate Respiratory Rate [Anterior Bilateral Throughout] Respiratory Rate [Posterior Bilateral Throughout] Blood Pressure 139/83 140/83 142/92 O2 Sat by Pulse 96 95 90 Oximetry 10/29/18 10/29/18 10/29/18 14:11 14:21 14:22 Temperature Pulse Rate 101 H 102 H Pulse Rate [ 101 H Anterior Bilateral Throughout] Pulse Rate [ From Monitor] Pulse Rate [ Posterior Bilateral Throughout] Respiratory 12 9 L Rate Respiratory 17 Rate [Anterior Bilateral Throughout] Respiratory Rate [Posterior Bilateral Throughout] Blood Pressure 142/92 150/92 O2 Sat by Pulse 96 97 Oximetry 10/29/18 10/29/18 10/29/18 14:30 14:41 14:51 Temperature Pulse Rate 101 H 100 H 102 H Pulse Rate [ 103 H Anterior Bilateral Throughout] Pulse Rate [ From Monitor] Pulse Rate [ Posterior Bilateral Throughout] Respiratory 14 14 14 Rate Respiratory 17 Rate [Anterior Bilateral Throughout] Respiratory Rate [Posterior Bilateral Throughout] Blood Pressure 149/90 140/83 151/98 O2 Sat by Pulse 95 99 98 Oximetry 10/29/18 10/29/18 10/29/18 15:00 15:11 15:21 Temperature Pulse Rate 103 H Pulse Rate [ Anterior Bilateral Throughout] Pulse Rate [ From Monitor] Pulse Rate [ Posterior Bilateral Throughout] Respiratory 16 Rate Respiratory Rate [Anterior Bilateral Throughout] Respiratory Rate [Posterior Bilateral Throughout] Blood Pressure 150/93 150/93 147/89 O2 Sat by Pulse 93 98 97 Oximetry 10/29/18 10/29/18 10/29/18 15:30 15:41 15:51 Temperature Pulse Rate Pulse Rate [ Anterior Bilateral Throughout] Pulse Rate [ From Monitor] Pulse Rate [ Posterior Bilateral Throughout] Respiratory Rate Respiratory Rate [Anterior Bilateral Throughout] Respiratory Rate [Posterior Bilateral Throughout] Blood Pressure 139/91 150/93 141/84 O2 Sat by Pulse 89 99 96 Oximetry 10/29/18 10/29/18 16:00 16:11 Temperature Pulse Rate 109 H Pulse Rate [ Anterior Bilateral Throughout] Pulse Rate [ 109 H From Monitor] Pulse Rate [ Posterior Bilateral Throughout] Respiratory 22 22 Rate Respiratory Rate [Anterior Bilateral Throughout] Respiratory Rate [Posterior Bilateral Throughout] Blood Pressure 160/90 139/91 O2 Sat by Pulse 87 98 Oximetry - Lab 10/29/18 03:59 10/28/18 03:59 Most recent lab results Calcium 8.9 mg/dL (8.4-10.2) 10/28/18 03:59 Magnesium 2.10 mg/dL (1.7-2.3) 10/29/18 03:59 241.0 mg/dL (0.1-20.0) H 10/28/18 13:37 21 mmol/L 10/28/18 13:37 Medications & Allergies - Medications Allergies/Adverse Reactions: Allergies lisinopril Allergy (Verified 10/09/18 09:19) Hives Home Medications: Home Medications Medication Instructions Recorded Confirmed Last Taken Type Albuterol Sulfate [Albuterol 1 - 2 puff IH Q6H PRN 10/09/18 10/27/18 Unknown History Sulfate Hfa] Ciprofloxacin HCl [Ciprofloxacin 500 mg PO Q12HR #14 tab 10/09/18 10/27/18 Unknown Rx TAB] Furosemide [Lasix] 20 mg PO QDAY 10/09/18 10/27/18 Unknown History Furosemide [Lasix] 20 mg PO QDAY #30 tablet 10/09/18 10/27/18 10/26/18 Rx Hydralazine HCl 50 mg PO Q12H 10/09/18 10/27/18 10/26/18 History Isosorbide Dinitrate [Isordil 10 mg PO TID 10/09/18 10/27/18 Unknown History Titradose] Metoprolol [Lopressor TAB] 25 mg PO BID #60 tablet 10/09/18 10/27/18 10/26/18 Rx Simvastatin 20 mg PO DAILY #30 tablet 10/09/18 10/27/18 10/26/18 Rx hydroCHLOROthiazide [Hctz] 12.5 mg PO QDAY #30 capsule 10/09/18 10/27/18 10/26/18 Rx Active Medications: Generic Name Dose Route Start Last Admin Trade Name Freq PRN Reason Stop Dose Admin Albuterol 2.5 mg 10/27/18 08:00 10/29/18 07:12 Proventil IH 2.5 mg Q6HRT PRN Administration Shortness Of Breath Albuterol/Ipratropium 1 ampul 10/27/18 02:00 10/29/18 14:22 Duoneb *Not For Prn Use* IH 1 ampul Q6HRT FAYE Administration Lipase/Protease/Amylase 1 each 10/28/18 13:07 Nadia Baez 10,500 Unit FEEDTUBE PRN PRN For Clogged Feeding Tube Aspirin 325 mg 10/27/18 10:00 10/29/18 09:44 Aspirin PO 325 mg QDAY FAYE Administration Budesonide 0.5 mg 10/27/18 08:00 10/29/18 07:12 Pulmicort IH 0.5 mg Q12HRT FAYE Administration Diphenhydramine HCl 25 mg 10/28/18 22:49 10/28/18 23:05 Benadryl IV 25 mg Q6H PRN Administration Itching Famotidine 20 mg 10/29/18 10:00 10/29/18 09:45 Pepcid PO 20 mg DAILY FAYE Administration Fentanyl 50 mcg 10/27/18 13:07 10/29/18 07:56 Sublimaze IV 50 mcg Q10MIN PRN Administration ANALGESIA Furosemide 40 mg 10/27/18 14:00 10/29/18 13:23 Lasix IV 40 mg Q8H FAYE Administration Heparin Sodium (Porcine) 5,000 unit 10/27/18 22:00 10/29/18 09:43 Heparin SUB-Q 5,000 unit BID FAYE Administration Hydralazine HCl 50 mg 10/27/18 02:30 10/29/18 09:44 Apresoline PO 50 mg Q12HR FAYE Administration Hydralazine HCl 10 mg 10/27/18 02:33 Apresoline IV Q4H PRN sb/p >150 Hydrophilic Ointment 1 applic 10/27/18 13:07 Vaseline Lip Therapy TP Q2HR PRN Dry Lips Levofloxacin/Dextrose 750 mg in 150 mls @ 100 mls/hr 10/29/18 10:00 10/29/18 09:46 Levaquin 750mg/150ml IV 11/06/18 11:29 100 mls/hr Q48HR FAYE Administration Protocol Fentanyl Citrate 2,000 mcg in 100 mls @ 7.485 mls/hr 10/27/18 14:00 10/29/18 11:48 Fentanyl Drip Premix IV 0 mcg/kg/hr TITR FAYE 0 mls/hr Titration Protocol 1 MCG/KG/HR Propofol 1,000 mg in 100 mls @ 4.491 mls/hr 10/27/18 14:00 10/28/18 08:35 Diprivan 10 Mg/Ml IV 0 mcg/kg/min TITR FAYE 0 mls/hr Titration Protocol 5 MCG/KG/MIN Milrinone Lactate/Dextrose 20 mg in 100 mls @ 16.841 mls/hr 10/27/18 15:00 10/29/18 15:02 Milrinone-D5w 20 Mg/100 Ml IV 10/30/18 14:59 0.375 mcg/kg/min TITR FAYE 16.841 mls/hr Administration 0.375 MCG/KG/MIN Sodium Chloride 500 mls @ 10 mls/hr 10/29/18 09:55 10/29/18 10:08 Nacl 0.9% 500 Ml IV 10 mls/hr PRN PRN Administration FOR IV ANTIBIOTICS Insulin Human Lispro 0 unit 10/27/18 13:00 10/29/18 12:22 Humalog SUB-Q Not Given Q6HR [facility] Protocol Isosorbide Dinitrate 10 mg 10/27/18 08:00 10/29/18 13:20 Isordil Titradose PO 10 mg TID FAYE Administration Metoprolol Tartrate 50 mg 10/27/18 10:00 10/29/18 09:45 Lopressor PO 50 mg BID FAYE Administration Midazolam HCl 2 mg 10/27/18 13:38 Versed IV Q1H PRN Agitation Multi-Ingred Cream/Lotion/Oil/Oint 1 applic 10/27/18 13:07 Artificial Tears Ophth Oint OU Q4HR PRN Dry Eye(s) Pravastatin Sodium 40 mg 10/27/18 22:00 10/28/18 22:34 Pravachol PO 40 mg QHS FAYE Administration Simple Syrup 15 ml 10/28/18 13:07 Simple Syrup FEEDTUBE PRN PRN Hypoglycemia Simple Syrup 30 ml 10/28/18 13:07 Simple Syrup FEEDTUBE PRN PRN Hypoglycemia Sodium Bicarbonate 325 mg 10/28/18 13:07 Sodium Bicarbonate FEEDTUBE PRN PRN For Clogged Feeding Tube
[2018-10-29] MEDS: PRAVACHOL PO SCH (21:03)
[2018-10-30] MEDS: MILRINONE-D5W 20 MG/100 ML 20 MG/100 ML BAG IV SCH ×3 (03:02→17:19)
[2018-10-30] MEDS: APRESOLINE IV PRN ×2 (03:07→16:47)
[2018-10-30] MEDS: DUONEB *Not for PRN Use IH SCH ×6 (03:17→20:09)
[2018-10-30 05:18] LABS: Hematocrit 32.1 % (35.5-45.6); Hemoglobin 10.7 gm/dl (11.8-15.2); Mean Corpuscular HGB Conc 33 % (32-34); Mean Corpuscular Volume 93 fl (84-94); Platelet Count 285 K/mm3 (140-440); Red Blood Count 3.45 M/mm3 (3.65-5.03); Red Cell Distribution Width 16.1 % (13.2-15.2)
[2018-10-30 05:41] LABS: Calcium 8.6 mg/dL (8.4-10.2)
[2018-10-30] MEDS: LASIX IV SCH ×3 (06:28→21:22)
[2018-10-30] MEDS: HumaLOG SUB-Q SCH ×6 (06:31→21:22)
--- NOTE | 2018-10-30 07:52 | Progress Note ---
Assessment and Plan Assessment and plan: Patient is a 43 yo man with a history of hypertension, asthma, morbid obesity, cardiomyopathy and CKD who presented to [facility] ED on 10/26/18 with sob, leg swelling. He was admitted for CHF to Telemetry, he eventually worsened and was moved to ICU on BIPAP on 10/27/18 then he was intubated. He was subsequently extubated on 10/29/18. -Acute on chronic systolic heart failure, EF est 20-25%: continue to diuresis, Cardiology is following, stopped IV steroids, on Primacor IV drip -Acute hypoxic respiratory failure, it appears he failed Bipap and required Intubation, details are not readily available to me at this time: currently on nasal canula, Pulmonology is following. -Acute on chronic kidney failure, stage 3, Cardiorenal, atn +vasomotor, poa: treat the CHF, Nephrology consulted, input noted -Morbid Obesity, bmi 41.3: Operator Supply to follow -Suspected Right Perihilar Pneumonia with suspect sepsis, poa: on Abx -Hypertensive heart disease: monitor salt intake, daily weights and i/o, treat with antihypertensives -DVT/GI prophylaxis reviewed Full code Possibly transfer to tele or IMCU. CCT 34 minutes History Interval history: Patient was seen and examined. Follow-up on current diagnosis of CHF and respira tory failure. No overnight events reported to me. Imaging, nursing note, chart, labs and old chart reviewed. Hospitalist Physical - Physical exam Narrative exam: Gen: morbid obese bmi 41.3, ill appearing, extubated now HEENT: NCAT, EOMI, PERRL, OP clear Neck: supple, no adenopathy, no thyromegaly, equivocal JVD CVS/Heart: Regular tachy, normal S1S2, pulses present bilaterally Chest/Lungs: tachypneic, diminished bs bilateral, Symmetrical chest expansion, good air entry bilaterally GI/Abdomen: soft, NTND, good bowel sounds, no guarding or rebound /Bladder: no suprapubic tenderness, no CVA or paraspinal tenderness Extermity/Skin: ble edema MSK: from x 4 Neuro: No new focal deficits Psych: calm - Constitutional Vitals: Temp Pulse Resp BP Pulse Ox 98.2 F 106 H 15 172/101 98 10/30/18 07:31 10/30/18 07:00 10/30/18 07:00 10/30/18 07:00 10/30/18 07:00 General appearance: Absent: mild distress Results - Labs CBC & Chem 7: 10/30/18 04:05 10/30/18 04:05 Labs: Laboratory Last Values WBC 8.1 K/mm3 (4.5-11.0) 10/30/18 04:05 RBC 3.45 M/mm3 (3.65-5.03) L 10/30/18 04:05 Hgb 10.7 gm/dl (11.8-15.2) L 10/30/18 04:05 Hct 32.1 % (35.5-45.6) L 10/30/18 04:05 MCV 93 fl (84-94) 10/30/18 04:05 MCH 31 pg (28-32) 10/30/18 04:05 MCHC 33 % (32-34) 10/30/18 04:05 RDW 16.1 % (13.2-15.2) H 10/30/18 04:05 Plt Count 285 K/mm3 (140-440) 10/30/18 04:05 679.01 ng/mlDDU (0-234) H 10/27/18 14:34 POC ABG pH 7.342 (7.35-7.45) L 10/29/18 12:32 POC ABG pCO2 53.3 (35-45) H 10/29/18 12:32 POC ABG pO2 109 (80-105) H 10/29/18 12:32 POC ABG HCO3 28.8 (22-26 mml/L) 10/29/18 12:32 POC ABG Total CO2 30 (23-27mmol/L) 10/29/18 12:32 POC ABG O2 Sat 98 10/29/18 12:32 POC ABG Base Excess 3 ((-2) - (+3)mmol/L) 10/29/18 12:32 30 % 10/29/18 12:32 Sodium 145 mmol/L (137-145) 10/30/18 04:05 Potassium 3.3 mmol/L (3.6-5.0) L D 10/30/18 04:05 Chloride 102.1 mmol/L (98-107) 10/30/18 04:05 Carbon Dioxide 29 mmol/L (22-30) 10/30/18 04:05 17 mmol/L 10/30/18 04:05 BUN 34 mg/dL (9-20) H 10/30/18 04:05 2.7 mg/dL (0.8-1.5) H 10/30/18 04:05 Estimated GFR 31 ml/min 10/30/18 04:05 13 % 10/30/18 04:05 Glucose 83 mg/dL (75-100) 10/30/18 04:05 POC Glucose 81 (70-105) 10/30/18 05:39 Lactic Acid 0.80 mmol/L (0.7-2.0) 10/26/18 22:56 Calcium 8.6 mg/dL (8.4-10.2) 10/30/18 04:05 Magnesium 1.90 mg/dL (1.7-2.3) 10/30/18 04:05 0.40 mg/dL (0.1-1.2) 10/28/18 03:59 AST 29 units/L (5-40) 10/28/18 03:59 ALT 25 units/L (7-56) 10/28/18 03:59 45 units/L (35-129) 10/28/18 03:59 215 units/L (55-170) H 10/28/18 10:05 CK-MB (CK-2) 7.7 ng/mL (0.0-4.0) H 10/28/18 10:05 CK-MB (CK-2) Rel Index 3.5 (0-4) 10/28/18 10:05 0.122 ng/mL (0.00-0.029) H* D 10/28/18 10:05 4.30 mg/dL (0.00-1.30) H 10/27/18 14:34 NT-Pro-B Natriuret Pep 8302 pg/mL (0-450) H 10/26/18 18:21 6.1 g/dL (6.3-8.2) L 10/28/18 03:59 3.2 g/dL (3.9-5) L 10/28/18 03:59 1.1 % 10/28/18 03:59 Triglycerides 80 mg/dL (2-149) 10/28/18 00:09 Cholesterol 151 mg/dL (50-199) 10/28/18 00:09 80 mg/dL (50-130) 10/28/18 00:09 59 mg/dL (40-59) 10/28/18 00:09 2.55 % 10/28/18 00:09 Yellow (Yellow) 10/28/18 08:43 Slightly-cloudy (Clear) 10/28/18 08:43 5.0 (5.0-7.0) 10/28/18 08:43 Ur Specific [place] 1.014 (1.003-1.030) 10/28/18 08:43 <15 mg/dl mg/dL (Negative) 10/28/18 08:43 Neg mg/dL (Negative) 10/28/18 08:43 Neg mg/dL (Negative) 10/28/18 08:43 Neg (Negative) 10/28/18 08:43 Neg (Negative) 10/28/18 08:43 Neg (Negative) 10/28/18 08:43 < 2.0 mg/dL (<2.0) 10/28/18 08:43 Ur Leukocyte Esterase Neg (Negative) 10/28/18 08:43 2.0 /HPF (0.0-6.0) 10/28/18 08:43 2.0 /HPF (0.0-6.0) 10/28/18 08:43 1+ /HPF (Negative) 10/28/18 08:43 Few /HPF 10/28/18 08:43 241.0 mg/dL (0.1-20.0) H 10/28/18 13:37 21 mmol/L 10/28/18 13:37 20.1 mmolL (110-250) L 10/28/18 13:37 Active Medications - Current Medications Current Medications: Generic Name Dose Route Start Last Admin Trade Name Freq PRN Reason Stop Dose Admin Albuterol 2.5 mg 10/27/18 08:00 10/29/18 07:12 Proventil IH 2.5 mg Q6HRT PRN Administration Shortness Of Breath Albuterol/Ipratropium 1 ampul 10/27/18 02:00 10/30/18 07:05 Duoneb *Not For Prn Use* IH Not Given Q6HRT FAYE Aspirin 325 mg 10/27/18 10:00 10/29/18 09:44 Aspirin PO 325 mg QDAY FAYE Administration Budesonide 0.5 mg 10/27/18 08:00 10/29/18 21:17 Pulmicort IH 0.5 mg Q12HRT FAYE Administration Diphenhydramine HCl 25 mg 10/28/18 22:49 10/28/18 23:05 Benadryl IV 25 mg Q6H PRN Administration Itching Famotidine 20 mg 10/29/18 10:00 10/29/18 09:45 Pepcid PO 20 mg DAILY FAYE Administration Furosemide 40 mg 10/27/18 14:00 10/30/18 06:28 Lasix IV 40 mg Q8H FAYE Administration Heparin Sodium (Porcine) 5,000 unit 10/27/18 22:00 10/29/18 21:03 Heparin SUB-Q 5,000 unit BID FAYE Administration Hydralazine HCl 50 mg 10/27/18 02:30 10/29/18 21:02 Apresoline PO 50 mg Q12HR FAYE Administration Hydralazine HCl 10 mg 10/27/18 02:33 10/30/18 03:07 Apresoline IV 10 mg Q4H PRN Administration sb/p >150 Hydrophilic Ointment 1 applic 10/27/18 13:07 Vaseline Lip Therapy TP Q2HR PRN Dry Lips Levofloxacin/Dextrose 750 mg in 150 mls @ 100 mls/hr 10/29/18 10:00 10/29/18 09:46 Levaquin 750mg/150ml IV 11/02/18 12:00 100 mls/hr Q48HR FAYE Administration Protocol Milrinone Lactate/Dextrose 20 mg in 100 mls @ 16.841 mls/hr 10/27/18 15:00 10/30/18 03:02 Milrinone-D5w 20 Mg/100 Ml IV 10/30/18 14:59 0.375 mcg/kg/min TITR FAYE 16.841 mls/hr Administration 0.375 MCG/KG/MIN Sodium Chloride 500 mls @ 10 mls/hr 10/29/18 09:55 10/29/18 10:08 Nacl 0.9% 500 Ml IV 10 mls/hr PRN PRN Administration FOR IV ANTIBIOTICS Insulin Human Lispro 0 unit 10/30/18 11:30 Humalog SUB-Q ACHS [facility] Protocol Isosorbide Dinitrate 10 mg 10/27/18 08:00 10/29/18 20:55 Isordil Titradose PO 10 mg TID FAYE Administration Metoprolol Tartrate 50 mg 10/27/18 10:00 10/29/18 21:02 Lopressor PO 50 mg BID FAYE Administration Multi-Ingred Cream/Lotion/Oil/Oint 1 applic 10/27/18 13:07 Artificial Tears Ophth Oint OU Q4HR PRN Dry Eye(s) Potassium Chloride 40 meq 10/30/18 08:00 K-Dur PO 10/30/18 08:01 ONCE ONE Pravastatin Sodium 40 mg 10/27/18 22:00 10/29/18 21:03 Pravachol PO 40 mg QHS FAYE Administration Nutrition/Malnutrition Assess - Dietary Evaluation Nutrition/Malnutrition Findings: Nutrition Notes Start: 10/28/18 08:24 Freq: Status: Active Protocol: Document 10/28/18 08:24 CP (Rec: 10/28/18 08:53 CP [id number]) Co-Sign 10/28/18 08:24 LP Nutrition Notes Need for Assessment generated from: MD Order Initial or Follow up Assessment Current Diagnosis Hypertension,Heart Failure Other Pertinent Diagnosis Asthma, dyspnea Current Diet NPO Labs/Tests POC Glu: 109 Pertinent Medications Lasix Insulin Propofol Height 6 ft 3 in Weight 149.7 kg [place] Body Weight (kg) 89.09 BMI 41.2 Weight Status Morbidly Obese Subjective/Other Information MD consult for TF and to evaluate NTR intake. Noted that the pt is on the vent/NPO during time of visit. Percent of energy/protein needs met: 0%/0% Burn Absent Trauma Absent #1 Nutrition Diagnosis Inadequate oral intake Etiology Mechanical Vent As Evidenced by Signs and Symptoms TF consult Is patient on ventilator? Yes Is Patient Ambulatory and/or Out of Bed No REE-([facility]-confined to bed) 2975.484 Kcal/Kg value to use for calculation 15 Approximate Energy Requirements Using 2246 kcal/Kg Calculation Used for Recommendations Kcal/kg Additional Notes Pro: 178-196g/day (2-2.2g/kg IBW) Fluid: 1mL/kcal or per MD request Nutrition Intervention Change Diet Order: TF Nutrition Support: Vital AF 1.2 at 80 mL/kcal Water flush 100 q4h. Kcal 2,304 Protein (gm) 144 Fluid (mL) 1,557 Goal #1 TF to start Goal #2 TF tolerance once TF is started Anticipated Discharge Needs: Unable to determine at this time Follow-Up By: 10/30/18 Additional Comments F/U: TF to start/ TF tolerance
[2018-10-30] MEDS ORDERED: K-DUR PO ONE (08:00)
--- NOTE | 2018-10-30 09:07 | Progress Note ---
Assessment and Plan Acute hypoxemic respiratory failure s/pMVS Presumptive diagnosis of acute pulmonary edema. HFrEF (20-25%) Poorly controlled hypertension. Morbid obesity. Acute on chronic kidney injury. - continue empiric Levaquin monotherapy (5 days of empiric treatment) then stop -continue ionotropic support - continue bronchodilators with pulmonary hygiene per RT - continue VTE prophylaxis - continue to wean supplemental oxygen to keep O2 sats 88-90% - ABGs/CXR in am - Continue cardioprotective measures -Continue heart failure measures--BiDil - Diuresis per nephrology - Replete electrolytes as indicated - Monitor renal indices closely - Avoid nephrotoxic agents, adjust all medications for CrCL - Strict intake and output monitoring - Accuchecks with glycemic control. Target glucose of 140-180 mg/dL -PT/OT, increase activity -Out patient sleep study -weight loss and life style modifications - Influenza and pneumonia vaccination per protocol ..care plan discussed at length with RN/RT at the bedside ..discussed in ICU-IDT rounds ... Plan to transfer to telemetry on fixed dose milrinone PROGNOSIS: FAIR CODE STATUS: FULL CODE The high probability of a clinically significant, sudden or life-threatening deterioration of the [respiratory, cardiovascular, renal] system(s) required my full and direct attention, intervention and personal management. The aggregate critical care time was [32] minutes without overlap. Time includes spent on; [x] Data Review and interpretation [x] Patient assessment and monitoring of vital signs [x] Documentation [x] Medication orders and management Subjective Date of service: 10/30/18 Principal diagnosis: Ac hypoxemic Resp failure; Acute pulmonary edema; Poorly controlled HTN Interval history: Patient is seen today for: Acute hypoxemic respiratory failure; Presumptive diagnosis of acute pulmonary edema; Poorly controlled hypertension. Seen and examined at bedside; 24hour events reviewed; nursing and respiratory care staff consulted; no adverse overnight events reported to me; extubated on 3L of oxygen via NC, making urine; denies acute chest pains or palpitations; Less SOB; no emesis or overt aspiration; remains on milrinone drip, on a cardiac diet Objective Vital Signs - 12hr 10/29/18 10/29/18 10/29/18 21:10 21:11 21:20 Temperature Pulse Rate 118 H Pulse Rate [ 115 H 118 H Anterior Bilateral Throughout] Pulse Rate [ Apical] Pulse Rate [ From Monitor] Respiratory 18 Rate Respiratory 18 14 Rate [Anterior Bilateral Throughout] Blood Pressure 170/98 O2 Sat by Pulse 92 97 Oximetry 10/29/18 10/29/18 10/29/18 21:21 21:30 21:41 Temperature Pulse Rate 115 H 114 H 114 H Pulse Rate [ Anterior Bilateral Throughout] Pulse Rate [ Apical] Pulse Rate [ From Monitor] Respiratory 10 L 15 16 Rate Respiratory Rate [Anterior Bilateral Throughout] Blood Pressure 156/96 163/104 163/104 O2 Sat by Pulse 100 96 94 Oximetry 10/29/18 10/29/18 10/29/18 21:51 22:00 22:11 Temperature Pulse Rate 112 H 114 H 108 H Pulse Rate [ Anterior Bilateral Throughout] Pulse Rate [ Apical] Pulse Rate [ From Monitor] Respiratory 16 17 14 Rate Respiratory Rate [Anterior Bilateral Throughout] Blood Pressure 170/104 166/108 166/108 O2 Sat by Pulse 95 96 94 Oximetry 10/29/18 10/29/18 10/29/18 22:21 22:30 22:41 Temperature Pulse Rate 105 H 102 H 102 H Pulse Rate [ Anterior Bilateral Throughout] Pulse Rate [ Apical] Pulse Rate [ From Monitor] Respiratory 13 14 15 Rate Respiratory Rate [Anterior Bilateral Throughout] Blood Pressure 158/90 146/97 146/97 O2 Sat by Pulse 96 93 93 Oximetry 10/29/18 10/29/18 10/29/18 22:51 23:00 23:11 Temperature Pulse Rate 104 H 104 H 107 H Pulse Rate [ Anterior Bilateral Throughout] Pulse Rate [ Apical] Pulse Rate [ From Monitor] Respiratory 17 16 16 Rate Respiratory Rate [Anterior Bilateral Throughout] Blood Pressure 142/86 145/86 145/86 O2 Sat by Pulse 97 94 99 Oximetry 10/29/18 10/29/18 10/29/18 23:21 23:30 23:37 Temperature Pulse Rate 103 H 108 H 106 H Pulse Rate [ Anterior Bilateral Throughout] Pulse Rate [ Apical] Pulse Rate [ From Monitor] Respiratory 16 19 17 Rate Respiratory Rate [Anterior Bilateral Throughout] Blood Pressure 150/94 165/110 148/97 O2 Sat by Pulse 97 93 96 Oximetry 10/29/18 10/29/18 10/30/18 23:41 23:51 00:00 Temperature 98.9 F Pulse Rate 106 H 106 H 106 H Pulse Rate [ Anterior Bilateral Throughout] Pulse Rate [ Apical] Pulse Rate [ 106 H From Monitor] Respiratory 18 16 14 Rate Respiratory Rate [Anterior Bilateral Throughout] Blood Pressure 148/97 133/77 149/93 O2 Sat by Pulse 95 95 94 Oximetry 10/30/18 10/30/18 10/30/18 00:11 00:21 00:30 Temperature Pulse Rate 100 H 102 H 99 H Pulse Rate [ Anterior Bilateral Throughout] Pulse Rate [ Apical] Pulse Rate [ From Monitor] Respiratory 12 19 13 Rate Respiratory Rate [Anterior Bilateral Throughout] Blood Pressure 149/93 144/94 139/81 O2 Sat by Pulse 99 98 96 Oximetry 10/30/18 10/30/18 10/30/18 00:41 00:51 01:00 Temperature Pulse Rate 103 H 100 H 100 H Pulse Rate [ Anterior Bilateral Throughout] Pulse Rate [ Apical] Pulse Rate [ From Monitor] Respiratory 20 13 13 Rate Respiratory Rate [Anterior Bilateral Throughout] Blood Pressure 139/81 132/85 142/93 O2 Sat by Pulse 99 98 90 Oximetry 10/30/18 10/30/18 10/30/18 01:11 01:21 01:30 Temperature Pulse Rate 100 H 102 H 102 H Pulse Rate [ Anterior Bilateral Throughout] Pulse Rate [ Apical] Pulse Rate [ From Monitor] Respiratory 12 11 L 12 Rate Respiratory Rate [Anterior Bilateral Throughout] Blood Pressure 139/81 154/95 150/93 O2 Sat by Pulse 98 97 92 Oximetry 10/30/18 10/30/18 10/30/18 01:41 01:51 02:00 Temperature Pulse Rate 102 H 102 H 103 H Pulse Rate [ Anterior Bilateral Throughout] Pulse Rate [ Apical] Pulse Rate [ 103 H From Monitor] Respiratory 13 13 12 Rate Respiratory Rate [Anterior Bilateral Throughout] Blood Pressure 142/93 164/101 160/106 O2 Sat by Pulse 98 96 94 Oximetry 10/30/18 10/30/18 10/30/18 02:11 02:21 02:30 Temperature Pulse Rate 100 H 102 H 103 H Pulse Rate [ Anterior Bilateral Throughout] Pulse Rate [ Apical] Pulse Rate [ From Monitor] Respiratory 15 13 16 Rate Respiratory Rate [Anterior Bilateral Throughout] Blood Pressure 154/95 166/115 161/105 O2 Sat by Pulse 96 98 94 Oximetry 10/30/18 10/30/18 10/30/18 02:41 02:51 03:00 Temperature Pulse Rate 105 H 102 H 103 H Pulse Rate [ Anterior Bilateral Throughout] Pulse Rate [ Apical] Pulse Rate [ From Monitor] Respiratory 15 14 11 L Rate Respiratory Rate [Anterior Bilateral Throughout] Blood Pressure 161/105 172/107 161/109 O2 Sat by Pulse 96 98 93 Oximetry 10/30/18 10/30/18 10/30/18 03:05 03:07 03:11 Temperature Pulse Rate 102 H 103 H Pulse Rate [ 103 H Anterior Bilateral Throughout] Pulse Rate [ Apical] Pulse Rate [ From Monitor] Respiratory 12 Rate Respiratory 18 Rate [Anterior Bilateral Throughout] Blood Pressure 156/106 156/106 O2 Sat by Pulse 99 Oximetry 10/30/18 10/30/18 10/30/18 03:15 03:21 03:30 Temperature Pulse Rate 103 H 104 H Pulse Rate [ 102 H Anterior Bilateral Throughout] Pulse Rate [ Apical] Pulse Rate [ From Monitor] Respiratory 12 19 Rate Respiratory 14 Rate [Anterior Bilateral Throughout] Blood Pressure 154/96 155/97 O2 Sat by Pulse 98 98 Oximetry 10/30/18 10/30/18 10/30/18 03:41 03:51 04:00 Temperature 98.8 F Pulse Rate 102 H 104 H 102 H Pulse Rate [ Anterior Bilateral Throughout] Pulse Rate [ Apical] Pulse Rate [ 102 H From Monitor] Respiratory 13 13 13 Rate Respiratory Rate [Anterior Bilateral Throughout] Blood Pressure 156/106 160/97 153/94 O2 Sat by Pulse 100 98 98 Oximetry 10/30/18 10/30/18 10/30/18 04:11 04:21 04:30 Temperature Pulse Rate 105 H 103 H 106 H Pulse Rate [ Anterior Bilateral Throughout] Pulse Rate [ Apical] Pulse Rate [ From Monitor] Respiratory 14 19 13 Rate Respiratory Rate [Anterior Bilateral Throughout] Blood Pressure 153/94 157/104 160/98 O2 Sat by Pulse 99 98 99 Oximetry 10/30/18 10/30/18 10/30/18 04:41 04:51 05:00 Temperature Pulse Rate 106 H 106 H 104 H Pulse Rate [ Anterior Bilateral Throughout] Pulse Rate [ Apical] Pulse Rate [ From Monitor] Respiratory 18 13 10 L Rate Respiratory Rate [Anterior Bilateral Throughout] Blood Pressure 160/98 155/101 155/99 O2 Sat by Pulse 100 98 99 Oximetry 10/30/18 10/30/18 10/30/18 05:11 05:21 05:30 Temperature Pulse Rate 105 H 102 H 103 H Pulse Rate [ Anterior Bilateral Throughout] Pulse Rate [ Apical] Pulse Rate [ From Monitor] Respiratory 13 15 13 Rate Respiratory Rate [Anterior Bilateral Throughout] Blood Pressure 155/99 161/99 164/103 O2 Sat by Pulse 100 100 99 Oximetry 10/30/18 10/30/18 10/30/18 05:41 05:51 06:00 Temperature Pulse Rate 104 H 102 H 103 H Pulse Rate [ Anterior Bilateral Throughout] Pulse Rate [ Apical] Pulse Rate [ 103 H From Monitor] Respiratory 13 13 12 Rate Respiratory Rate [Anterior Bilateral Throughout] Blood Pressure 161/99 168/102 156/102 O2 Sat by Pulse 98 98 98 Oximetry 10/30/18 10/30/18 10/30/18 06:11 06:21 06:30 Temperature Pulse Rate 103 H 114 H 107 H Pulse Rate [ Anterior Bilateral Throughout] Pulse Rate [ Apical] Pulse Rate [ From Monitor] Respiratory 14 23 18 Rate Respiratory Rate [Anterior Bilateral Throughout] Blood Pressure 164/103 158/103 162/103 O2 Sat by Pulse 97 94 97 Oximetry 10/30/18 10/30/18 10/30/18 06:41 06:51 07:00 Temperature Pulse Rate 105 H 106 H 106 H Pulse Rate [ Anterior Bilateral Throughout] Pulse Rate [ Apical] Pulse Rate [ From Monitor] Respiratory 16 17 15 Rate Respiratory Rate [Anterior Bilateral Throughout] Blood Pressure 172/101 167/92 172/101 O2 Sat by Pulse 96 98 98 Oximetry 10/30/18 10/30/18 10/30/18 07:11 07:21 07:30 Temperature Pulse Rate 108 H 108 H 104 H Pulse Rate [ Anterior Bilateral Throughout] Pulse Rate [ Apical] Pulse Rate [ From Monitor] Respiratory 14 18 16 Rate Respiratory Rate [Anterior Bilateral Throughout] Blood Pressure 172/101 154/95 155/96 O2 Sat by Pulse 99 97 95 Oximetry 10/30/18 10/30/18 10/30/18 07:31 07:41 07:51 Temperature 98.2 F Pulse Rate 108 H 107 H Pulse Rate [ Anterior Bilateral Throughout] Pulse Rate [ Apical] Pulse Rate [ From Monitor] Respiratory 16 18 Rate Respiratory Rate [Anterior Bilateral Throughout] Blood Pressure 172/101 169/104 O2 Sat by Pulse 99 98 Oximetry 10/30/18 10/30/18 10/30/18 08:00 08:11 08:21 Temperature Pulse Rate 107 H 110 H 109 H Pulse Rate [ Anterior Bilateral Throughout] Pulse Rate [ 116 H Apical] Pulse Rate [ 226 H From Monitor] Respiratory 19 21 19 Rate Respiratory Rate [Anterior Bilateral Throughout] Blood Pressure 161/92 161/92 165/93 O2 Sat by Pulse 95 97 95 Oximetry Constitutional: no acute distress, alert, other (middle aged obese AAM, normocephalic and atraumatic) Eyes: non-icteric ENT: oropharynx moist Neck: supple, no lymphadenopathy, no JVD, other (large neck circumference) Effort: mildly labored Ascultation: Bilateral: rales (improved) Percussion: Bilateral: not dull Cardiovascular: regular rate and rhythm, other (S1,S2) Gastrointestinal: normoactive bowel sounds, soft, non-tender, non-distended Integumentary: normal Extremities: no cyanosis, pulses normal, no ischemia or petechiae, edema (1+) Neurologic: normal mental status, non-focal exam, pupils equal and round, CN II- XII normal, motor strength normal and Psychiatric: mood appropriate, affect normal CBC and BMP: 10/30/18 04:05 10/30/18 04:05 ABG, PT/INR, D-dimer: ABG POC ABG pH 7.342 (7.35-7.45) L 10/29/18 12:32 POC ABG pCO2 53.3 (35-45) H 10/29/18 12:32 POC ABG pO2 109 (80-105) H 10/29/18 12:32 POC ABG HCO3 28.8 (22-26 mml/L) 10/29/18 12:32 POC ABG Total CO2 30 (23-27mmol/L) 10/29/18 12:32 POC ABG O2 Sat 98 10/29/18 12:32 PT/INR, D-dimer 679.01 ng/mlDDU (0-234) H 10/27/18 14:34 Abnormal lab findings: Abnormal Labs 10/26/18 10/26/18 10/26/18 18:21 18:21 22:56 WBC RBC Hgb 11.7 L Hct RDW 17.0 H D-Dimer POC ABG pH POC ABG pCO2 POC ABG pO2 Potassium Carbon Dioxide BUN 21 H Creatinine 2.4 H Glucose 106 H POC Glucose Total Creatine Kinase 287 H CK-MB (CK-2) Troponin T C-Reactive Protein NT-Pro-B Natriuret Pep 8302 H Total Protein 5.6 L Albumin 2.9 L Urine Creatinine Urine Chloride 10/27/18 10/27/18 10/27/18 02:58 03:00 03:00 WBC 12.6 H RBC Hgb Hct RDW 16.5 H D-Dimer POC ABG pH 7.301 L POC ABG pCO2 45.9 H POC ABG pO2 Potassium Carbon Dioxide 20 L BUN 21 H Creatinine 2.6 H Glucose 215 H POC Glucose Total Creatine Kinase CK-MB (CK-2) Troponin T C-Reactive Protein NT-Pro-B Natriuret Pep Total Protein Albumin Urine Creatinine Urine Chloride 10/27/18 10/27/18 10/27/18 12:04 14:34 14:34 WBC RBC Hgb Hct RDW D-Dimer 679.01 H POC ABG pH POC ABG pCO2 POC ABG pO2 Potassium Carbon Dioxide BUN Creatinine Glucose POC Glucose 124 H Total Creatine Kinase CK-MB (CK-2) Troponin T C-Reactive Protein 4.30 H NT-Pro-B Natriuret Pep Total Protein Albumin Urine Creatinine Urine Chloride 10/27/18 10/27/18 10/27/18 15:30 17:52 18:30 WBC RBC Hgb Hct RDW D-Dimer POC ABG pH 7.336 L POC ABG pCO2 50.7 H POC ABG pO2 Potassium Carbon Dioxide BUN Creatinine Glucose POC Glucose 123 H 125 H Total Creatine Kinase CK-MB (CK-2) Troponin T C-Reactive Protein NT-Pro-B Natriuret Pep Total Protein Albumin Urine Creatinine Urine Chloride 10/27/18 10/28/18 10/28/18 23:52 00:09 03:38 WBC RBC Hgb Hct RDW D-Dimer POC ABG pH POC ABG pCO2 51.3 H POC ABG pO2 Potassium Carbon Dioxide BUN Creatinine Glucose POC Glucose 113 H Total Creatine Kinase 229 H CK-MB (CK-2) 6.7 H Troponin T 0.065 H C-Reactive Protein NT-Pro-B Natriuret Pep Total Protein Albumin Urine Creatinine Urine Chloride 10/28/18 10/28/18 10/28/18 03:59 03:59 06:39 WBC RBC Hgb Hct RDW 16.8 H D-Dimer POC ABG pH POC ABG pCO2 POC ABG pO2 Potassium Carbon Dioxide BUN 31 H Creatinine 3.0 H Glucose 127 H POC Glucose 109 H Total Creatine Kinase CK-MB (CK-2) Troponin T C-Reactive Protein NT-Pro-B Natriuret Pep Total Protein 6.1 L Albumin 3.2 L Urine Creatinine Urine Chloride 10/28/18 10/28/18 10/28/18 10:05 11:11 13:37 WBC RBC Hgb Hct RDW D-Dimer POC ABG pH POC ABG pCO2 POC ABG pO2 Potassium Carbon Dioxide BUN Creatinine Glucose POC Glucose 111 H Total Creatine Kinase 215 H CK-MB (CK-2) 7.7 H Troponin T 0.122 H* D C-Reactive Protein NT-Pro-B Natriuret Pep Total Protein Albumin Urine Creatinine 241.0 H Urine Chloride 20.1 L 10/28/18 10/29/18 10/29/18 17:13 03:37 03:59 WBC 12.4 H RBC 3.63 L Hgb 11.0 L Hct 34.1 L RDW 17.0 H D-Dimer POC ABG pH 7.319 L 7.276 L POC ABG pCO2 55.8 H 63.5 H POC ABG pO2 113 H 119 H Potassium Carbon Dioxide BUN Creatinine Glucose POC Glucose Total Creatine Kinase CK-MB (CK-2) Troponin T C-Reactive Protein NT-Pro-B Natriuret Pep Total Protein Albumin Urine Creatinine Urine Chloride 10/29/18 10/30/18 10/30/18 12:32 04:05 04:05 WBC RBC 3.45 L Hgb 10.7 L Hct 32.1 L RDW 16.1 H D-Dimer POC ABG pH 7.342 L POC ABG pCO2 53.3 H POC ABG pO2 109 H Potassium 3.3 L D Carbon Dioxide BUN 34 H Creatinine 2.7 H Glucose POC Glucose Total Creatine Kinase CK-MB (CK-2) Troponin T C-Reactive Protein NT-Pro-B Natriuret Pep Total Protein Albumin Urine Creatinine Urine Chloride Chest x-ray: image reviewed Allied health notes reviewed: nursing
[2018-10-30] MEDS: PULMICORT IH SCH ×2 (09:10→20:09)
[2018-10-30] MEDS: APRESOLINE PO SCH ×2 (10:03→21:17)
[2018-10-30] MEDS: ISORDIL TITRADOSE PO SCH ×2 (10:03→13:53)
[2018-10-30] MEDS: LOPRESSOR PO SCH ×2 (10:03→21:17)
[2018-10-30] MEDS: PEPCID PO SCH (10:03)
[2018-10-30] MEDS: ASPIRIN PO SCH (10:04)
[2018-10-30] MEDS: HEPARIN SUB-Q SCH ×2 (10:04→21:18)
--- NOTE | 2018-10-30 10:37 | Progress Note ---
Assessment and Plan Decompensated systolic heart failure EF 20-25% by echo this admission Volume overload Chronic renal failure Respiratory failure Hypertension Continue aggressive medial therapy for systolic heart failure to include a trial of IV milrinone. Further cardiac evaluation with a persantine stress thallium before discharge. Subjective Date of service: 10/30/18 Principal diagnosis: Ac hypoxemic Resp failure; Acute pulmonary edema; Poorly controlled HTN Interval history: Patient extubated 10/29/18. He denies chest pain and shortness of breath. Still with significant LE edema. Objective Vital Signs Temp Pulse Pulse Pulse Pulse Resp Resp 10/30/18 10:03 111 H 10/30/18 10:00 110 H 20 10/30/18 09:51 110 H 21 10/30/18 09:41 111 H 17 10/30/18 09:30 112 H 16 10/30/18 09:21 111 H 17 10/30/18 09:11 112 H 17 10/30/18 09:00 113 H 19 10/30/18 08:51 110 H 20 10/30/18 08:41 114 H 14 10/30/18 08:30 112 H 15 10/30/18 08:21 109 H 19 10/30/18 08:11 110 H 21 10/30/18 08:00 107 H 116 H 226 H 19 10/30/18 07:51 107 H 18 10/30/18 07:41 108 H 16 10/30/18 07:31 98.2 F 10/30/18 07:30 104 H 16 10/30/18 07:21 108 H 18 10/30/18 07:11 108 H 14 10/30/18 07:00 106 H 15 10/30/18 06:51 106 H 17 10/30/18 06:41 105 H 16 10/30/18 06:30 107 H 18 10/30/18 06:21 114 H 23 10/30/18 06:11 103 H 14 10/30/18 06:00 103 H 103 H 12 10/30/18 05:51 102 H 13 10/30/18 05:41 104 H 13 10/30/18 05:30 103 H 13 10/30/18 05:21 102 H 15 10/30/18 05:11 105 H 13 10/30/18 05:00 104 H 10 L 10/30/18 04:51 106 H 13 10/30/18 04:41 106 H 18 10/30/18 04:30 106 H 13 10/30/18 04:21 103 H 19 10/30/18 04:11 105 H 14 10/30/18 04:00 98.8 F 102 H 102 H 13 10/30/18 03:51 104 H 13 10/30/18 03:41 102 H 13 10/30/18 03:30 104 H 19 10/30/18 03:21 103 H 12 10/30/18 03:15 102 H 14 10/30/18 03:11 103 H 12 10/30/18 03:07 102 H 10/30/18 03:05 103 H 18 10/30/18 03:00 103 H 11 L 10/30/18 02:51 102 H 14 10/30/18 02:41 105 H 15 10/30/18 02:30 103 H 16 10/30/18 02:21 102 H 13 10/30/18 02:11 100 H 15 10/30/18 02:00 103 H 103 H 12 10/30/18 01:51 102 H 13 10/30/18 01:41 102 H 13 10/30/18 01:30 102 H 12 10/30/18 01:21 102 H 11 L 10/30/18 01:11 100 H 12 10/30/18 01:00 100 H 13 10/30/18 00:51 100 H 10/30/18 00:41 103 H 20 10/30/18 00:30 99 H 10/30/18 00:21 102 H 19 10/30/18 00:11 100 H 12 10/30/18 00:00 98.9 F 106 H 106 H 14 10/29/18 23:51 106 H 10/29/18 23:41 106 H 18 10/29/18 23:37 106 H 17 10/29/18 23:30 108 H 19 10/29/18 23:21 103 H 16 10/29/18 23:11 107 H 16 10/29/18 23:00 104 H 16 10/29/18 22:51 104 H 17 10/29/18 22:41 102 H 15 10/29/18 22:30 102 H 14 10/29/18 22:21 105 H 13 10/29/18 22:11 108 H 14 10/29/18 22:00 114 H 17 10/29/18 21:51 112 H 16 10/29/18 21:41 114 H 16 10/29/18 21:30 114 H 15 10/29/18 21:21 115 H 10 L 10/29/18 21:20 118 H 14 10/29/18 21:11 118 H 18 10/29/18 21:10 115 H 18 10/29/18 21:02 117 H 10/29/18 21:00 118 H 16 10/29/18 20:55 118 H 10/29/18 20:51 115 H 10/29/18 20:41 117 H 25 H 10/29/18 20:30 112 H 22 10/29/18 20:21 109 H 22 10/29/18 20:11 113 H 20 10/29/18 20:00 98.6 F 112 H 112 H 22 10/29/18 19:51 114 H 21 10/29/18 19:40 112 H 22 10/29/18 19:30 31 H 10/29/18 19:20 109 H 20 10/29/18 19:11 108 H 25 H 10/29/18 19:00 109 H 20 10/29/18 18:51 108 H 16 10/29/18 18:41 112 H 16 10/29/18 18:30 110 H 17 10/29/18 18:21 110 H 12 10/29/18 18:11 114 H 16 10/29/18 18:00 109 H 10/29/18 17:51 113 H 16 10/29/18 17:48 10/29/18 17:41 107 H 13 10/29/18 17:30 109 H 14 10/29/18 17:21 109 H 15 10/29/18 17:11 112 H 13 10/29/18 17:00 111 H 14 10/29/18 16:51 111 H 15 10/29/18 16:41 107 H 16 10/29/18 16:30 107 H 17 10/29/18 16:25 110 H 18 10/29/18 16:21 108 H 13 10/29/18 16:11 109 H 22 10/29/18 16:00 98.3 F 109 H 22 10/29/18 15:51 10/29/18 15:41 10/29/18 15:30 10/29/18 15:21 10/29/18 15:11 10/29/18 15:00 103 H 16 10/29/18 14:51 102 H 14 10/29/18 14:41 100 H 103 H 14 17 10/29/18 14:30 101 H 14 10/29/18 14:22 101 H 17 10/29/18 14:21 102 H 9 L 10/29/18 14:11 101 H 12 10/29/18 14:00 102 H 13 10/29/18 13:51 103 H 11 L 10/29/18 13:41 102 H 14 10/29/18 13:30 105 H 17 10/29/18 13:21 102 H 17 10/29/18 13:20 103 H 24 10/29/18 13:11 103 H 15 10/29/18 13:00 102 H 12 10/29/18 12:51 103 H 16 10/29/18 12:41 103 H 12 10/29/18 12:40 102 H 15 10/29/18 12:30 102 H 15 10/29/18 12:21 101 H 14 10/29/18 12:11 103 H 16 10/29/18 12:00 98.1 F 102 H 102 H 11 L 10/29/18 11:51 101 H 13 10/29/18 11:41 104 H 11 L 10/29/18 11:30 103 H 12 10/29/18 11:20 103 H 10 L 10/29/18 11:11 103 H 12 10/29/18 11:00 104 H 12 10/29/18 10:51 103 H 10 L 10/29/18 10:41 105 H 13 BP Pulse Ox 10/30/18 10:03 140/79 10/30/18 10:00 140/79 95 10/30/18 09:51 133/80 93 10/30/18 09:41 135/69 94 10/30/18 09:30 135/69 95 10/30/18 09:21 128/77 97 10/30/18 09:11 154/89 97 10/30/18 09:00 154/89 96 10/30/18 08:51 152/90 97 10/30/18 08:41 158/94 98 10/30/18 08:30 158/94 98 10/30/18 08:21 165/93 95 10/30/18 08:11 161/92 97 10/30/18 08:00 161/92 95 10/30/18 07:51 169/104 98 10/30/18 07:41 172/101 99 10/30/18 07:31 10/30/18 07:30 155/96 95 10/30/18 07:21 154/95 97 10/30/18 07:11 172/101 99 10/30/18 07:00 172/101 98 10/30/18 06:51 167/92 98 10/30/18 06:41 172/101 96 10/30/18 06:30 162/103 97 10/30/18 06:21 158/103 94 10/30/18 06:11 164/103 97 10/30/18 06:00 156/102 98 10/30/18 05:51 168/102 98 10/30/18 05:41 161/99 98 10/30/18 05:30 164/103 99 10/30/18 05:21 161/99 100 10/30/18 05:11 155/99 100 10/30/18 05:00 155/99 99 10/30/18 04:51 155/101 98 10/30/18 04:41 160/98 100 10/30/18 04:30 160/98 99 10/30/18 04:21 157/104 98 10/30/18 04:11 153/94 99 10/30/18 04:00 153/94 98 10/30/18 03:51 160/97 98 10/30/18 03:41 156/106 100 10/30/18 03:30 155/97 98 10/30/18 03:21 154/96 98 10/30/18 03:15 10/30/18 03:11 156/106 99 10/30/18 03:07 156/106 10/30/18 03:05 10/30/18 03:00 161/109 93 10/30/18 02:51 172/107 98 10/30/18 02:41 161/105 96 10/30/18 02:30 161/105 94 10/30/18 02:21 166/115 98 10/30/18 02:11 154/95 96 10/30/18 02:00 160/106 94 10/30/18 01:51 164/101 96 10/30/18 01:41 142/93 98 10/30/18 01:30 150/93 92 10/30/18 01:21 154/95 97 10/30/18 01:11 139/81 98 10/30/18 01:00 142/93 90 10/30/18 00:51 132/85 98 10/30/18 00:41 139/81 99 10/30/18 00:30 139/81 96 10/30/18 00:21 144/94 98 10/30/18 00:11 149/93 99 10/30/18 00:00 149/93 94 10/29/18 23:51 133/77 95 10/29/18 23:41 148/97 95 10/29/18 23:37 148/97 96 10/29/18 23:30 165/110 93 10/29/18 23:21 150/94 97 10/29/18 23:11 145/86 99 10/29/18 23:00 145/86 94 10/29/18 22:51 142/86 97 10/29/18 22:41 146/97 93 10/29/18 22:30 146/97 93 10/29/18 22:21 158/90 96 10/29/18 22:11 166/108 94 10/29/18 22:00 166/108 96 10/29/18 21:51 170/104 95 10/29/18 21:41 163/104 94 10/29/18 21:30 163/104 96 10/29/18 21:21 156/96 100 10/29/18 21:20 97 10/29/18 21:11 170/98 92 10/29/18 21:10 10/29/18 21:02 170/98 10/29/18 21:00 170/98 89 10/29/18 20:55 170/98 10/29/18 20:51 172/89 96 10/29/18 20:41 162/88 93 10/29/18 20:30 162/88 93 10/29/18 20:21 154/88 94 10/29/18 20:11 164/93 94 10/29/18 20:00 164/93 89 10/29/18 19:51 166/107 95 10/29/18 19:40 166/107 93 10/29/18 19:30 160/101 92 10/29/18 19:20 160/101 95 10/29/18 19:11 157/97 96 10/29/18 19:00 157/97 95 10/29/18 18:51 150/90 96 10/29/18 18:41 158/84 96 10/29/18 18:30 156/84 10/29/18 18:21 156/79 99 10/29/18 18:11 171/107 94 10/29/18 18:00 158/84 89 10/29/18 17:51 159/101 96 10/29/18 17:48 96 10/29/18 17:41 161/95 96 10/29/18 17:30 171/107 94 10/29/18 17:21 161/95 99 10/29/18 17:11 159/92 98 10/29/18 17:00 159/92 95 10/29/18 16:51 166/99 97 10/29/18 16:41 127/87 95 10/29/18 16:30 127/87 97 10/29/18 16:25 151/90 96 10/29/18 16:21 151/90 96 10/29/18 16:11 139/91 98 10/29/18 16:00 160/90 87 10/29/18 15:51 141/84 96 10/29/18 15:41 150/93 99 10/29/18 15:30 139/91 89 10/29/18 15:21 147/89 97 10/29/18 15:11 150/93 98 10/29/18 15:00 150/93 93 10/29/18 14:51 151/98 98 10/29/18 14:41 140/83 99 10/29/18 14:30 149/90 95 10/29/18 14:22 05 14:21 150/92 97 10/29/18 14:11 142/92 96 10/29/18 14:00 142/92 90 10/29/18 13:51 140/83 95 10/29/18 13:41 139/83 96 10/29/18 13:30 139/83 86 10/29/18 13:21 133/82 98 10/29/18 13:20 133/82 98 05/0819 13:11 142/88 98 10/29/18 13:00 142/88 89 10/29/18 12:51 129/86 98 10/29/18 12:41 126/64 98 10/29/18 12:40 134/85 98 10/29/18 12:30 134/85 90 10/29/18 12:21 125/57 99 10/29/18 12:11 127/69 98 10/29/18 12:00 126/64 94 10/29/18 11:51 127/69 99 10/29/18 11:41 133/72 97 10/29/18 11:30 133/72 92 10/29/18 11:20 138/79 97 10/29/18 11:11 135/75 97 10/29/18 11:00 135/75 93 10/29/18 10:51 133/73 97 10/29/18 10:41 143/93 95 - Physical Examination General: No Apparent Distress HEENT: Positive: PERRL Neck: Positive: trachea midline Cardiac: Positive: Reg Rate and Rhythm Lungs: Positive: Decreased Breath Sounds Neuro: Positive: Grossly Intact Extremities: Present: edema - Labs and Meds CBC 10/30/18 Range/Units 04:05 WBC 8.1 (4.5-11.0) K/mm3 RBC 3.45 L (3.65-5.03) M/mm3 Hgb 10.7 L (11.8-15.2) gm/dl Hct 32.1 L (35.5-45.6) % Plt Count 285 (140-440) K/mm3 Comprehensive Metabolic Panel 10/30/18 Range/Units 04:05 Sodium 145 (137-145) mmol/L Potassium 3.3 L D (3.6-5.0) mmol/L Chloride 102.1 (98-107) mmol/L Carbon Dioxide 29 (22-30) mmol/L BUN 34 H (9-20) mg/dL Creatinine 2.7 H (0.8-1.5) mg/dL Glucose 83 (75-100) mg/dL Calcium 8.6 (8.4-10.2) mg/dL - Allied health notes Allied health notes reviewed: nursing
--- NOTE | 2018-10-30 10:52 | Progress Note ---
Assessment and Plan - Patient Problems (1) Cardiorenal syndrome with renal failure Current Visit: Yes Status: Acute Plan to address problem: Patient likely has underlying chronic kidney disease with now an acute injury secondary to cardiorenal syndrome in the setting of what seems to be a CHF exacerbation. Agree with current management with diuretic treatment. Will continue to monitor closely. Overall renal function is stable. (2) Acute on chronic systolic heart failure Current Visit: Yes Status: Acute Plan to address problem: Appropriate diuresis at this time with response noted. He has slight fluctuations in serum creatinine which is expected with the Lasix administration. We'll continue to monitor closely. Echocardiogram done indicating again ejection fraction 20-25%. Further recommendations per cardiology (3) Acute and chronic respiratory failure with hypoxia Current Visit: Yes Status: Acute Plan to address problem: Patient has been extuated and is tolerating 2L O2 via NC. Further management per pulmonary recommendations. (4) Hypertensive chronic kidney disease with stage 1 through stage 4 chronic kidney disease, or unspecified chronic kidney disease Current Visit: Yes Status: Acute Plan to address problem: We'll continue to monitor on his current regimen at this time. (5) Pneumonia Current Visit: No Status: Acute Plan to address problem: Please ensure that antibiotics are dosed appropriately for his decreased creatinine clearance. Subjective Date of service: 10/30/18 Principal diagnosis: Ac hypoxemic Resp failure; Acute pulmonary edema; Poorly controlled HTN Interval history: No acute issues overnight. he was extubated and is tolerating 2L O2 via NC without any issues. Labs noted and overall renal function is stable. He has responded well to the diuretic regimen. Objective - Vital Signs Vital signs: Vital Signs - 12hr 10/29/18 10/29/18 10/29/18 22:51 23:00 23:11 Temperature Pulse Rate 104 H 104 H 107 H Pulse Rate [ Anterior Bilateral Throughout] Pulse Rate [ Apical] Pulse Rate [ From Monitor] Respiratory 17 16 16 Rate Respiratory Rate [Anterior Bilateral Throughout] Blood Pressure 142/86 145/86 145/86 O2 Sat by Pulse 97 94 99 Oximetry 10/29/18 10/29/18 10/29/18 23:21 23:30 23:37 Temperature Pulse Rate 103 H 108 H 106 H Pulse Rate [ Anterior Bilateral Throughout] Pulse Rate [ Apical] Pulse Rate [ From Monitor] Respiratory 16 19 17 Rate Respiratory Rate [Anterior Bilateral Throughout] Blood Pressure 150/94 165/110 148/97 O2 Sat by Pulse 97 93 96 Oximetry 10/29/18 10/29/18 10/30/18 23:41 23:51 00:00 Temperature 98.9 F Pulse Rate 106 H 106 H 106 H Pulse Rate [ Anterior Bilateral Throughout] Pulse Rate [ Apical] Pulse Rate [ 106 H From Monitor] Respiratory 18 16 14 Rate Respiratory Rate [Anterior Bilateral Throughout] Blood Pressure 148/97 133/77 149/93 O2 Sat by Pulse 95 95 94 Oximetry 10/30/18 10/30/18 10/30/18 00:11 00:21 00:30 Temperature Pulse Rate 100 H 102 H 99 H Pulse Rate [ Anterior Bilateral Throughout] Pulse Rate [ Apical] Pulse Rate [ From Monitor] Respiratory 12 19 13 Rate Respiratory Rate [Anterior Bilateral Throughout] Blood Pressure 149/93 144/94 139/81 O2 Sat by Pulse 99 98 96 Oximetry 10/30/18 10/30/18 10/30/18 00:41 00:51 01:00 Temperature Pulse Rate 103 H 100 H 100 H Pulse Rate [ Anterior Bilateral Throughout] Pulse Rate [ Apical] Pulse Rate [ From Monitor] Respiratory 20 13 13 Rate Respiratory Rate [Anterior Bilateral Throughout] Blood Pressure 139/81 132/85 142/93 O2 Sat by Pulse 99 98 90 Oximetry 10/30/18 10/30/18 10/30/18 01:11 01:21 01:30 Temperature Pulse Rate 100 H 102 H 102 H Pulse Rate [ Anterior Bilateral Throughout] Pulse Rate [ Apical] Pulse Rate [ From Monitor] Respiratory 12 11 L 12 Rate Respiratory Rate [Anterior Bilateral Throughout] Blood Pressure 139/81 154/95 150/93 O2 Sat by Pulse 98 97 92 Oximetry 10/30/18 10/30/18 10/30/18 01:41 01:51 02:00 Temperature Pulse Rate 102 H 102 H 103 H Pulse Rate [ Anterior Bilateral Throughout] Pulse Rate [ Apical] Pulse Rate [ 103 H From Monitor] Respiratory 13 13 12 Rate Respiratory Rate [Anterior Bilateral Throughout] Blood Pressure 142/93 164/101 160/106 O2 Sat by Pulse 98 96 94 Oximetry 10/30/18 10/30/18 10/30/18 02:11 02:21 02:30 Temperature Pulse Rate 100 H 102 H 103 H Pulse Rate [ Anterior Bilateral Throughout] Pulse Rate [ Apical] Pulse Rate [ From Monitor] Respiratory 15 13 16 Rate Respiratory Rate [Anterior Bilateral Throughout] Blood Pressure 154/95 166/115 161/105 O2 Sat by Pulse 96 98 94 Oximetry 10/30/18 10/30/18 10/30/18 02:41 02:51 03:00 Temperature Pulse Rate 105 H 102 H 103 H Pulse Rate [ Anterior Bilateral Throughout] Pulse Rate [ Apical] Pulse Rate [ From Monitor] Respiratory 15 14 11 L Rate Respiratory Rate [Anterior Bilateral Throughout] Blood Pressure 161/105 172/107 161/109 O2 Sat by Pulse 96 98 93 Oximetry 10/30/18 10/30/18 10/30/18 03:05 03:07 03:11 Temperature Pulse Rate 102 H 103 H Pulse Rate [ 103 H Anterior Bilateral Throughout] Pulse Rate [ Apical] Pulse Rate [ From Monitor] Respiratory 12 Rate Respiratory 18 Rate [Anterior Bilateral Throughout] Blood Pressure 156/106 156/106 O2 Sat by Pulse 99 Oximetry 10/30/18 10/30/18 10/30/18 03:15 03:21 03:30 Temperature Pulse Rate 103 H 104 H Pulse Rate [ 102 H Anterior Bilateral Throughout] Pulse Rate [ Apical] Pulse Rate [ From Monitor] Respiratory 12 19 Rate Respiratory 14 Rate [Anterior Bilateral Throughout] Blood Pressure 154/96 155/97 O2 Sat by Pulse 98 98 Oximetry 10/30/18 10/30/18 10/30/18 03:41 03:51 04:00 Temperature 98.8 F Pulse Rate 102 H 104 H 102 H Pulse Rate [ Anterior Bilateral Throughout] Pulse Rate [ Apical] Pulse Rate [ 102 H From Monitor] Respiratory 13 13 13 Rate Respiratory Rate [Anterior Bilateral Throughout] Blood Pressure 156/106 160/97 153/94 O2 Sat by Pulse 100 98 98 Oximetry 10/30/18 10/30/18 10/30/18 04:11 04:21 04:30 Temperature Pulse Rate 105 H 103 H 106 H Pulse Rate [ Anterior Bilateral Throughout] Pulse Rate [ Apical] Pulse Rate [ From Monitor] Respiratory 14 19 13 Rate Respiratory Rate [Anterior Bilateral Throughout] Blood Pressure 153/94 157/104 160/98 O2 Sat by Pulse 99 98 99 Oximetry 10/30/18 10/30/18 10/30/18 04:41 04:51 05:00 Temperature Pulse Rate 106 H 106 H 104 H Pulse Rate [ Anterior Bilateral Throughout] Pulse Rate [ Apical] Pulse Rate [ From Monitor] Respiratory 18 13 10 L Rate Respiratory Rate [Anterior Bilateral Throughout] Blood Pressure 160/98 155/101 155/99 O2 Sat by Pulse 100 98 99 Oximetry 10/30/18 10/30/18 10/30/18 05:11 05:21 05:30 Temperature Pulse Rate 105 H 102 H 103 H Pulse Rate [ Anterior Bilateral Throughout] Pulse Rate [ Apical] Pulse Rate [ From Monitor] Respiratory 13 15 13 Rate Respiratory Rate [Anterior Bilateral Throughout] Blood Pressure 155/99 161/99 164/103 O2 Sat by Pulse 100 100 99 Oximetry 10/30/18 10/30/18 10/30/18 05:41 05:51 06:00 Temperature Pulse Rate 104 H 102 H 103 H Pulse Rate [ Anterior Bilateral Throughout] Pulse Rate [ Apical] Pulse Rate [ 103 H From Monitor] Respiratory 13 13 12 Rate Respiratory Rate [Anterior Bilateral Throughout] Blood Pressure 161/99 168/102 156/102 O2 Sat by Pulse 98 98 98 Oximetry 10/30/18 10/30/18 10/30/18 06:11 06:21 06:30 Temperature Pulse Rate 103 H 114 H 107 H Pulse Rate [ Anterior Bilateral Throughout] Pulse Rate [ Apical] Pulse Rate [ From Monitor] Respiratory 14 23 18 Rate Respiratory Rate [Anterior Bilateral Throughout] Blood Pressure 164/103 158/103 162/103 O2 Sat by Pulse 97 94 97 Oximetry 10/30/18 10/30/18 10/30/18 06:41 06:51 07:00 Temperature Pulse Rate 105 H 106 H 106 H Pulse Rate [ Anterior Bilateral Throughout] Pulse Rate [ Apical] Pulse Rate [ From Monitor] Respiratory 16 17 15 Rate Respiratory Rate [Anterior Bilateral Throughout] Blood Pressure 172/101 167/92 172/101 O2 Sat by Pulse 96 98 98 Oximetry 10/30/18 10/30/18 10/30/18 07:11 07:21 07:30 Temperature Pulse Rate 108 H 108 H 104 H Pulse Rate [ Anterior Bilateral Throughout] Pulse Rate [ Apical] Pulse Rate [ From Monitor] Respiratory 14 18 16 Rate Respiratory Rate [Anterior Bilateral Throughout] Blood Pressure 172/101 154/95 155/96 O2 Sat by Pulse 99 97 95 Oximetry 10/30/18 10/30/18 10/30/18 07:31 07:41 07:51 Temperature 98.2 F Pulse Rate 108 H 107 H Pulse Rate [ Anterior Bilateral Throughout] Pulse Rate [ Apical] Pulse Rate [ From Monitor] Respiratory 16 18 Rate Respiratory Rate [Anterior Bilateral Throughout] Blood Pressure 172/101 169/104 O2 Sat by Pulse 99 98 Oximetry 10/30/18 10/30/18 10/30/18 08:00 08:11 08:21 Temperature Pulse Rate 107 H 110 H 109 H Pulse Rate [ Anterior Bilateral Throughout] Pulse Rate [ 116 H Apical] Pulse Rate [ 226 H From Monitor] Respiratory 19 21 19 Rate Respiratory Rate [Anterior Bilateral Throughout] Blood Pressure 161/92 161/92 165/93 O2 Sat by Pulse 95 97 95 Oximetry 10/30/18 10/30/18 10/30/18 08:30 08:41 08:51 Temperature Pulse Rate 112 H 114 H 110 H Pulse Rate [ Anterior Bilateral Throughout] Pulse Rate [ Apical] Pulse Rate [ From Monitor] Respiratory 15 14 20 Rate Respiratory Rate [Anterior Bilateral Throughout] Blood Pressure 158/94 158/94 152/90 O2 Sat by Pulse 98 98 97 Oximetry 10/30/18 10/30/18 10/30/18 09:00 09:11 09:21 Temperature Pulse Rate 113 H 112 H 111 H Pulse Rate [ Anterior Bilateral Throughout] Pulse Rate [ Apical] Pulse Rate [ From Monitor] Respiratory 19 17 17 Rate Respiratory Rate [Anterior Bilateral Throughout] Blood Pressure 154/89 154/89 128/77 O2 Sat by Pulse 96 97 97 Oximetry 10/30/18 10/30/18 10/30/18 09:30 09:41 09:51 Temperature Pulse Rate 112 H 111 H 110 H Pulse Rate [ Anterior Bilateral Throughout] Pulse Rate [ Apical] Pulse Rate [ From Monitor] Respiratory 16 17 21 Rate Respiratory Rate [Anterior Bilateral Throughout] Blood Pressure 135/69 135/69 133/80 O2 Sat by Pulse 95 94 93 Oximetry 10/30/18 10/30/18 10:00 10:03 Temperature Pulse Rate 110 H 111 H Pulse Rate [ Anterior Bilateral Throughout] Pulse Rate [ Apical] Pulse Rate [ From Monitor] Respiratory 20 Rate Respiratory Rate [Anterior Bilateral Throughout] Blood Pressure 140/79 140/79 O2 Sat by Pulse 95 Oximetry - General Appearance General appearance: well-developed, well-nourished, appears stated age, obese EENT: ATNC, PERRL Neck: no JVD, no thyromegaly Respiratory: Present: Clear to Ascultation, Normal Exam Cardiology: regular, S1S2 Gastrointestinal: normal, normoactive bowel sounds Integumentary: no rash, warm and dry Neurologic: no focal deficit, no asterixis Musculoskeletal: other (+edema ) Psychiatric: mood/affect appropriate, cooperative - Lab 10/30/18 04:05 10/30/18 04:05 Most recent lab results Calcium 8.6 mg/dL (8.4-10.2) 10/30/18 04:05 Magnesium 1.90 mg/dL (1.7-2.3) 10/30/18 04:05 241.0 mg/dL (0.1-20.0) H 10/28/18 13:37 21 mmol/L 10/28/18 13:37 - Imaging Chest x-ray: report reviewed - Allied health notes Allied health notes reviewed: nursing Medications & Allergies - Medications Allergies/Adverse Reactions: Allergies lisinopril Allergy (Verified 10/09/18 09:19) Hives Home Medications: Home Medications Medication Instructions Recorded Confirmed Last Taken Type Albuterol Sulfate [Albuterol 1 - 2 puff IH Q6H PRN 10/09/18 10/27/18 Unknown History Sulfate Hfa] Ciprofloxacin HCl [Ciprofloxacin 500 mg PO Q12HR #14 tab 10/09/18 10/27/18 Unknown Rx TAB] Furosemide [Lasix] 20 mg PO QDAY 10/09/18 10/27/18 Unknown History Furosemide [Lasix] 20 mg PO QDAY #30 tablet 10/09/18 10/27/18 10/26/18 Rx Hydralazine HCl 50 mg PO Q12H 10/09/18 10/27/18 10/26/18 History Isosorbide Dinitrate [Isordil 10 mg PO TID 10/09/18 10/27/18 Unknown History Titradose] Metoprolol [Lopressor TAB] 25 mg PO BID #60 tablet 10/09/18 10/27/18 10/26/18 Rx Simvastatin 20 mg PO DAILY #30 tablet 10/09/18 10/27/18 10/26/18 Rx hydroCHLOROthiazide [Hctz] 12.5 mg PO QDAY #30 capsule 10/09/18 10/27/18 10/26/18 Rx Active Medications: Generic Name Dose Route Start Last Admin Trade Name Freq PRN Reason Stop Dose Admin Albuterol 2.5 mg 10/27/18 08:00 10/29/18 07:12 Proventil IH 2.5 mg Q6HRT PRN Administration Shortness Of Breath Albuterol/Ipratropium 1 ampul 10/27/18 02:00 10/30/18 09:11 Duoneb *Not For Prn Use* IH 1 ampul Q6HRT FAYE Administration Aspirin 325 mg 10/27/18 10:00 10/30/18 10:04 Aspirin PO 325 mg QDAY FAYE Administration Budesonide 0.5 mg 10/27/18 08:00 10/30/18 09:10 Pulmicort IH 0.5 mg Q12HRT FAYE Administration Diphenhydramine HCl 25 mg 10/28/18 22:49 10/28/18 23:05 Benadryl IV 25 mg Q6H PRN Administration Itching Famotidine 20 mg 10/29/18 10:00 10/30/18 10:03 Pepcid PO 20 mg DAILY FAYE Administration Furosemide 40 mg 10/27/18 14:00 10/30/18 06:28 Lasix IV 40 mg Q8H FAYE Administration Heparin Sodium (Porcine) 5,000 unit 10/27/18 22:00 10/30/18 10:04 Heparin SUB-Q 5,000 unit BID FAYE Administration Hydralazine HCl 50 mg 10/27/18 02:30 10/30/18 10:03 Apresoline PO 50 mg Q12HR FAYE Administration Hydralazine HCl 10 mg 10/27/18 02:33 10/30/18 03:07 Apresoline IV 10 mg Q4H PRN Administration sb/p >150 Hydrophilic Ointment 1 applic 10/27/18 13:07 Vaseline Lip Therapy TP Q2HR PRN Dry Lips Levofloxacin/Dextrose 750 mg in 150 mls @ 100 mls/hr 10/29/18 10:00 10/29/18 09:46 Levaquin 750mg/150ml IV 11/02/18 12:00 100 mls/hr Q48HR FAYE Administration Protocol Milrinone Lactate/Dextrose 20 mg in 100 mls @ 16.841 mls/hr 10/27/18 15:00 10/30/18 10:27 Milrinone-D5w 20 Mg/100 Ml IV 10/30/18 14:59 0.375 mcg/kg/min TITR FAYE 16.841 mls/hr Administration 0.375 MCG/KG/MIN Sodium Chloride 500 mls @ 10 mls/hr 10/29/18 09:55 10/29/18 10:08 Nacl 0.9% 500 Ml IV 10 mls/hr PRN PRN Administration FOR IV ANTIBIOTICS Insulin Human Lispro 0 unit 10/30/18 11:30 Humalog SUB-Q ACHS [facility] Protocol Isosorbide Dinitrate 10 mg 10/27/18 08:00 10/30/18 10:03 Isordil Titradose PO 10 mg TID [facility] Administration Metoprolol Tartrate 50 mg 10/27/18 10:00 10/30/18 10:03 Lopressor PO 50 mg BID [facility] Administration Multi-Ingred Cream/Lotion/Oil/Oint 1 applic 10/27/18 13:07 Artificial Tears Ophth Oint OU Q4HR PRN Dry Eye(s) Pravastatin Sodium 40 mg 10/27/18 22:00 10/29/18 21:03 Pravachol PO 40 mg QHS [facility] Administration
[2018-10-30] MEDS: PRAVACHOL PO SCH (21:17)
[2018-10-31] MEDS: DUONEB *Not for PRN Use IH SCH ×4 (02:03→22:26)
[2018-10-31] MEDS: MILRINONE-D5W 20 MG/100 ML 20 MG/100 ML BAG IV SCH ×3 (02:26→19:16)
[2018-10-31 05:42] LABS: Hematocrit 32.1 % (35.5-45.6); Hemoglobin 10.8 gm/dl (11.8-15.2); Mean Corpuscular HGB Conc 34 % (32-34); Mean Corpuscular Volume 91 fl (84-94); Platelet Count 276 K/mm3 (140-440); Red Blood Count 3.51 M/mm3 (3.65-5.03); Red Cell Distribution Width 16.1 % (13.2-15.2)
[2018-10-31 06:05] LABS: Calcium 8.4 mg/dL (8.4-10.2)
[2018-10-31] MEDS ORDERED: K-DUR PO ONE ×2 (06:38→10:00)
[2018-10-31] MEDS: ISORDIL TITRADOSE PO SCH ×4 (07:19→20:10)
[2018-10-31] MEDS: LASIX IV SCH ×3 (07:20→21:47)
[2018-10-31] MEDS: PULMICORT IH SCH ×2 (07:34→22:26)
--- NOTE | 2018-10-31 07:55 | Progress Note ---
Assessment and Plan Assessment and plan: Patient is a 43 yo man with a history of hypertension, asthma, morbid obesity, cardiomyopathy and CKD who presented to [facility] ED on 10/26/18 with sob, leg swelling. He was admitted for CHF to Telemetry, he eventually got worse and was moved to ICU on BIPAP on 10/27/18 then he was intubated. He was subsequently extubated on 10/29/18. -Acute on chronic systolic heart failure, EF est 20-25%: continue to diuresis, Cardiology is following, stopped IV steroids, on Primacor IV drip -Acute hypoxic respiratory failure, failed Bipap, intubated on 10/27/18 and extubated 10/29/18 and tranferred out icu on 10/30/18: currently on nasal canula, Pulmonology is following. -Acute on chronic kidney failure, stage 3, Cardiorenal, atn +vasomotor, poa: treat the CHF, Nephrology consulted, input noted -Morbid Obesity, bmi 41.3: Vial Gauger to follow -Suspected Right Perihilar Pneumonia with suspect sepsis, poa: on Abx -Hypertensive heart disease: monitor salt intake, daily weights and i/o, treat with antihypertensives -Hypokalemia: replete and monitor bmp closely -DVT/GI prophylaxis reviewed Full code Disposition: continue inpatient care, still on iv milirone drip, needs ischemic evaluation prior to discharge and Renal function is getting better History Interval history: Patient was seen and examined. Follow-up on current diagnosis of CHF and respiratory failure. No overnight events reported to me. Imaging, nursing note, chart, labs and old chart reviewed. Respiratory failure resolving, Hospitalist Physical - Physical exam Narrative exam: Gen: morbid obese bmi 41.3, ill appearing, extubated now HEENT: NCAT, EOMI, PERRL, OP clear Neck: supple, no adenopathy, no thyromegaly, equivocal JVD CVS/Heart: Regular tachy, normal S1S2, pulses present bilaterally Chest/Lungs: tachypneic, diminished bs bilateral, Symmetrical chest expansion, good air entry bilaterally GI/Abdomen: soft, NTND, good bowel sounds, no guarding or rebound /Bladder: no suprapubic tenderness, no CVA or paraspinal tenderness Extermity/Skin: ble edema MSK: from x 4 Neuro: No new focal deficits Psych: calm - Constitutional Vitals: Temp Pulse Resp BP Pulse Ox 98.4 F 103 H 18 155/101 94 10/31/18 07:28 10/31/18 06:00 10/31/18 07:28 10/31/18 07:28 10/31/18 03:38 General appearance: Absent: mild distress Results - Labs CBC & Chem 7: 10/31/18 04:53 10/31/18 04:53 Labs: Laboratory Last Values WBC 7.7 K/mm3 (4.5-11.0) 10/31/18 04:53 RBC 3.51 M/mm3 (3.65-5.03) L 10/31/18 04:53 Hgb 10.8 gm/dl (11.8-15.2) L 10/31/18 04:53 Hct 32.1 % (35.5-45.6) L 10/31/18 04:53 MCV 91 fl (84-94) 10/31/18 04:53 MCH 31 pg (28-32) 10/31/18 04:53 MCHC 34 % (32-34) 10/31/18 04:53 RDW 16.1 % (13.2-15.2) H 10/31/18 04:53 Plt Count 276 K/mm3 (140-440) 10/31/18 04:53 679.01 ng/mlDDU (0-234) H 10/27/18 14:34 POC ABG pH 7.342 (7.35-7.45) L 10/29/18 12:32 POC ABG pCO2 53.3 (35-45) H 10/29/18 12:32 POC ABG pO2 109 (80-105) H 10/29/18 12:32 POC ABG HCO3 28.8 (22-26 mml/L) 10/29/18 12:32 POC ABG Total CO2 30 (23-27mmol/L) 10/29/18 12:32 POC ABG O2 Sat 98 10/29/18 12:32 POC ABG Base Excess 3 ((-2) - (+3)mmol/L) 10/29/18 12:32 30 % 10/29/18 12:32 Sodium 143 mmol/L (137-145) 10/31/18 04:53 Potassium 3.4 mmol/L (3.6-5.0) L 10/31/18 04:53 Chloride 101.0 mmol/L (98-107) 10/31/18 04:53 Carbon Dioxide 32 mmol/L (22-30) H 10/31/18 04:53 13 mmol/L 10/31/18 04:53 BUN 23 mg/dL (9-20) H 10/31/18 04:53 2.2 mg/dL (0.8-1.5) H 10/31/18 04:53 Estimated GFR 40 ml/min 10/31/18 04:53 10 % 10/31/18 04:53 Glucose 89 mg/dL (75-100) 10/31/18 04:53 POC Glucose 90 (70-105) 10/31/18 07:11 Lactic Acid 0.80 mmol/L (0.7-2.0) 10/26/18 22:56 Calcium 8.4 mg/dL (8.4-10.2) 10/31/18 04:53 Magnesium 1.90 mg/dL (1.7-2.3) 10/30/18 04:05 0.40 mg/dL (0.1-1.2) 10/28/18 03:59 AST 29 units/L (5-40) 10/28/18 03:59 ALT 25 units/L (7-56) 10/28/18 03:59 45 units/L (35-129) 10/28/18 03:59 215 units/L (55-170) H 10/28/18 10:05 CK-MB (CK-2) 7.7 ng/mL (0.0-4.0) H 10/28/18 10:05 CK-MB (CK-2) Rel Index 3.5 (0-4) 10/28/18 10:05 0.122 ng/mL (0.00-0.029) H* D 10/28/18 10:05 4.30 mg/dL (0.00-1.30) H 10/27/18 14:34 NT-Pro-B Natriuret Pep 8302 pg/mL (0-450) H 10/26/18 18:21 6.1 g/dL (6.3-8.2) L 10/28/18 03:59 3.2 g/dL (3.9-5) L 10/28/18 03:59 1.1 % 10/28/18 03:59 Triglycerides 80 mg/dL (2-149) 10/28/18 00:09 Cholesterol 151 mg/dL (50-199) 10/28/18 00:09 80 mg/dL (50-130) 10/28/18 00:09 59 mg/dL (40-59) 10/28/18 00:09 2.55 % 10/28/18 00:09 Yellow (Yellow) 10/28/18 08:43 Slightly-cloudy (Clear) 10/28/18 08:43 5.0 (5.0-7.0) 10/28/18 08:43 Ur Specific [place] 1.014 (1.003-1.030) 10/28/18 08:43 <15 mg/dl mg/dL (Negative) 10/28/18 08:43 Neg mg/dL (Negative) 10/28/18 08:43 Neg mg/dL (Negative) 10/28/18 08:43 Neg (Negative) 10/28/18 08:43 Neg (Negative) 10/28/18 08:43 Neg (Negative) 10/28/18 08:43 < 2.0 mg/dL (<2.0) 10/28/18 08:43 Ur Leukocyte Esterase Neg (Negative) 10/28/18 08:43 2.0 /HPF (0.0-6.0) 10/28/18 08:43 2.0 /HPF (0.0-6.0) 10/28/18 08:43 1+ /HPF (Negative) 10/28/18 08:43 Few /HPF 10/28/18 08:43 241.0 mg/dL (0.1-20.0) H 10/28/18 13:37 21 mmol/L 10/28/18 13:37 20.1 mmolL (110-250) L 10/28/18 13:37 Active Medications - Current Medications Current Medications: Generic Name Dose Route Start Last Admin Trade Name Freq PRN Reason Stop Dose Admin Albuterol 2.5 mg 10/27/18 08:00 10/29/18 07:12 Proventil IH 2.5 mg Q6HRT PRN Administration Shortness Of Breath Albuterol/Ipratropium 1 ampul 10/27/18 02:00 10/31/18 07:34 Duoneb *Not For Prn Use* IH 1 ampul Q6HRT FAYE Administration Aspirin 325 mg 10/27/18 10:00 10/30/18 10:04 Aspirin PO 325 mg QDAY FAYE Administration Budesonide 0.5 mg 10/27/18 08:00 10/31/18 07:34 Pulmicort IH 0.5 mg Q12HRT FAYE Administration Diphenhydramine HCl 25 mg 10/28/18 22:49 10/28/18 23:05 Benadryl IV 25 mg Q6H PRN Administration Itching Famotidine 20 mg 10/29/18 10:00 10/30/18 10:03 Pepcid PO 20 mg DAILY FAYE Administration Furosemide 40 mg 10/27/18 14:00 10/31/18 07:20 Lasix IV 40 mg Q8H FAYE Administration Heparin Sodium (Porcine) 5,000 unit 10/27/18 22:00 10/30/18 21:18 Heparin SUB-Q 5,000 unit BID FAYE Administration Hydralazine HCl 50 mg 10/27/18 02:30 10/30/18 21:17 Apresoline PO 50 mg Q12HR FAYE Administration Hydralazine HCl 10 mg 10/27/18 02:33 10/30/18 16:47 Apresoline IV 10 mg Q4H PRN Administration sb/p >150 Hydrophilic Ointment 1 applic 10/27/18 13:07 Vaseline Lip Therapy TP Q2HR PRN Dry Lips Levofloxacin/Dextrose 750 mg in 150 mls @ 100 mls/hr 10/29/18 10:00 10/29/18 09:46 Levaquin 750mg/150ml IV 11/02/18 12:00 100 mls/hr Q48HR FAYE Administration Protocol Sodium Chloride 500 mls @ 10 mls/hr 10/29/18 09:55 10/29/18 10:08 Nacl 0.9% 500 Ml IV 10 mls/hr PRN PRN Administration FOR IV ANTIBIOTICS Milrinone Lactate/Dextrose 20 mg in 100 mls @ 16.841 mls/hr 10/30/18 16:00 10/31/18 02:26 Milrinone-D5w 20 Mg/100 Ml IV 11/02/18 15:59 0.375 mcg/kg/min TITR FAYE 16.841 mls/hr Administration 0.375 MCG/KG/MIN Insulin Human Lispro 0 unit 10/30/18 11:30 10/30/18 21:22 Humalog SUB-Q Not Given ACHS [facility] Protocol Isosorbide Dinitrate 10 mg 10/27/18 08:00 10/31/18 07:19 Isordil Titradose PO Not Given TID [facility] Metoprolol Tartrate 50 mg 10/27/18 10:00 10/30/18 21:17 Lopressor PO 50 mg BID FAYE Administration Multi-Ingred Cream/Lotion/Oil/Oint 1 applic 10/27/18 13:07 Artificial Tears Ophth Oint OU Q4HR PRN Dry Eye(s) Pravastatin Sodium 40 mg 10/27/18 22:00 10/30/18 21:17 Pravachol PO 40 mg QHS FAYE Administration Nutrition/Malnutrition Assess - Dietary Evaluation Nutrition/Malnutrition Findings: Nutrition Notes Start: 10/28/18 08:24 Freq: Status: Active Protocol: Document 10/30/18 08:24 CP (Rec: 10/30/18 08:26 CP [id number]) Co-Sign 10/30/18 08:24 LP Nutrition Notes Initial or Follow up Brief Note Current Diagnosis Hypertension,Heart Failure Other Pertinent Diagnosis Asthma, dyspnea Current Diet Cardiac Subjective/Other Information F/U for TF to start/TF tolerance. Pt diet advanced to cardiac. Pt was extubated and diet was advanced this morning. Nutrition Intervention Follow-Up By: 11/03/18 Additional Comments F/U: PO intakes
[2018-10-31] MEDS: HumaLOG SUB-Q SCH ×4 (08:24→21:44)
--- NOTE | 2018-10-31 08:56 | Progress Note ---
Assessment and Plan Decompensated systolic heart failure EF 20-25% by echo this admission Volume overload Chronic renal failure Respiratory failure Hypertension Hypokalemia Continue aggressive medial therapy for systolic heart failure to include a trial of IV milrinone. Further cardiac evaluation with a persantine stress thallium before discharge. Subjective Date of service: 10/31/18 Principal diagnosis: Ac hypoxemic Resp failure; Acute pulmonary edema; Poorly controlled HTN Interval history: Patient is resting in bed comfortably. He reports he is diuresing well. Short burst of NSVT seen on telemetry. It's reported the patient remained asymptomatic. Objective Vital Signs Temp Pulse Pulse Pulse Pulse Resp Resp 10/31/18 07:28 98.4 F 18 10/31/18 06:00 103 H 10/31/18 03:38 98.6 F 101 H 18 10/31/18 02:15 101 H 20 10/31/18 02:05 103 H 20 10/30/18 23:20 98.6 F 113 H 16 10/30/18 20:21 107 H 18 10/30/18 20:10 111 H 18 10/30/18 19:40 98.4 F 107 H 18 10/30/18 18:42 98.7 F 10/30/18 18:26 105 H 18 10/30/18 18:00 105 H 18 10/30/18 17:51 105 H 21 10/30/18 17:41 106 H 19 10/30/18 17:30 101 H 20 10/30/18 17:21 109 H 20 10/30/18 17:11 102 H 19 10/30/18 17:00 98 H 14 10/30/18 16:51 95 H 18 10/30/18 16:47 96 H 10/30/18 16:41 95 H 15 10/30/18 16:30 97 H 13 10/30/18 16:21 98 H 19 10/30/18 16:11 93 H 16 10/30/18 16:06 98.7 F 10/30/18 16:00 94 H 96 H 96 H 12 10/30/18 15:51 96 H 16 10/30/18 15:41 95 H 15 10/30/18 15:31 96 H 16 10/30/18 15:21 101 H 15 10/30/18 15:11 93 H 14 05/09/19 15:00 94 H 13 10/30/18 14:51 92 H 14 10/30/18 14:41 92 H 16 10/30/18 14:35 102 H 20 10/30/18 14:30 93 H 14 10/30/18 14:21 98 H 17 10/30/18 14:20 104 H 18 10/30/18 14:11 97 H 11 L 10/30/18 14:00 97 H 22 10/30/18 13:53 97 H 10/30/18 13:51 98 H 18 10/30/18 13:41 99 H 16 10/30/18 13:30 100 H 14 10/30/18 13:21 99 H 14 10/30/18 13:11 102 H 21 10/30/18 13:00 102 H 14 10/30/18 12:51 107 H 21 10/30/18 12:41 111 H 10 L 10/30/18 12:30 109 H 16 10/30/18 12:21 110 H 18 10/30/18 12:11 109 H 18 10/30/18 12:00 111 H 100 H 100 H 18 10/30/18 11:51 113 H 22 10/30/18 11:41 115 H 18 10/30/18 11:30 114 H 17 10/30/18 11:23 98.3 F 10/30/18 11:21 112 H 16 10/30/18 11:11 114 H 19 10/30/18 11:00 116 H 22 10/30/18 10:51 114 H 19 10/30/18 10:41 116 H 19 10/30/18 10:31 110 H 15 10/30/18 10:21 113 H 23 10/30/18 10:11 117 H 12 10/30/18 10:03 111 H 10/30/18 10:00 110 H 20 10/30/18 09:51 110 H 21 10/30/18 09:41 111 H 17 10/30/18 09:30 112 H 16 10/30/18 09:25 112 H 18 10/30/18 09:21 111 H 17 10/30/18 09:11 112 H 17 10/30/18 09:10 112 H 20 10/30/18 09:00 113 H 19 BP Pulse Ox 10/31/18 07:28 155/101 10/31/18 06:00 10/31/18 03:38 161/92 94 10/31/18 02:15 10/31/18 02:05 10/30/18 23:20 134/75 93 10/30/18 20:21 98 10/30/18 20:10 10/30/18 19:40 133/71 87 10/30/18 18:42 10/30/18 18:26 144/68 94 10/30/18 18:00 142/69 97 10/30/18 17:51 166/74 99 10/30/18 17:41 159/88 100 10/30/18 17:30 159/88 98 10/30/18 17:21 174/93 95 10/30/18 17:11 152/91 92 10/30/18 17:00 152/91 97 10/30/18 16:51 180/97 97 10/30/18 16:47 180/97 10/30/18 16:41 167/100 96 10/30/18 16:30 174/96 99 10/30/18 16:21 179/93 85 10/30/18 16:11 164/94 96 10/30/18 16:06 10/30/18 16:00 164/94 93 10/30/18 15:51 162/95 97 10/30/18 15:41 152/88 97 10/30/18 15:31 152/88 97 10/30/18 15:21 149/82 97 10/30/18 15:11 132/77 98 10/30/18 15:00 132/77 98 10/30/18 14:51 146/89 98 10/30/18 14:41 154/79 97 10/30/18 14:35 10/30/18 14:30 154/79 98 10/30/18 14:21 152/89 100 10/30/18 14:20 10/30/18 14:11 163/88 99 10/30/18 14:00 163/88 98 10/30/18 13:53 183/105 10/30/18 13:51 183/105 98 10/30/18 13:41 168/109 98 10/30/18 13:30 168/109 99 10/30/18 13:21 158/100 96 10/30/18 13:11 151/92 96 10/30/18 13:00 151/92 96 10/30/18 12:51 150/93 96 10/30/18 12:41 152/90 99 10/30/18 12:30 152/90 97 10/30/18 12:21 160/97 98 10/30/18 12:11 156/96 100 10/30/18 12:00 156/96 99 10/30/18 11:51 151/88 98 10/30/18 11:41 154/97 98 10/30/18 11:30 154/97 98 10/30/18 11:23 10/30/18 11:21 153/84 99 10/30/18 11:11 153/84 99 10/30/18 11:00 153/84 99 10/30/18 10:51 146/85 98 10/30/18 10:41 165/94 99 10/30/18 10:31 165/94 98 10/30/18 10:21 154/97 96 10/30/18 10:11 140/79 96 10/30/18 10:03 140/79 10/30/18 10:00 140/79 95 10/30/18 09:51 133/80 93 10/30/18 09:41 135/69 94 10/30/18 09:30 135/69 95 10/30/18 09:25 10/30/18 09:21 128/77 97 10/30/18 09:11 154/89 97 10/30/18 09:10 10/30/18 09:00 154/89 96 - Physical Examination General: No Apparent Distress HEENT: Positive: PERRL Neck: Positive: trachea midline Cardiac: Positive: Tachycardia Lungs: Positive: Decreased Breath Sounds Neuro: Positive: Grossly Intact Abdomen: Positive: Soft Extremities: Present: +2 Edema - Labs and Meds CBC 10/31/18 Range/Units 04:53 WBC 7.7 (4.5-11.0) K/mm3 RBC 3.51 L (3.65-5.03) M/mm3 Hgb 10.8 L (11.8-15.2) gm/dl Hct 32.1 L (35.5-45.6) % Plt Count 276 (140-440) K/mm3 Comprehensive Metabolic Panel 10/31/18 Range/Units 04:53 Sodium 143 (137-145) mmol/L Potassium 3.4 L (3.6-5.0) mmol/L Chloride 101.0 (98-107) mmol/L Carbon Dioxide 32 H (22-30) mmol/L BUN 23 H (9-20) mg/dL Creatinine 2.2 H (0.8-1.5) mg/dL Glucose 89 (75-100) mg/dL Calcium 8.4 (8.4-10.2) mg/dL - Allied health notes Allied health notes reviewed: nursing
--- NOTE | 2018-10-31 09:01 | Progress Note ---
Assessment and Plan Acute hypoxemic respiratory failure s/p MVS Presumptive diagnosis of acute pulmonary edema. HFrEF (20-25%) Poorly controlled hypertension. Morbid obesity. Acute on chronic kidney injury. - continue empiric Levaquin monotherapy (5 days of empiric treatment) then stop -continue ionotropic support - continue bronchodilators with pulmonary hygiene per RT - continue VTE prophylaxis - continue to wean supplemental oxygen to keep O2 sats 88-90% - ABGs/CXR in am - Continue cardioprotective measures -Continue heart failure measures--BiDil - Diuresis per nephrology - Replete electrolytes as indicated - Monitor renal indices closely - Avoid nephrotoxic agents, adjust all medications for CrCL - Strict intake and output monitoring - Accuchecks with glycemic control. Target glucose of 140-180 mg/dL -PT/OT, increase activity -Out patient sleep study -weight loss and life style modifications - Influenza and pneumonia vaccination per protocol ..care plan discussed at length with RN/RT at the bedside ..discussed in ICU-IDT rounds ... Plan to transfer to telemetry on fixed dose milrinone PROGNOSIS: FAIR CODE STATUS: FULL CODE The high probability of a clinically significant, sudden or life-threatening deterioration of the [respiratory, cardiovascular, renal] system(s) required my full and direct attention, intervention and personal management. The aggregate critical care time was [32] minutes without overlap. Time includes spent on; [x] Data Review and interpretation [x] Patient assessment and monitoring of vital signs [x] Documentation [x] Medication orders and management Subjective Date of service: 10/31/18 Principal diagnosis: Ac hypoxemic Resp failure; Acute pulmonary edema; Poorly controlled HTN Interval history: Patient is seen today for: Acute hypoxemic respiratory failure; Presumptive diagnosis of acute pulmonary edema; Poorly controlled hypertension. Seen and examined at bedside; 24hour events reviewed; nursing and respiratory care staff consulted; no adverse overnight events reported to me; extubated on 3L of oxygen via NC, making urine; denies acute chest pains or palpitations; Less SOB; no emesis or overt aspiration; remains on milrinone drip, on a cardiac diet Objective Vital Signs - 12hr 10/30/18 10/31/18 10/31/18 23:20 02:05 02:15 Temperature 98.6 F Pulse Rate 113 H Pulse Rate [ 103 H 101 H Anterior Bilateral Throughout] Respiratory 16 Rate Respiratory 20 20 Rate [Anterior Bilateral Throughout] Blood Pressure 134/75 O2 Sat by Pulse 93 Oximetry 10/31/18 10/31/18 10/31/18 03:38 06:00 07:28 Temperature 98.6 F 98.4 F Pulse Rate 101 H 103 H Pulse Rate [ Anterior Bilateral Throughout] Respiratory 18 18 Rate Respiratory Rate [Anterior Bilateral Throughout] Blood Pressure 161/92 155/101 O2 Sat by Pulse 94 Oximetry Constitutional: no acute distress, alert, other (middle aged obese AAM, normocephalic and atraumatic) Eyes: non-icteric ENT: oropharynx moist Neck: supple, no lymphadenopathy, no JVD, other (large neck circumference) Effort: mildly labored Ascultation: Bilateral: rales (improved) Percussion: Bilateral: not dull Cardiovascular: regular rate and rhythm, other (S1,S2) Gastrointestinal: normoactive bowel sounds, soft, non-tender, non-distended Integumentary: normal Extremities: no cyanosis, pulses normal, no ischemia or petechiae, edema (1+) Neurologic: normal mental status, non-focal exam, pupils equal and round, CN II- XII normal, motor strength normal and Psychiatric: mood appropriate, affect normal CBC and BMP: 11/01/18 04:41 11/03/18 11:53 ABG, PT/INR, D-dimer: ABG POC ABG pH 7.342 (7.35-7.45) L 10/29/18 12:32 POC ABG pCO2 53.3 (35-45) H 10/29/18 12:32 POC ABG pO2 109 (80-105) H 10/29/18 12:32 POC ABG HCO3 28.8 (22-26 mml/L) 10/29/18 12:32 POC ABG Total CO2 30 (23-27mmol/L) 10/29/18 12:32 POC ABG O2 Sat 98 10/29/18 12:32 PT/INR, D-dimer 679.01 ng/mlDDU (0-234) H 10/27/18 14:34 Abnormal lab findings: Abnormal Labs 10/26/18 10/26/18 10/26/18 18:21 18:21 22:56 WBC RBC Hgb 11.7 L Hct RDW 17.0 H D-Dimer POC ABG pH POC ABG pCO2 POC ABG pO2 Potassium Carbon Dioxide BUN 21 H Creatinine 2.4 H Glucose 106 H POC Glucose Total Creatine Kinase 287 H CK-MB (CK-2) Troponin T C-Reactive Protein NT-Pro-B Natriuret Pep 8302 H Total Protein 5.6 L Albumin 2.9 L Urine Creatinine Urine Chloride 10/27/18 10/27/18 10/27/18 02:58 03:00 03:00 WBC 12.6 H RBC Hgb Hct RDW 16.5 H D-Dimer POC ABG pH 7.301 L POC ABG pCO2 45.9 H POC ABG pO2 Potassium Carbon Dioxide 20 L BUN 21 H Creatinine 2.6 H Glucose 215 H POC Glucose Total Creatine Kinase CK-MB (CK-2) Troponin T C-Reactive Protein NT-Pro-B Natriuret Pep Total Protein Albumin Urine Creatinine Urine Chloride 10/27/18 10/27/18 10/27/18 12:04 14:34 14:34 WBC RBC Hgb Hct RDW D-Dimer 679.01 H POC ABG pH POC ABG pCO2 POC ABG pO2 Potassium Carbon Dioxide BUN Creatinine Glucose POC Glucose 124 H Total Creatine Kinase CK-MB (CK-2) Troponin T C-Reactive Protein 4.30 H NT-Pro-B Natriuret Pep Total Protein Albumin Urine Creatinine Urine Chloride 10/27/18 10/27/18 10/27/18 15:30 17:52 18:30 WBC RBC Hgb Hct RDW D-Dimer POC ABG pH 7.336 L POC ABG pCO2 50.7 H POC ABG pO2 Potassium Carbon Dioxide BUN Creatinine Glucose POC Glucose 123 H 125 H Total Creatine Kinase CK-MB (CK-2) Troponin T C-Reactive Protein NT-Pro-B Natriuret Pep Total Protein Albumin Urine Creatinine Urine Chloride 10/27/18 10/28/18 10/28/18 23:52 00:09 03:38 WBC RBC Hgb Hct RDW D-Dimer POC ABG pH POC ABG pCO2 51.3 H POC ABG pO2 Potassium Carbon Dioxide BUN Creatinine Glucose POC Glucose 113 H Total Creatine Kinase 229 H CK-MB (CK-2) 6.7 H Troponin T 0.065 H C-Reactive Protein NT-Pro-B Natriuret Pep Total Protein Albumin Urine Creatinine Urine Chloride 10/28/18 10/28/18 10/28/18 03:59 03:59 06:39 WBC RBC Hgb Hct RDW 16.8 H D-Dimer POC ABG pH POC ABG pCO2 POC ABG pO2 Potassium Carbon Dioxide BUN 31 H Creatinine 3.0 H Glucose 127 H POC Glucose 109 H Total Creatine Kinase CK-MB (CK-2) Troponin T C-Reactive Protein NT-Pro-B Natriuret Pep Total Protein 6.1 L Albumin 3.2 L Urine Creatinine Urine Chloride 10/28/18 10/28/18 10/28/18 10:05 11:11 13:37 WBC RBC Hgb Hct RDW D-Dimer POC ABG pH POC ABG pCO2 POC ABG pO2 Potassium Carbon Dioxide BUN Creatinine Glucose POC Glucose 111 H Total Creatine Kinase 215 H CK-MB (CK-2) 7.7 H Troponin T 0.122 H* D C-Reactive Protein NT-Pro-B Natriuret Pep Total Protein Albumin Urine Creatinine 241.0 H Urine Chloride 20.1 L 10/28/18 10/29/18 10/29/18 17:13 03:37 03:59 WBC 12.4 H RBC 3.63 L Hgb 11.0 L Hct 34.1 L RDW 17.0 H D-Dimer POC ABG pH 7.319 L 7.276 L POC ABG pCO2 55.8 H 63.5 H POC ABG pO2 113 H 119 H Potassium Carbon Dioxide BUN Creatinine Glucose POC Glucose Total Creatine Kinase CK-MB (CK-2) Troponin T C-Reactive Protein NT-Pro-B Natriuret Pep Total Protein Albumin Urine Creatinine Urine Chloride 10/29/18 10/30/18 10/30/18 12:32 04:05 04:05 WBC RBC 3.45 L Hgb 10.7 L Hct 32.1 L RDW 16.1 H D-Dimer POC ABG pH 7.342 L POC ABG pCO2 53.3 H POC ABG pO2 109 H Potassium 3.3 L D Carbon Dioxide BUN 34 H Creatinine 2.7 H Glucose POC Glucose Total Creatine Kinase CK-MB (CK-2) Troponin T C-Reactive Protein NT-Pro-B Natriuret Pep Total Protein Albumin Urine Creatinine Urine Chloride 10/30/18 10/31/18 10/31/18 11:15 04:53 04:53 WBC RBC 3.51 L Hgb 10.8 L Hct 32.1 L RDW 16.1 H D-Dimer POC ABG pH POC ABG pCO2 POC ABG pO2 Potassium 3.4 L Carbon Dioxide 32 H BUN 23 H Creatinine 2.2 H Glucose POC Glucose 128 H Total Creatine Kinase CK-MB (CK-2) Troponin T C-Reactive Protein NT-Pro-B Natriuret Pep Total Protein Albumin Urine Creatinine Urine Chloride Allied health notes reviewed: nursing
[2018-10-31] MEDS: ASPIRIN PO SCH (09:35)
[2018-10-31] MEDS: HEPARIN SUB-Q SCH ×2 (09:36→21:44)
[2018-10-31] MEDS: LOPRESSOR PO SCH (09:36)
[2018-10-31] MEDS: APRESOLINE PO SCH ×3 (09:37→22:59)
[2018-10-31] MEDS: LEVAQUIN 750MG/150ML 750 MG/150 ML BAG IV SCH (10:09)
[2018-10-31] MEDS: PEPCID PO SCH (10:35)
--- NOTE | 2018-10-31 16:39 | Progress Note ---
Assessment and Plan - Patient Problems (1) Acute and chronic respiratory failure with hypoxia Current Visit: Yes Status: Acute Plan to address problem: Improved. Continue management by traffic control flagger (2) Acute on chronic systolic heart failure Current Visit: Yes Status: Acute Plan to address problem: Continue diuresis. Milrinone per Biofuels Product Manager. Follow up intake and output and monitor electrolytes and function (3) Cardiorenal syndrome with renal failure Current Visit: Yes Status: Acute Plan to address problem: Acute kidney injury acute cardiorenal syndrome. Kidney function is improving. Follow up renal function and electrolytes on diuretics (4) Hypertensive chronic kidney disease with stage 1 through stage 4 chronic kidney disease, or unspecified chronic kidney disease Current Visit: Yes Status: Acute Plan to address problem: Blood pressure is improving. 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 Supplement potassium and follow-up level Subjective Date of service: 10/31/18 Principal diagnosis: Ac hypoxemic Resp failure; Acute pulmonary edema; Poorly controlled HTN Interval history: Patient seen lying in bed. No new complaints. He is still coughing productive of green sputum. No hemoptysis. Shortness of breath improved. He denies pain or nausea. Objective - Exam Narrative Exam: Middle-age -[place] male lying in bed in no acute distress HEENT: NCAT, pink oral mucous membrane Neck: Supple, no venous distention CVS: S1S2 RRR with no murmur, rub or gallop Chest: Breath sounds are diminished in bases Abdomen: Protuberant, soft, nontender, no organomegaly, bowel sounds are present Extremities: 2+ edema extending to the thighs Genitourinary deferred hopkins draining clear urine Skin warm and dry Neuro: Awake, alert no focal deficits - Vital Signs Vital signs: Vital Signs - 12hr 10/31/18 10/31/18 10/31/18 06:00 07:28 07:34 Temperature 98.4 F Pulse Rate 103 H Pulse Rate [ 100 H Anterior Bilateral Throughout] Respiratory 18 Rate Respiratory 20 Rate [Anterior Bilateral Throughout] Blood Pressure 155/101 O2 Sat by Pulse 97 Oximetry 10/31/18 10/31/18 07:44 11:45 Temperature 97.7 F Pulse Rate Pulse Rate [ 105 H Anterior Bilateral Throughout] Respiratory 18 Rate Respiratory 20 Rate [Anterior Bilateral Throughout] Blood Pressure 146/91 O2 Sat by Pulse Oximetry - Lab 10/31/18 04:53 10/31/18 04:53 Most recent lab results Calcium 8.4 mg/dL (8.4-10.2) 10/31/18 04:53 Magnesium 1.90 mg/dL (1.7-2.3) 10/30/18 04:05 241.0 mg/dL (0.1-20.0) H 10/28/18 13:37 21 mmol/L 10/28/18 13:37 Medications & Allergies - Medications Allergies/Adverse Reactions: Allergies lisinopril Allergy (Verified 10/09/18 09:19) Hives Home Medications: Home Medications Medication Instructions Recorded Confirmed Last Taken Type Albuterol Sulfate [Albuterol 1 - 2 puff IH Q6H PRN 10/09/18 10/27/18 Unknown History Sulfate Hfa] Ciprofloxacin HCl [Ciprofloxacin 500 mg PO Q12HR #14 tab 10/09/18 10/27/18 Unknown Rx TAB] Furosemide [Lasix] 20 mg PO QDAY 10/09/18 10/27/18 Unknown History Furosemide [Lasix] 20 mg PO QDAY #30 tablet 10/09/18 10/27/18 10/26/18 Rx Hydralazine HCl 50 mg PO Q12H 10/09/18 10/27/18 10/26/18 History Isosorbide Dinitrate [Isordil 10 mg PO TID 10/09/18 10/27/18 Unknown History Titradose] Metoprolol [Lopressor TAB] 25 mg PO BID #60 tablet 10/09/18 10/27/18 10/26/18 Rx Simvastatin 20 mg PO DAILY #30 tablet 10/09/18 10/27/18 10/26/18 Rx hydroCHLOROthiazide [Hctz] 12.5 mg PO QDAY #30 capsule 10/09/18 10/27/18 10/26/18 Rx Active Medications: Generic Name Dose Route Start Last Admin Trade Name Freq PRN Reason Stop Dose Admin Albuterol 2.5 mg 10/27/18 08:00 10/29/18 07:12 Proventil IH 2.5 mg Q6HRT PRN Administration Shortness Of Breath Albuterol/Ipratropium 1 ampul 10/27/18 02:00 10/31/18 14:05 Duoneb *Not For Prn Use* IH 1 ampul Q6HRT FAYE Administration Aspirin 325 mg 10/27/18 10:00 10/31/18 09:35 Aspirin PO 325 mg QDAY FAYE Administration Budesonide 0.5 mg 10/27/18 08:00 10/31/18 07:34 Pulmicort IH 0.5 mg Q12HRT FAYE Administration Carvedilol 6.25 mg 10/31/18 22:00 Coreg PO BID FAYE Diphenhydramine HCl 25 mg 10/28/18 22:49 10/28/18 23:05 Benadryl IV 25 mg Q6H PRN Administration Itching Famotidine 20 mg 10/29/18 10:00 10/30/18 10:03 Pepcid PO 20 mg DAILY FAYE Administration Furosemide 40 mg 10/27/18 14:00 10/31/18 07:20 Lasix IV 40 mg Q8H FAYE Administration Heparin Sodium (Porcine) 5,000 unit 10/27/18 22:00 10/31/18 09:36 Heparin SUB-Q 5,000 unit BID FAYE Administration Hydralazine HCl 50 mg 10/27/18 02:30 10/31/18 09:37 Apresoline PO 50 mg Q12HR FAYE Administration Hydralazine HCl 10 mg 10/27/18 02:33 10/30/18 16:47 Apresoline IV 10 mg Q4H PRN Administration sb/p >150 Hydrophilic Ointment 1 applic 10/27/18 13:07 Vaseline Lip Therapy TP Q2HR PRN Dry Lips Levofloxacin/Dextrose 750 mg in 150 mls @ 100 mls/hr 10/29/18 10:00 10/31/18 10:09 Levaquin 750mg/150ml IV 11/02/18 12:00 100 mls/hr Q48HR FAYE Administration Protocol Sodium Chloride 500 mls @ 10 mls/hr 10/29/18 09:55 10/29/18 10:08 Nacl 0.9% 500 Ml IV 10 mls/hr PRN PRN Administration FOR IV ANTIBIOTICS Milrinone Lactate/Dextrose 20 mg in 100 mls @ 16.841 mls/hr 10/30/18 16:00 10/31/18 13:34 Milrinone-D5w 20 Mg/100 Ml IV 11/02/18 15:59 0.375 mcg/kg/min TITR FAYE 16.841 mls/hr Administration 0.375 MCG/KG/MIN Insulin Human Lispro 0 unit 10/30/18 11:30 10/31/18 13:41 Humalog SUB-Q Not Given ACHS [facility] Protocol Isosorbide Dinitrate 10 mg 10/27/18 08:00 10/31/18 10:09 Isordil Titradose PO 10 mg TID FAYE Administration Multi-Ingred Cream/Lotion/Oil/Oint 1 applic 10/27/18 13:07 Artificial Tears Ophth Oint OU Q4HR PRN Dry Eye(s) Pravastatin Sodium 40 mg 10/27/18 22:00 10/30/18 21:17 Pravachol PO 40 mg QHS FAYE Administration
[2018-10-31] MEDS: COREG PO SCH (21:44)
[2018-10-31] MEDS: PRAVACHOL PO SCH (21:44)
[2018-11-01] MEDS: MILRINONE-D5W 20 MG/100 ML 20 MG/100 ML BAG IV SCH ×4 (01:31→21:35)
[2018-11-01] MEDS: DUONEB *Not for PRN Use IH SCH ×4 (04:10→19:41)
[2018-11-01] MEDS: APRESOLINE IV PRN (04:24)
[2018-11-01] MEDS: LASIX IV SCH ×3 (05:41→21:30)
[2018-11-01 06:04] LABS: Hematocrit 33.4 % (35.5-45.6); Hemoglobin 11.1 gm/dl (11.8-15.2); Mean Corpuscular HGB Conc 33 % (32-34); Mean Corpuscular Volume 91 fl (84-94); Platelet Count 293 K/mm3 (140-440); Red Blood Count 3.66 M/mm3 (3.65-5.03)
[2018-11-01 06:27] LABS: Calcium 8.7 mg/dL (8.4-10.2)
[2018-11-01] MEDS: ISORDIL TITRADOSE PO SCH ×3 (07:43→21:29)
[2018-11-01] MEDS: PULMICORT IH SCH ×2 (07:45→19:41)
--- NOTE | 2018-11-01 08:39 | Progress Note ---
Assessment and Plan - Patient Problems (1) Cardiorenal syndrome with renal failure Current Visit: Yes Status: Acute Plan to address problem: Acute kidney injury acute cardiorenal syndrome. Kidney function is improving on milrinone gtt and lasix 40mg q8hr. Follow up renal function and electrolytes on diuretics (2) Acute and chronic respiratory failure with hypoxia Current Visit: Yes Status: Acute Plan to address problem: Improved. Continue management by insulation cupola operator (3) Acute on chronic systolic heart failure Current Visit: Yes Status: Acute Plan to address problem: Continue diuresis. Milrinone per Speck Dyer. Follow up intake and output and monitor electrolytes and function (4) Hypertensive chronic kidney disease with stage 1 through stage 4 chronic kidney disease, or unspecified chronic kidney disease Current Visit: Yes Status: Acute Plan to address problem: Blood pressure is improving. 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 Supplement potassium and follow-up level Subjective Date of service: 11/01/18 Principal diagnosis: Ac hypoxemic Resp failure; Acute pulmonary edema; Poorly controlled HTN Interval history: Pt awake, alert, in no acute respiratory distress, on milrinone gtt Objective - Vital Signs Vital signs: Vital Signs - 12hr 10/31/18 10/31/18 10/31/18 22:00 22:27 22:30 Temperature Pulse Rate 104 H Pulse Rate [ 117 H Anterior Bilateral Throughout] Respiratory Rate Respiratory 15 Rate [Anterior Bilateral Throughout] Blood Pressure Blood Pressure [Left] O2 Sat by Pulse 99 Oximetry 10/31/18 10/31/18 11/01/18 22:43 23:25 04:08 Temperature 98.5 F 98.1 F Pulse Rate 110 H 105 H Pulse Rate [ 120 H Anterior Bilateral Throughout] Respiratory 16 19 Rate Respiratory 14 Rate [Anterior Bilateral Throughout] Blood Pressure 166/103 189/113 Blood Pressure [Left] O2 Sat by Pulse 99 91 Oximetry 11/01/18 11/01/18 11/01/18 04:11 04:27 05:50 Temperature Pulse Rate Pulse Rate [ 103 H 100 H Anterior Bilateral Throughout] Respiratory Rate Respiratory 15 13 Rate [Anterior Bilateral Throughout] Blood Pressure Blood Pressure 166/103 [Left] O2 Sat by Pulse Oximetry 11/01/18 11/01/18 11/01/18 05:55 07:33 07:43 Temperature 98.2 F Pulse Rate 100 H 110 H Pulse Rate [ Anterior Bilateral Throughout] Respiratory 18 Rate Respiratory Rate [Anterior Bilateral Throughout] Blood Pressure 155/87 Blood Pressure [Left] O2 Sat by Pulse Oximetry - General Appearance General appearance: well-developed, well-nourished, appears stated age EENT: ATNC, PERRL, mucous membranes moist Neck: no JVD Respiratory: Present: Decreased Breath Sounds Cardiology: regular, S1S2 Gastrointestinal: normoactive bowel sounds Integumentary: no rash, other (+2 b/l LE edema ) Neurologic: no focal deficit, alert and oriented x3, strength 5/5, CN 3-12 intact Psychiatric: mood/affect appropriate, cooperative - Lab 11/01/18 04:41 11/01/18 04:41 Most recent lab results Calcium 8.7 mg/dL (8.4-10.2) 11/01/18 04:41 Magnesium 1.90 mg/dL (1.7-2.3) 10/30/18 04:05 241.0 mg/dL (0.1-20.0) H 10/28/18 13:37 21 mmol/L 10/28/18 13:37 Medications & Allergies - Medications Allergies/Adverse Reactions: Allergies lisinopril Allergy (Verified 10/09/18 09:19) Hives Home Medications: Home Medications Medication Instructions Recorded Confirmed Last Taken Type Albuterol Sulfate [Albuterol 1 - 2 puff IH Q6H PRN 10/09/18 10/27/18 Unknown History Sulfate Hfa] Ciprofloxacin HCl [Ciprofloxacin 500 mg PO Q12HR #14 tab 10/09/18 10/27/18 Unknown Rx TAB] Furosemide [Lasix] 20 mg PO QDAY 10/09/18 10/27/18 Unknown History Furosemide [Lasix] 20 mg PO QDAY #30 tablet 10/09/18 10/27/18 10/26/18 Rx Hydralazine HCl 50 mg PO Q12H 10/09/18 10/27/18 10/26/18 History Isosorbide Dinitrate [Isordil 10 mg PO TID 10/09/18 10/27/18 Unknown History Titradose] Metoprolol [Lopressor TAB] 25 mg PO BID #60 tablet 10/09/18 10/27/18 10/26/18 Rx Simvastatin 20 mg PO DAILY #30 tablet 10/09/18 10/27/18 10/26/18 Rx hydroCHLOROthiazide [Hctz] 12.5 mg PO QDAY #30 capsule 10/09/18 10/27/18 10/26/18 Rx Active Medications: Generic Name Dose Route Start Last Admin Trade Name Freq PRN Reason Stop Dose Admin Albuterol 2.5 mg 10/27/18 08:00 10/29/18 07:12 Proventil IH 2.5 mg Q6HRT PRN Administration Shortness Of Breath Albuterol/Ipratropium 1 ampul 10/27/18 02:00 11/01/18 07:45 Duoneb *Not For Prn Use* IH 1 ampul Q6HRT FAYE Administration Aspirin 325 mg 10/27/18 10:00 10/31/18 09:35 Aspirin PO 325 mg QDAY FAYE Administration Budesonide 0.5 mg 10/27/18 08:00 11/01/18 07:45 Pulmicort IH 0.5 mg Q12HRT FAYE Administration Carvedilol 6.25 mg 10/31/18 22:00 10/31/18 21:44 Coreg PO 6.25 mg BID FAYE Administration Diphenhydramine HCl 25 mg 10/28/18 22:49 10/28/18 23:05 Benadryl IV 25 mg Q6H PRN Administration Itching Famotidine 20 mg 10/29/18 10:00 10/31/18 10:35 Pepcid PO 20 mg DAILY FAYE Administration Furosemide 40 mg 10/27/18 14:00 11/01/18 05:41 Lasix IV 40 mg Q8H FAYE Administration Heparin Sodium (Porcine) 5,000 unit 10/27/18 22:00 10/31/18 21:44 Heparin SUB-Q 5,000 unit BID FAYE Administration Hydralazine HCl 50 mg 10/27/18 02:30 10/31/18 22:59 Apresoline PO Not Given Q12HR FAYE Hydralazine HCl 10 mg 10/27/18 02:33 11/01/18 04:24 Apresoline IV 10 mg Q4H PRN Administration sb/p >150 Hydrophilic Ointment 1 applic 10/27/18 13:07 Vaseline Lip Therapy TP Q2HR PRN Dry Lips Levofloxacin/Dextrose 750 mg in 150 mls @ 100 mls/hr 10/29/18 10:00 10/31/18 10:09 Levaquin 750mg/150ml IV 11/02/18 12:00 100 mls/hr Q48HR FAYE Administration Protocol Sodium Chloride 500 mls @ 10 mls/hr 10/29/18 09:55 10/29/18 10:08 Nacl 0.9% 500 Ml IV 10 mls/hr PRN PRN Administration FOR IV ANTIBIOTICS Milrinone Lactate/Dextrose 20 mg in 100 mls @ 16.841 mls/hr 10/30/18 16:00 11/01/18 07:43 Milrinone-D5w 20 Mg/100 Ml IV 11/02/18 15:59 0.375 mcg/kg/min TITR FAYE 16.841 mls/hr Administration 0.375 MCG/KG/MIN Insulin Human Lispro 0 unit 10/30/18 11:30 10/31/18 21:44 Humalog SUB-Q Not Given ACHS [facility] Protocol Isosorbide Dinitrate 10 mg 10/27/18 08:00 11/01/18 07:43 Isordil Titradose PO 10 mg TID [facility] Administration Multi-Ingred Cream/Lotion/Oil/Oint 1 applic 10/27/18 13:07 Artificial Tears Ophth Oint OU Q4HR PRN Dry Eye(s) Potassium Chloride 40 meq 11/01/18 08:00 K-Dur PO 11/01/18 20:01 Q12H [facility] Pravastatin Sodium 40 mg 10/27/18 22:00 10/31/18 21:44 Pravachol PO 40 mg QHS FAYE Administration
--- NOTE | 2018-11-01 08:39 | Progress Note ---
Assessment and Plan Decompensated systolic heart failure EF 20-25% by echo this admission Chronic renal failure Respiratory failure - resolved Hypertension Hypokalemia Recommendations: Continue aggressive medial therapy for systolic heart failure with IV milrinone and IV lasix Further cardiac evaluation with a persantine stress thallium is recommended on saturday Subjective Date of service: 11/01/18 Principal diagnosis: Ac hypoxemic Resp failure; Acute pulmonary edema; Poorly controlled HTN Interval history: patient is doing well excellent diuresis overnight no events on tele Objective Vital Signs Temp Pulse Pulse Pulse Pulse Resp Resp 11/01/18 07:43 110 H 11/01/18 07:33 98.2 F 18 11/01/18 05:55 100 H 11/01/18 05:50 11/01/18 04:27 100 H 13 11/01/18 04:11 103 H 15 11/01/18 04:08 98.1 F 105 H 19 10/31/18 23:25 98.5 F 110 H 16 10/31/18 22:43 120 H 14 10/31/18 22:30 10/31/18 22:27 117 H 15 10/31/18 22:00 104 H 10/31/18 20:16 18 10/31/18 19:30 98.0 F 103 H 16 10/31/18 19:00 98.0 F 103 H 16 10/31/18 17:41 101 H 10/31/18 14:15 99 H 20 10/31/18 14:05 100 H 20 10/31/18 14:00 100 H 10/31/18 12:32 101 H 101 H 16 10/31/18 11:45 97.7 F 18 BP BP Pulse Ox 11/01/18 07:43 11/01/18 07:33 155/87 11/01/18 05:55 11/01/18 05:50 166/103 11/01/18 04:27 11/01/18 04:11 11/01/18 04:08 189/113 91 10/31/18 23:25 166/103 99 10/31/18 22:43 10/31/18 22:30 99 10/31/18 22:27 10/31/18 22:00 10/31/18 20:16 10/31/18 19:30 160/99 93 10/31/18 19:00 160/99 93 10/31/18 17:41 10/31/18 14:15 10/31/18 14:05 10/31/18 14:00 10/31/18 12:32 10/31/18 11:45 146/91 - Physical Examination General: No Apparent Distress HEENT: Positive: PERRL Neck: Positive: trachea midline Cardiac: Positive: Reg Rate and Rhythm Lungs: Positive: Normal Exam Neuro: Positive: Grossly Intact Abdomen: Positive: Soft Skin: Positive: Clear Extremities: Present: +2 Edema - Labs and Meds CBC 11/01/18 Range/Units 04:41 WBC 9.0 (4.5-11.0) K/mm3 RBC 3.66 (3.65-5.03) M/mm3 Hgb 11.1 L (11.8-15.2) gm/dl Hct 33.4 L (35.5-45.6) % Plt Count 293 (140-440) K/mm3 Comprehensive Metabolic Panel 11/01/18 Range/Units 04:41 Sodium 142 (137-145) mmol/L Potassium 3.5 L (3.6-5.0) mmol/L Chloride 101.6 (98-107) mmol/L Carbon Dioxide 29 (22-30) mmol/L BUN 16 (9-20) mg/dL Creatinine 2.0 H (0.8-1.5) mg/dL Glucose 91 (75-100) mg/dL Calcium 8.7 (8.4-10.2) mg/dL - Allied health notes Allied health notes reviewed: nursing
--- NOTE | 2018-11-01 10:02 | Progress Note ---
Assessment and Plan Acute hypoxemic respiratory failure. Presumptive diagnosis of acute pulmonary edema. HFrEF (20-25%) Poorly controlled hypertension. Morbid obesity. Acute on chronic kidney injury. - repeat CXR in am - s/p Levaquin monotherapy - change to prn bronchodilators with pulmonary hygiene per RT - continue GI & VTE prophylaxis - prn supplemental oxygen to keep O2 sats > 90% - Monitor renal indices closely - Avoid nephrotoxic agents, adjust all medications for CrCL - Accuchecks with glycemic control. Target glucose of 140-180 mg/dL - Influenza and pneumonia vaccination per protocol CODE STATUS: FULL CODE Subjective Date of service: 11/01/18 Principal diagnosis: Ac hypoxemic Resp failure; Acute pulmonary edema; Poorly controlled HTN Interval history: Patient is seen today for: Acute hypoxemic respiratory failure; Presumptive diagnosis of acute pulmonary edema; Poorly controlled hypertension. Seen and examined at bedside; 24hour events reviewed; nursing and respiratory care staff consulted; no adverse overnight events reported to me; resting peacefully in bed; feeling better; denies acute chest pains or palpitations; still with FERNANDO Objective Vital Signs - 12hr 10/31/18 10/31/18 10/31/18 22:27 22:30 22:43 Temperature Pulse Rate Pulse Rate [ 117 H 120 H Anterior Bilateral Throughout] Respiratory Rate Respiratory 15 14 Rate [Anterior Bilateral Throughout] Blood Pressure Blood Pressure [Left] O2 Sat by Pulse 99 Oximetry 10/31/18 11/01/18 11/01/18 23:25 04:08 04:11 Temperature 98.5 F 98.1 F Pulse Rate 110 H 105 H Pulse Rate [ 103 H Anterior Bilateral Throughout] Respiratory 16 19 Rate Respiratory 15 Rate [Anterior Bilateral Throughout] Blood Pressure 166/103 189/113 Blood Pressure [Left] O2 Sat by Pulse 99 91 Oximetry 11/01/18 11/01/18 11/01/18 04:27 05:50 05:55 Temperature Pulse Rate 100 H Pulse Rate [ 100 H Anterior Bilateral Throughout] Respiratory Rate Respiratory 13 Rate [Anterior Bilateral Throughout] Blood Pressure Blood Pressure 166/103 [Left] O2 Sat by Pulse Oximetry 11/01/18 11/01/18 07:33 07:43 Temperature 98.2 F Pulse Rate 110 H Pulse Rate [ Anterior Bilateral Throughout] Respiratory 18 Rate Respiratory Rate [Anterior Bilateral Throughout] Blood Pressure 155/87 Blood Pressure [Left] O2 Sat by Pulse Oximetry Constitutional: no acute distress, alert, other (middle aged obese AAM, normocephalic and atraumatic) Eyes: non-icteric ENT: oropharynx moist Neck: supple, no lymphadenopathy, no JVD, other (large neck circumference) Effort: mildly labored Ascultation: Bilateral: clear Percussion: Bilateral: not dull Cardiovascular: regular rate and rhythm, other (S1,S2) Gastrointestinal: normoactive bowel sounds, soft, non-tender, non-distended Integumentary: normal Extremities: no cyanosis, pulses normal, no ischemia or petechiae, edema (1+) Neurologic: normal mental status, non-focal exam, pupils equal and round, CN II- XII normal, motor strength normal and Psychiatric: mood appropriate, affect normal CBC and BMP: 11/01/18 04:41 11/01/18 04:41 ABG, PT/INR, D-dimer: ABG POC ABG pH 7.342 (7.35-7.45) L 10/29/18 12:32 POC ABG pCO2 53.3 (35-45) H 10/29/18 12:32 POC ABG pO2 109 (80-105) H 10/29/18 12:32 POC ABG HCO3 28.8 (22-26 mml/L) 10/29/18 12:32 POC ABG Total CO2 30 (23-27mmol/L) 10/29/18 12:32 POC ABG O2 Sat 98 10/29/18 12:32 PT/INR, D-dimer 679.01 ng/mlDDU (0-234) H 10/27/18 14:34 Abnormal lab findings: Abnormal Labs 10/26/18 10/26/18 10/26/18 18:21 18:21 22:56 WBC RBC Hgb 11.7 L Hct RDW 17.0 H D-Dimer POC ABG pH POC ABG pCO2 POC ABG pO2 Potassium Carbon Dioxide BUN 21 H Creatinine 2.4 H Glucose 106 H POC Glucose Total Creatine Kinase 287 H CK-MB (CK-2) Troponin T C-Reactive Protein NT-Pro-B Natriuret Pep 8302 H Total Protein 5.6 L Albumin 2.9 L Urine Creatinine Urine Chloride 10/27/18 10/27/18 10/27/18 02:58 03:00 03:00 WBC 12.6 H RBC Hgb Hct RDW 16.5 H D-Dimer POC ABG pH 7.301 L POC ABG pCO2 45.9 H POC ABG pO2 Potassium Carbon Dioxide 20 L BUN 21 H Creatinine 2.6 H Glucose 215 H POC Glucose Total Creatine Kinase CK-MB (CK-2) Troponin T C-Reactive Protein NT-Pro-B Natriuret Pep Total Protein Albumin Urine Creatinine Urine Chloride 10/27/18 10/27/18 10/27/18 12:04 14:34 14:34 WBC RBC Hgb Hct RDW D-Dimer 679.01 H POC ABG pH POC ABG pCO2 POC ABG pO2 Potassium Carbon Dioxide BUN Creatinine Glucose POC Glucose 124 H Total Creatine Kinase CK-MB (CK-2) Troponin T C-Reactive Protein 4.30 H NT-Pro-B Natriuret Pep Total Protein Albumin Urine Creatinine Urine Chloride 10/27/18 10/27/18 10/27/18 15:30 17:52 18:30 WBC RBC Hgb Hct RDW D-Dimer POC ABG pH 7.336 L POC ABG pCO2 50.7 H POC ABG pO2 Potassium Carbon Dioxide BUN Creatinine Glucose POC Glucose 123 H 125 H Total Creatine Kinase CK-MB (CK-2) Troponin T C-Reactive Protein NT-Pro-B Natriuret Pep Total Protein Albumin Urine Creatinine Urine Chloride 10/27/18 10/28/18 10/28/18 23:52 00:09 03:38 WBC RBC Hgb Hct RDW D-Dimer POC ABG pH POC ABG pCO2 51.3 H POC ABG pO2 Potassium Carbon Dioxide BUN Creatinine Glucose POC Glucose 113 H Total Creatine Kinase 229 H CK-MB (CK-2) 6.7 H Troponin T 0.065 H C-Reactive Protein NT-Pro-B Natriuret Pep Total Protein Albumin Urine Creatinine Urine Chloride 10/28/18 10/28/18 10/28/18 03:59 03:59 06:39 WBC RBC Hgb Hct RDW 16.8 H D-Dimer POC ABG pH POC ABG pCO2 POC ABG pO2 Potassium Carbon Dioxide BUN 31 H Creatinine 3.0 H Glucose 127 H POC Glucose 109 H Total Creatine Kinase CK-MB (CK-2) Troponin T C-Reactive Protein NT-Pro-B Natriuret Pep Total Protein 6.1 L Albumin 3.2 L Urine Creatinine Urine Chloride 10/28/18 10/28/18 10/28/18 10:05 11:11 13:37 WBC RBC Hgb Hct RDW D-Dimer POC ABG pH POC ABG pCO2 POC ABG pO2 Potassium Carbon Dioxide BUN Creatinine Glucose POC Glucose 111 H Total Creatine Kinase 215 H CK-MB (CK-2) 7.7 H Troponin T 0.122 H* D C-Reactive Protein NT-Pro-B Natriuret Pep Total Protein Albumin Urine Creatinine 241.0 H Urine Chloride 20.1 L 10/28/18 10/29/18 10/29/18 17:13 03:37 03:59 WBC 12.4 H RBC 3.63 L Hgb 11.0 L Hct 34.1 L RDW 17.0 H D-Dimer POC ABG pH 7.319 L 7.276 L POC ABG pCO2 55.8 H 63.5 H POC ABG pO2 113 H 119 H Potassium Carbon Dioxide BUN Creatinine Glucose POC Glucose Total Creatine Kinase CK-MB (CK-2) Troponin T C-Reactive Protein NT-Pro-B Natriuret Pep Total Protein Albumin Urine Creatinine Urine Chloride 10/29/18 10/30/18 10/30/18 12:32 04:05 04:05 WBC RBC 3.45 L Hgb 10.7 L Hct 32.1 L RDW 16.1 H D-Dimer POC ABG pH 7.342 L POC ABG pCO2 53.3 H POC ABG pO2 109 H Potassium 3.3 L D Carbon Dioxide BUN 34 H Creatinine 2.7 H Glucose POC Glucose Total Creatine Kinase CK-MB (CK-2) Troponin T C-Reactive Protein NT-Pro-B Natriuret Pep Total Protein Albumin Urine Creatinine Urine Chloride 10/30/18 10/31/18 10/31/18 11:15 04:53 04:53 WBC RBC 3.51 L Hgb 10.8 L Hct 32.1 L RDW 16.1 H D-Dimer POC ABG pH POC ABG pCO2 POC ABG pO2 Potassium 3.4 L Carbon Dioxide 32 H BUN 23 H Creatinine 2.2 H Glucose POC Glucose 128 H Total Creatine Kinase CK-MB (CK-2) Troponin T C-Reactive Protein NT-Pro-B Natriuret Pep Total Protein Albumin Urine Creatinine Urine Chloride 11/01/18 11/01/18 04:41 04:41 WBC RBC Hgb 11.1 L Hct 33.4 L RDW 16.0 H D-Dimer POC ABG pH POC ABG pCO2 POC ABG pO2 Potassium 3.5 L Carbon Dioxide BUN Creatinine 2.0 H Glucose POC Glucose Total Creatine Kinase CK-MB (CK-2) Troponin T C-Reactive Protein NT-Pro-B Natriuret Pep Total Protein Albumin Urine Creatinine Urine Chloride Chest x-ray: image reviewed (possible RLL nodule; ? confluence of shadows; mild interstitial edema) Allied health notes reviewed: nursing
[2018-11-01] MEDS: HEPARIN SUB-Q SCH ×2 (10:15→21:30)
[2018-11-01] MEDS: APRESOLINE PO SCH ×2 (10:15→21:29)
[2018-11-01] MEDS: PEPCID PO SCH (10:16)
[2018-11-01] MEDS: COREG PO SCH ×2 (10:16→21:29)
[2018-11-01] MEDS: ASPIRIN PO SCH (10:16)
[2018-11-01] MEDS ORDERED: K-DUR PO ONE (10:17)
[2018-11-01] MEDS: K-DUR PO SCH ×2 (10:22→21:30)
[2018-11-01] MEDS: HumaLOG SUB-Q SCH ×4 (11:16→22:36)
--- NOTE | 2018-11-01 11:59 | Event Note ---
Date: 11/01/18 Patient threatening to leave AMA, I have spoken with him twice and trying to convince him to stay. I have told him the risk but he must go because of bills. He says that repo man going to take him car away in the hospital parking lot. He says that he has no friends or relatives that can help him. I told him not to drive. He has a stress test on Saturday. He is still on IV milirone drip.
--- NOTE | 2018-11-01 12:55 | Progress Note ---
Assessment and Plan Assessment and plan: Patient is a 43 yo man with a history of hypertension, asthma, morbid obesity, cardiomyopathy and CKD who presented to [facility] ED on 10/26/18 with sob, leg swelling. He was admitted for CHF to Telemetry, he eventually got worse and was moved to ICU on BIPAP on 10/27/18 then he was intubated. He was subsequently extubated on 10/29/18. -Acute on chronic systolic heart failure, EF est 20-25%: continue to diuresis, Cardiology is following, stopped IV steroids, on Primacor IV drip -Acute hypoxic respiratory failure, failed Bipap, intubated on 10/27/18 and extubated 10/29/18 and tranferred out icu on 10/30/18: currently on nasal canula, Pulmonology is following. 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 I have told him the risk but he must go because of bills. He says that repo man going to take him car away in the hospital parking lot. He says that he has no friends or relatives that can help him. I told him not to drive. He has a stress test on Saturday. He is still on IV milirone drip. I called his NOK number in EMR but his Grandmother answered and gave me his mother number [phone] ([place]). I spoke with her, she says will call him. Patient signed out AMA, left the floor but his mother called him and now he wants to come back and he is down in ED. He may have left the hospital briefly but he has not been taking out of our inpatient system yet. I told them to bring him back into his room and we will get UDS History Interval history: Patient was seen and examined. Follow-up on current diagnosis of CHF and respiratory failure. No overnight events reported to me. Imaging, nursing note, chart, labs and old chart reviewed. Respiratory failure resolving, Hospitalist Physical - Physical exam Narrative exam: Gen: morbid obese bmi 41.3, ill appearing, extubated now HEENT: NCAT, EOMI, PERRL, OP clear Neck: supple, no adenopathy, no thyromegaly, equivocal JVD CVS/Heart: Regular tachy, normal S1S2, pulses present bilaterally Chest/Lungs: tachypneic, diminished bs bilateral, Symmetrical chest expansion, good air entry bilaterally GI/Abdomen: soft, NTND, good bowel sounds, no guarding or rebound /Bladder: no suprapubic tenderness, no CVA or paraspinal tenderness Extermity/Skin: ble edema MSK: from x 4 Neuro: No new focal deficits Psych: calm - Constitutional Vitals: Temp Pulse Resp BP Pulse Ox 98.2 F 108 H 20 155/87 96 11/01/18 07:33 11/01/18 07:55 11/01/18 07:55 11/01/18 07:33 11/01/18 07:45 General appearance: Absent: mild distress Results - Labs CBC & Chem 7: 11/01/18 04:41 11/01/18 04:41 Labs: Laboratory Last Values WBC 9.0 K/mm3 (4.5-11.0) 11/01/18 04:41 RBC 3.66 M/mm3 (3.65-5.03) 11/01/18 04:41 Hgb 11.1 gm/dl (11.8-15.2) L 11/01/18 04:41 Hct 33.4 % (35.5-45.6) L 11/01/18 04:41 MCV 91 fl (84-94) 11/01/18 04:41 MCH 30 pg (28-32) 11/01/18 04:41 MCHC 33 % (32-34) 11/01/18 04:41 RDW 16.0 % (13.2-15.2) H 11/01/18 04:41 Plt Count 293 K/mm3 (140-440) 11/01/18 04:41 679.01 ng/mlDDU (0-234) H 10/27/18 14:34 POC ABG pH 7.342 (7.35-7.45) L 10/29/18 12:32 POC ABG pCO2 53.3 (35-45) H 10/29/18 12:32 POC ABG pO2 109 (80-105) H 10/29/18 12:32 POC ABG HCO3 28.8 (22-26 mml/L) 10/29/18 12:32 POC ABG Total CO2 30 (23-27mmol/L) 10/29/18 12:32 POC ABG O2 Sat 98 10/29/18 12:32 POC ABG Base Excess 3 ((-2) - (+3)mmol/L) 10/29/18 12:32 30 % 10/29/18 12:32 Sodium 142 mmol/L (137-145) 11/01/18 04:41 Potassium 3.5 mmol/L (3.6-5.0) L 11/01/18 04:41 Chloride 101.6 mmol/L (98-107) 11/01/18 04:41 Carbon Dioxide 29 mmol/L (22-30) 11/01/18 04:41 15 mmol/L 11/01/18 04:41 BUN 16 mg/dL (9-20) 11/01/18 04:41 2.0 mg/dL (0.8-1.5) H 11/01/18 04:41 Estimated GFR 44 ml/min 11/01/18 04:41 8 % 11/01/18 04:41 Glucose 91 mg/dL (75-100) 11/01/18 04:41 POC Glucose 90 (70-105) 11/01/18 07:30 Lactic Acid 0.80 mmol/L (0.7-2.0) 10/26/18 22:56 Calcium 8.7 mg/dL (8.4-10.2) 11/01/18 04:41 Magnesium 1.90 mg/dL (1.7-2.3) 10/30/18 04:05 0.40 mg/dL (0.1-1.2) 10/28/18 03:59 AST 29 units/L (5-40) 10/28/18 03:59 ALT 25 units/L (7-56) 10/28/18 03:59 45 units/L (35-129) 10/28/18 03:59 215 units/L (55-170) H 10/28/18 10:05 CK-MB (CK-2) 7.7 ng/mL (0.0-4.0) H 10/28/18 10:05 CK-MB (CK-2) Rel Index 3.5 (0-4) 10/28/18 10:05 0.122 ng/mL (0.00-0.029) H* D 10/28/18 10:05 4.30 mg/dL (0.00-1.30) H 10/27/18 14:34 NT-Pro-B Natriuret Pep 8302 pg/mL (0-450) H 10/26/18 18:21 6.1 g/dL (6.3-8.2) L 10/28/18 03:59 3.2 g/dL (3.9-5) L 10/28/18 03:59 1.1 % 10/28/18 03:59 Triglycerides 80 mg/dL (2-149) 10/28/18 00:09 Cholesterol 151 mg/dL (50-199) 10/28/18 00:09 80 mg/dL (50-130) 10/28/18 00:09 59 mg/dL (40-59) 10/28/18 00:09 2.55 % 10/28/18 00:09 Yellow (Yellow) 10/28/18 08:43 Slightly-cloudy (Clear) 10/28/18 08:43 5.0 (5.0-7.0) 10/28/18 08:43 Ur Specific [place] 1.014 (1.003-1.030) 10/28/18 08:43 <15 mg/dl mg/dL (Negative) 10/28/18 08:43 Neg mg/dL (Negative) 10/28/18 08:43 Neg mg/dL (Negative) 10/28/18 08:43 Neg (Negative) 10/28/18 08:43 Neg (Negative) 10/28/18 08:43 Neg (Negative) 10/28/18 08:43 < 2.0 mg/dL (<2.0) 10/28/18 08:43 Ur Leukocyte Esterase Neg (Negative) 10/28/18 08:43 2.0 /HPF (0.0-6.0) 10/28/18 08:43 2.0 /HPF (0.0-6.0) 10/28/18 08:43 1+ /HPF (Negative) 10/28/18 08:43 Few /HPF 10/28/18 08:43 241.0 mg/dL (0.1-20.0) H 10/28/18 13:37 21 mmol/L 10/28/18 13:37 20.1 mmolL (110-250) L 10/28/18 13:37 Active Medications - Current Medications Current Medications: Generic Name Dose Route Start Last Admin Trade Name Freq PRN Reason Stop Dose Admin Albuterol 2.5 mg 10/27/18 08:00 10/29/18 07:12 Proventil IH 2.5 mg Q6HRT PRN Administration Shortness Of Breath Albuterol/Ipratropium 1 ampul 10/27/18 02:00 11/01/18 07:45 Duoneb *Not For Prn Use* IH 1 ampul Q6HRT FAYE Administration Aspirin 325 mg 10/27/18 10:00 11/01/18 10:16 Aspirin PO 325 mg QDAY FAYE Administration Budesonide 0.5 mg 10/27/18 08:00 11/01/18 07:45 Pulmicort IH 0.5 mg Q12HRT FAYE Administration Carvedilol 6.25 mg 10/31/18 22:00 11/01/18 10:16 Coreg PO 6.25 mg BID FAYE Administration Diphenhydramine HCl 25 mg 10/28/18 22:49 10/28/18 23:05 Benadryl IV 25 mg Q6H PRN Administration Itching Famotidine 20 mg 10/29/18 10:00 11/01/18 10:16 Pepcid PO 20 mg DAILY FAYE Administration Furosemide 40 mg 10/27/18 14:00 11/01/18 05:41 Lasix IV 40 mg Q8H FAYE Administration Heparin Sodium (Porcine) 5,000 unit 10/27/18 22:00 11/01/18 10:15 Heparin SUB-Q 5,000 unit BID FAYE Administration Hydralazine HCl 50 mg 10/27/18 02:30 11/01/18 10:15 Apresoline PO 50 mg Q12HR FAYE Administration Hydralazine HCl 10 mg 10/27/18 02:33 11/01/18 04:24 Apresoline IV 10 mg Q4H PRN Administration sb/p >150 Hydrophilic Ointment 1 applic 10/27/18 13:07 Vaseline Lip Therapy TP Q2HR PRN Dry Lips Levofloxacin/Dextrose 750 mg in 150 mls @ 100 mls/hr 10/29/18 10:00 10/31/18 10:09 Levaquin 750mg/150ml IV 11/02/18 12:00 100 mls/hr Q48HR FAYE Administration Protocol Sodium Chloride 500 mls @ 10 mls/hr 10/29/18 09:55 10/29/18 10:08 Nacl 0.9% 500 Ml IV 10 mls/hr PRN PRN Administration FOR IV ANTIBIOTICS Milrinone Lactate/Dextrose 20 mg in 100 mls @ 16.841 mls/hr 10/30/18 16:00 11/01/18 07:43 Milrinone-D5w 20 Mg/100 Ml IV 11/02/18 15:59 0.375 mcg/kg/min TITR FAYE 16.841 mls/hr Administration 0.375 MCG/KG/MIN Insulin Human Lispro 0 unit 10/30/18 11:30 11/01/18 11:16 Humalog SUB-Q Not Given ACHS [facility] Protocol Isosorbide Dinitrate 10 mg 10/27/18 08:00 11/01/18 07:43 Isordil Titradose PO 10 mg TID FAYE Administration Multi-Ingred Cream/Lotion/Oil/Oint 1 applic 10/27/18 13:07 Artificial Tears Ophth Oint OU Q4HR PRN Dry Eye(s) Potassium Chloride 40 meq 11/01/18 08:00 11/01/18 10:22 K-Dur PO 11/01/18 20:01 40 meq Q12H FAYE Administration Pravastatin Sodium 40 mg 10/27/18 22:00 10/31/18 21:44 Pravachol PO 40 mg QHS FAYE Administration Nutrition/Malnutrition Assess - Dietary Evaluation Nutrition/Malnutrition Findings: Nutrition Notes Start: 10/28/18 08:24 Freq: Status: Active Protocol: Document 10/30/18 08:24 CP (Rec: 05/09/19 08:26 CP [id number]) Co-Sign 10/30/18 08:24 LP Nutrition Notes Initial or Follow up Brief Note Current Diagnosis Hypertension,Heart Failure Other Pertinent Diagnosis Asthma, dyspnea Current Diet Cardiac Subjective/Other Information F/U for TF to start/TF tolerance. Pt diet advanced to cardiac. Pt was extubated and diet was advanced this morning. Nutrition Intervention Follow-Up By: 11/03/18 Additional Comments F/U: PO intakes
[2018-11-01 18:06] LABS: Amphetamine Screen,Urine PRESUMPTIVE NEGATIVE; Benzodiazepines Screen,Urine PRESUMPTIVE NEGATIVE; Cannabinoid Screen,Urine PRESUMPTIVE NEGATIVE; Cocaine Screen,Urine PRESUMPTIVE NEGATIVE; Methadone Screen,Urine PRESUMPTIVE NEGATIVE; Opiate Screen,Urine PRESUMPTIVE NEGATIVE
[2018-11-01] MEDS: PRAVACHOL PO SCH (21:29)
[2018-11-02] MEDS: APRESOLINE IV PRN ×2 (00:12→05:21)
[2018-11-02] MEDS ORDERED: PROVENTIL IH PRN (02:04)
[2018-11-02] MEDS: DUONEB *Not for PRN Use IH SCH ×3 (02:06→14:08)
[2018-11-02] MEDS: LASIX IV SCH ×3 (05:19→21:32)
[2018-11-02] MEDS: PULMICORT IH SCH (07:21)
--- NOTE | 2018-11-02 08:24 | Progress Note ---
Assessment and Plan - Patient Problems (1) Cardiorenal syndrome with renal failure Current Visit: Yes Status: Acute Plan to address problem: Acute kidney injury acute cardiorenal syndrome. Kidney function is improving on milrinone gtt and lasix 40mg q8hr. Follow up renal function and electrolytes on diuretics (2) Acute and chronic respiratory failure with hypoxia Current Visit: Yes Status: Acute Plan to address problem: Improved. 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 Milrinone per Ground Wirer. Follow up intake and output and monitor electrolytes and function (4) Hypertensive chronic kidney disease with stage 1 through stage 4 chronic kidney disease, or unspecified chronic kidney disease Current Visit: Yes Status: Acute Plan to address problem: Blood pressure is improving. 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 Supplement potassium and follow-up level Subjective Date of service: 11/02/18 Principal diagnosis: Ac hypoxemic Resp failure; Acute pulmonary edema; Poorly controlled HTN Interval history: Pt awake, alert, in no acute respiratory distress, on milrinone gtt Objective - Vital Signs Vital signs: Vital Signs - 12hr 11/01/18 11/02/18 11/02/18 22:00 00:06 02:02 Temperature 98.4 F Pulse Rate 114 H 114 H Respiratory 18 Rate Blood Pressure 160/113 O2 Sat by Pulse 91 98 Oximetry 11/02/18 11/02/18 04:20 06:00 Temperature 97.2 F L Pulse Rate 116 H 114 H Respiratory 16 Rate Blood Pressure 168/102 O2 Sat by Pulse 94 Oximetry - General Appearance General appearance: well-developed, well-nourished, appears stated age EENT: ATNC, PERRL, mucous membranes moist Neck: no JVD Respiratory: Present: Clear to Ascultation Cardiology: regular, S1S2 Gastrointestinal: normoactive bowel sounds Integumentary: no rash, other (no edema ) Neurologic: no focal deficit, alert and oriented x3, strength 5/5, CN 3-12 intact Psychiatric: mood/affect appropriate, cooperative - Lab 11/01/18 04:41 11/01/18 04:41 Most recent lab results Calcium 8.7 mg/dL (8.4-10.2) 11/01/18 04:41 Magnesium 1.90 mg/dL (1.7-2.3) 10/30/18 04:05 241.0 mg/dL (0.1-20.0) H 10/28/18 13:37 21 mmol/L 10/28/18 13:37 Medications & Allergies - Medications Allergies/Adverse Reactions: Allergies lisinopril Allergy (Verified 10/09/18 09:19) Hives Home Medications: Home Medications Medication Instructions Recorded Confirmed Last Taken Type Albuterol Sulfate [Albuterol 1 - 2 puff IH Q6H PRN 10/09/18 10/27/18 Unknown History Sulfate Hfa] Ciprofloxacin HCl [Ciprofloxacin 500 mg PO Q12HR #14 tab 10/09/18 10/27/18 Unkn own Rx TAB] Furosemide [Lasix] 20 mg PO QDAY 10/09/18 10/27/18 Unknown History Furosemide [Lasix] 20 mg PO QDAY #30 tablet 10/09/18 10/27/18 10/26/18 Rx Hydralazine HCl 50 mg PO Q12H 10/09/18 10/27/18 10/26/18 History Isosorbide Dinitrate [Isordil 10 mg PO TID 10/09/18 10/27/18 Unknown History Titradose] Metoprolol [Lopressor TAB] 25 mg PO BID #60 tablet 10/09/18 10/27/18 10/26/18 Rx Simvastatin 20 mg PO DAILY #30 tablet 10/09/18 10/27/18 10/26/18 Rx hydroCHLOROthiazide [Hctz] 12.5 mg PO QDAY #30 capsule 10/09/18 10/27/18 10/26/18 Rx Active Medications: Generic Name Dose Route Start Last Admin Trade Name Freq PRN Reason Stop Dose Admin Albuterol 2.5 mg 11/02/18 02:04 Proventil IH Q4HRT PRN Shortness Of Breath Albuterol/Ipratropium 1 ampul 11/02/18 08:00 11/02/18 07:21 Duoneb *Not For Prn Use* IH 1 ampul TIDRT FAYE Administration Aspirin 325 mg 10/27/18 10:00 11/01/18 10:16 Aspirin PO 325 mg QDAY FAYE Administration Budesonide 0.5 mg 10/27/18 08:00 11/02/18 07:21 Pulmicort IH 0.5 mg Q12HRT FAYE Administration Carvedilol 6.25 mg 10/31/18 22:00 11/01/18 21:29 Coreg PO 6.25 mg BID FAYE Administration Diphenhydramine HCl 25 mg 10/28/18 22:49 10/28/18 23:05 Benadryl IV 25 mg Q6H PRN Administration Itching Famotidine 20 mg 10/29/18 10:00 11/01/18 10:16 Pepcid PO 20 mg DAILY FAYE Administration Furosemide 40 mg 10/27/18 14:00 11/02/18 05:19 Lasix IV 40 mg Q8H FAYE Administration Heparin Sodium (Porcine) 5,000 unit 10/27/18 22:00 11/01/18 21:30 Heparin SUB-Q 5,000 unit BID FAYE Administration Hydralazine HCl 50 mg 10/27/18 02:30 11/01/18 21:29 Apresoline PO 50 mg Q12HR FAYE Administration Hydralazine HCl 10 mg 10/27/18 02:33 11/02/18 05:21 Apresoline IV 10 mg Q4H PRN Administration sb/p >150 Hydrophilic Ointment 1 applic 10/27/18 13:07 Vaseline Lip Therapy TP Q2HR PRN Dry Lips Levofloxacin/Dextrose 750 mg in 150 mls @ 100 mls/hr 10/29/18 10:00 10/31/18 10:09 Levaquin 750mg/150ml IV 11/02/18 12:00 100 mls/hr Q48HR FAYE Administration Protocol Sodium Chloride 500 mls @ 10 mls/hr 10/29/18 09:55 10/29/18 10:08 Nacl 0.9% 500 Ml IV 10 mls/hr PRN PRN Administration FOR IV ANTIBIOTICS Milrinone Lactate/Dextrose 20 mg in 100 mls @ 16.841 mls/hr 10/30/18 16:00 11/01/18 21:35 Milrinone-D5w 20 Mg/100 Ml IV 11/02/18 15:59 0.375 mcg/kg/min TITR FAYE 16.841 mls/hr Administration 0.375 MCG/KG/MIN Insulin Human Lispro 0 unit 10/30/18 11:30 11/01/18 22:36 Humalog SUB-Q Not Given ACHS [facility] Protocol Isosorbide Dinitrate 10 mg 10/27/18 08:00 11/01/18 21:29 Isordil Titradose PO 10 mg TID [facility] Administration Multi-Ingred Cream/Lotion/Oil/Oint 1 applic 10/27/18 13:07 Artificial Tears Ophth Oint OU Q4HR PRN Dry Eye(s) Pravastatin Sodium 40 mg 10/27/18 22:00 11/01/18 21:29 Pravachol PO 40 mg QHS [facility] Administration
[2018-11-02] MEDS: ISORDIL TITRADOSE PO SCH ×3 (08:59→21:29)
[2018-11-02] MEDS: COREG PO SCH ×2 (08:59→21:29)
[2018-11-02] MEDS: HEPARIN SUB-Q SCH ×2 (09:00→21:29)
[2018-11-02] MEDS: PEPCID PO SCH (09:00)
[2018-11-02] MEDS: ASPIRIN PO SCH (09:00)
[2018-11-02] MEDS: APRESOLINE PO SCH ×3 (09:00→21:28)
[2018-11-02] MEDS: HumaLOG SUB-Q SCH (09:01)
[2018-11-02] MEDS: LEVAQUIN 750MG/150ML 750 MG/150 ML BAG IV SCH (10:24)
--- NOTE | 2018-11-02 10:28 | Progress Note ---
Assessment and Plan - Patient Problems (1) Acute on chronic systolic heart failure Current Visit: Yes Status: Acute (2) Hypertensive chronic kidney disease with stage 1 through stage 4 chronic kidney disease, or unspecified chronic kidney disease Current Visit: Yes Status: Acute Subjective Date of service: 11/02/18 Principal diagnosis: Ac hypoxemic Resp failure; Acute pulmonary edema; Poorly controlled HTN Interval history: BREATHING BETTER Objective Vital Signs Temp Pulse Pulse Pulse Resp Resp BP 11/02/18 08:59 111 H 11/02/18 08:07 97.6 F 18 163/103 11/02/18 06:00 114 H 11/02/18 04:20 97.2 F L 116 H 16 168/102 11/02/18 02:02 11/02/18 00:06 98.4 F 114 H 18 160/113 11/01/18 22:00 114 H 11/01/18 20:21 98.5 F 115 H 18 170/108 11/01/18 20:00 110 H 18 11/01/18 19:42 112 H 18 11/01/18 17:06 98.0 F 114 H 18 149/105 11/01/18 15:12 108 H 11/01/18 14:00 108 H 11/01/18 13:15 109 H 20 11/01/18 13:04 106 H 20 11/01/18 13:00 18 146/95 11/01/18 12:00 101 H 18 11/01/18 11:36 18 132/77 Pulse Ox 11/02/18 08:59 11/02/18 08:07 11/02/18 06:00 11/02/18 04:20 94 11/02/18 02:02 98 11/02/18 00:06 91 11/01/18 22:00 11/01/18 20:21 94 11/01/18 20:00 11/01/18 19:42 97 11/01/18 17:06 97 11/01/18 15:12 11/01/18 14:00 11/01/18 13:15 11/01/18 13:04 11/01/18 13:00 11/01/18 12:00 11/01/18 11:36 - Physical Examination General: No Apparent Distress HEENT: Positive: PERRL Neck: Positive: trachea midline Cardiac: Positive: Reg Rate and Rhythm Lungs: Positive: clear to auscultation, Decreased Breath Sounds Neuro: Positive: Grossly Intact Abdomen: Positive: Soft Skin: Positive: Clear Extremities: Present: +1 Edema - Allied health notes Allied health notes reviewed: nursing
[2018-11-02] MEDS ORDERED: ZESTRIL PO SCH (11:00)
[2018-11-02] MEDS: MILRINONE-D5W 20 MG/100 ML 20 MG/100 ML BAG IV SCH (13:36)
--- NOTE | 2018-11-02 14:24 | Progress Note ---
Assessment and Plan Assessment and plan: Patient is a 43 yo man with a history of hypertension, asthma, morbid obesity, cardiomyopathy and CKD who presented to [facility] ED on 10/26/18 with sob, leg swelling. He was admitted for CHF to Telemetry, he eventually got worse and was moved to ICU on BIPAP on 10/27/18 then he was intubated. He was subsequently extubated on 10/29/18. -Acute on chronic systolic heart failure, EF est 20-25%: continue to diuresis, Cardiology is following, stopped IV steroids, on Primacor IV drip -Acute hypoxic respiratory failure, failed Bipap, intubated on 10/27/18 and extubated 10/29/18 and tranferred out icu on 10/30/18: currently on nasal canula, Pulmonology is following. 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 I have told him the risk but he must go because of bills. He says that repo man going to take him car away in the hospital parking lot. He says that he has no friends or relatives that can help him. I told him not to drive. He has a stress test on Saturday. He is still on IV milir one drip. I called his NOK number in EMR but his Grandmother answered and gave me his mother number [phone] (Lauren Wy). I spoke with her, she says will call him. Patient signed out AMA, left the floor but his mother called him and now he wants to come back and he is down in ED. He may have left the hospital briefly but he has not been taking out of our inpatient system yet. I told them to bring him back into his room and we will get UDS->negative stress test tomorrow History Interval history: Patient was seen and examined. Follow-up on current diagnosis of CHF and respiratory failure. No overnight events reported to me. Imaging, nursing note, chart, labs and old chart reviewed. Respiratory failure resolving, Hospitalist Physical - Physical exam Narrative exam: Gen: morbid obese bmi 41.3, ill appearing, extubated now HEENT: NCAT, EOMI, PERRL, OP clear Neck: supple, no adenopathy, no thyromegaly, equivocal JVD CVS/Heart: Regular tachy, normal S1S2, pulses present bilaterally Chest/Lungs: tachypneic, diminished bs bilateral, Symmetrical chest expansion, good air entry bilaterally GI/Abdomen: soft, NTND, good bowel sounds, no guarding or rebound /Bladder: no suprapubic tenderness, no CVA or paraspinal tenderness Extermity/Skin: ble edema MSK: from x 4 Neuro: No new focal deficits Psych: calm - Constitutional Vitals: Temp Pulse Resp BP Pulse Ox 97.9 F 111 H 18 176/117 97 11/02/18 11:27 11/02/18 08:59 11/02/18 11:27 11/02/18 11:27 11/02/18 07:21 General appearance: Absent: mild distress Results - Labs CBC & Chem 7: 11/01/18 04:41 11/01/18 04:41 Labs: Laboratory Last Values WBC 9.0 K/mm3 (4.5-11.0) 11/01/18 04:41 RBC 3.66 M/mm3 (3.65-5.03) 11/01/18 04:41 Hgb 11.1 gm/dl (11.8-15.2) L 11/01/18 04:41 Hct 33.4 % (35.5-45.6) L 11/01/18 04:41 MCV 91 fl (84-94) 11/01/18 04:41 MCH 30 pg (28-32) 11/01/18 04:41 MCHC 33 % (32-34) 11/01/18 04:41 RDW 16.0 % (13.2-15.2) H 11/01/18 04:41 Plt Count 293 K/mm3 (140-440) 11/01/18 04:41 679.01 ng/mlDDU (0-234) H 10/27/18 14:34 POC ABG pH 7.342 (7.35-7.45) L 10/29/18 12:32 POC ABG pCO2 53.3 (35-45) H 10/29/18 12:32 POC ABG pO2 109 (80-105) H 10/29/18 12:32 POC ABG HCO3 28.8 (22-26 mml/L) 10/29/18 12:32 POC ABG Total CO2 30 (23-27mmol/L) 10/29/18 12:32 POC ABG O2 Sat 98 10/29/18 12:32 POC ABG Base Excess 3 ((-2) - (+3)mmol/L) 10/29/18 12:32 30 % 10/29/18 12:32 Sodium 142 mmol/L (137-145) 11/01/18 04:41 Potassium 3.5 mmol/L (3.6-5.0) L 11/01/18 04:41 Chloride 101.6 mmol/L (98-107) 11/01/18 04:41 Carbon Dioxide 29 mmol/L (22-30) 11/01/18 04:41 15 mmol/L 11/01/18 04:41 BUN 16 mg/dL (9-20) 11/01/18 04:41 2.0 mg/dL (0.8-1.5) H 11/01/18 04:41 Estimated GFR 44 ml/min 11/01/18 04:41 8 % 11/01/18 04:41 Glucose 91 mg/dL (75-100) 11/01/18 04:41 POC Glucose 82 (70-105) 11/02/18 12:14 Lactic Acid 0.80 mmol/L (0.7-2.0) 10/26/18 22:56 Calcium 8.7 mg/dL (8.4-10.2) 11/01/18 04:41 Magnesium 1.90 mg/dL (1.7-2.3) 10/30/18 04:05 0.40 mg/dL (0.1-1.2) 10/28/18 03:59 AST 29 units/L (5-40) 10/28/18 03:59 ALT 25 units/L (7-56) 10/28/18 03:59 45 units/L (35-129) 10/28/18 03:59 215 units/L (55-170) H 10/28/18 10:05 CK-MB (CK-2) 7.7 ng/mL (0.0-4.0) H 10/28/18 10:05 CK-MB (CK-2) Rel Index 3.5 (0-4) 10/28/18 10:05 0.122 ng/mL (0.00-0.029) H* D 10/28/18 10:05 4.30 mg/dL (0.00-1.30) H 10/27/18 14:34 NT-Pro-B Natriuret Pep 8302 pg/mL (0-450) H 10/26/18 18:21 6.1 g/dL (6.3-8.2) L 10/28/18 03:59 3.2 g/dL (3.9-5) L 10/28/18 03:59 1.1 % 10/28/18 03:59 Triglycerides 80 mg/dL (2-149) 10/28/18 00:09 Cholesterol 151 mg/dL (50-199) 10/28/18 00:09 80 mg/dL (50-130) 10/28/18 00:09 59 mg/dL (40-59) 10/28/18 00:09 2.55 % 10/28/18 00:09 Yellow (Yellow) 10/28/18 08:43 Slightly-cloudy (Clear) 10/28/18 08:43 5.0 (5.0-7.0) 10/28/18 08:43 Ur Specific [place] 1.014 (1.003-1.030) 10/28/18 08:43 <15 mg/dl mg/dL (Negative) 10/28/18 08:43 Neg mg/dL (Negative) 10/28/18 08:43 Neg mg/dL (Negative) 10/28/18 08:43 Neg (Negative) 10/28/18 08:43 Neg (Negative) 10/28/18 08:43 Neg (Negative) 10/28/18 08:43 < 2.0 mg/dL (<2.0) 10/28/18 08:43 Ur Leukocyte Esterase Neg (Negative) 10/28/18 08:43 2.0 /HPF (0.0-6.0) 10/28/18 08:43 2.0 /HPF (0.0-6.0) 10/28/18 08:43 1+ /HPF (Negative) 10/28/18 08:43 Few /HPF 10/28/18 08:43 241.0 mg/dL (0.1-20.0) H 10/28/18 13:37 21 mmol/L 10/28/18 13:37 20.1 mmolL (110-250) L 10/28/18 13:37 Presumptive negative 11/01/18 12:54 Presumptive negative 11/01/18 12:54 Ur Barbiturates Screen Presumptive negative 11/01/18 12:54 Ur Phencyclidine Scrn Presumptive negative 11/01/18 12:54 Ur Amphetamines Screen Presumptive negative 11/01/18 12:54 U Benzodiazepines Scrn Presumptive negative 11/01/18 12:54 Presumptive negative 11/01/18 12:54 U Marijuana (THC) Screen Presumptive negative 11/01/18 12:54 Disclamer 11/01/18 12:54 Active Medications - Current Medications Current Medications: Generic Name Dose Route Start Last Admin Trade Name Freq PRN Reason Stop Dose Admin Albuterol 2.5 mg 11/02/18 02:04 Proventil IH Q4HRT PRN Shortness Of Breath Albuterol/Ipratropium 1 ampul 11/02/18 08:00 11/02/18 14:08 Duoneb *Not For Prn Use* IH 1 ampul TIDRT FAYE Administration Aspirin 325 mg 10/27/18 10:00 11/02/18 09:00 Aspirin PO 325 mg QDAY FAYE Administration Budesonide 0.5 mg 10/27/18 08:00 11/02/18 07:21 Pulmicort IH 0.5 mg Q12HRT FAYE Administration Carvedilol 25 mg 11/02/18 22:00 Coreg PO Q12HR FAYE Diphenhydramine HCl 25 mg 10/28/18 22:49 10/28/18 23:05 Benadryl IV 25 mg Q6H PRN Administration Itching Famotidine 20 mg 10/29/18 10:00 11/02/18 09:00 Pepcid PO 20 mg DAILY FAYE Administration Furosemide 40 mg 10/27/18 14:00 11/02/18 05:19 Lasix IV 40 mg Q8H FAYE Administration Heparin Sodium (Porcine) 5,000 unit 10/27/18 22:00 11/02/18 09:00 Heparin SUB-Q 5,000 unit BID FAYE Administration Hydralazine HCl 10 mg 10/27/18 02:33 11/02/18 05:21 Apresoline IV 10 mg Q4H PRN Administration sb/p >150 Hydralazine HCl 100 mg 11/02/18 14:00 11/02/18 13:35 Apresoline PO 100 mg Q8HR FAYE Administration Hydrophilic Ointment 1 applic 10/27/18 13:07 Vaseline Lip Therapy TP Q2HR PRN Dry Lips Sodium Chloride 500 mls @ 10 mls/hr 10/29/18 09:55 10/29/18 10:08 Nacl 0.9% 500 Ml IV 10 mls/hr PRN PRN Administration FOR IV ANTIBIOTICS Milrinone Lactate/Dextrose 20 mg in 100 mls @ 16.841 mls/hr 10/30/18 16:00 11/02/18 13:36 Milrinone-D5w 20 Mg/100 Ml IV 11/02/18 15:59 0.375 mcg/kg/min TITR FAYE 16.841 mls/hr Administration 0.375 MCG/KG/MIN Isosorbide Dinitrate 10 mg 10/27/18 08:00 11/02/18 13:36 Isordil Titradose PO 10 mg TID FAYE Administration Multi-Ingred Cream/Lotion/Oil/Oint 1 applic 10/27/18 13:07 Artificial Tears Ophth Oint OU Q4HR PRN Dry Eye(s) Pravastatin Sodium 40 mg 10/27/18 22:00 11/01/18 21:29 Pravachol PO 40 mg QHS FAYE Administration Nutrition/Malnutrition Assess - Dietary Evaluation Nutrition/Malnutrition Findings: Nutrition Notes Start: 10/28/18 08:24 Freq: Status: Active Protocol: Document 10/30/18 08:24 CP (Rec: 10/30/18 08:26 CP [id number]) Co-Sign 10/30/18 08:24 LP Nutrition Notes Initial or Follow up Brief Note Current Diagnosis Hypertension,Heart Failure Other Pertinent Diagnosis Asthma, dyspnea Current Diet Cardiac Subjective/Other Information F/U for TF to start/TF tolerance. Pt diet advanced to cardiac. Pt was extubated and diet was advanced this morning. Nutrition Intervention Follow-Up By: 11/03/18 Additional Comments F/U: PO intakes
--- NOTE | 2018-11-02 15:56 | Progress Note ---
Assessment and Plan Acute hypoxemic respiratory failure. Presumptive diagnosis of acute pulmonary edema. HFrEF (20-25%) Poorly controlled hypertension. Morbid obesity. Acute on chronic kidney injury. - repeat CXR clear with resolution of pulmonary edema - PT/OT to increase ambulation - s/p Levaquin monotherapy - change to prn bronchodilators with pulmonary hygiene per RT - continue GI & VTE prophylaxis - prn supplemental oxygen to keep O2 sats > 90% - Monitor renal indices closely - Avoid nephrotoxic agents, adjust all medications for CrCL - Accuchecks with glycemic control. Target glucose of 140-180 mg/dL - Influenza and pneumonia vaccination per protocol ... discharge planning ongoing concurrently CODE STATUS: FULL CODE Subjective Date of service: 11/02/18 Principal diagnosis: Ac hypoxemic Resp failure; Acute pulmonary edema; Poorly controlled HTN Interval history: Patient is seen today for: Acute hypoxemic respiratory failure; Presumptive diagnosis of acute pulmonary edema; Poorly controlled hypertension. Seen and examined at bedside; 24hour events reviewed; nursing and respiratory care staff consulted; no adverse overnight events reported to me; resting peacefully in bed; continues to do better; tolerating PT/OT; No N//F/C Objective Vital Signs - 12hr 11/02/18 11/02/18 11/02/18 04:20 06:00 07:21 Temperature 97.2 F L Pulse Rate 116 H 114 H Pulse Rate [ 112 H Anterior Bilateral Throughout] Respiratory 16 Rate Respiratory 20 Rate [Anterior Bilateral Throughout] Blood Pressure 168/102 O2 Sat by Pulse 94 97 Oximetry 11/02/18 11/02/18 11/02/18 07:31 08:07 08:59 Temperature 97.6 F Pulse Rate 111 H Pulse Rate [ 108 H Anterior Bilateral Throughout] Respiratory 18 Rate Respiratory 20 Rate [Anterior Bilateral Throughout] Blood Pressure 163/103 O2 Sat by Pulse Oximetry 11/02/18 11/02/18 11:27 14:00 Temperature 97.9 F Pulse Rate 125 H Pulse Rate [ Anterior Bilateral Throughout] Respiratory 18 Rate Respiratory Rate [Anterior Bilateral Throughout] Blood Pressure 176/117 O2 Sat by Pulse Oximetry Constitutional: no acute distress, alert, other (middle aged obese AAM, normocep halic and atraumatic) Eyes: non-icteric ENT: oropharynx moist Neck: supple, no lymphadenopathy, no JVD, other (large neck circumference) Effort: normal Ascultation: Bilateral: clear, rales (improved) Percussion: Bilateral: not dull Cardiovascular: regular rate and rhythm, other (S1,S2) Gastrointestinal: normoactive bowel sounds, soft, non-tender, non-distended Integumentary: normal Extremities: no cyanosis, pulses normal, no ischemia or petechiae, edema (1+) Neurologic: normal mental status, non-focal exam, pupils equal and round, CN II- XII normal, motor strength normal and Psychiatric: mood appropriate, affect normal CBC and BMP: 11/01/18 04:41 11/03/18 11:53 ABG, PT/INR, D-dimer: ABG POC ABG pH 7.342 (7.35-7.45) L 10/29/18 12:32 POC ABG pCO2 53.3 (35-45) H 10/29/18 12:32 POC ABG pO2 109 (80-105) H 10/29/18 12:32 POC ABG HCO3 28.8 (22-26 mml/L) 10/29/18 12:32 POC ABG Total CO2 30 (23-27mmol/L) 10/29/18 12:32 POC ABG O2 Sat 98 10/29/18 12:32 PT/INR, D-dimer 679.01 ng/mlDDU (0-234) H 10/27/18 14:34 Abnormal lab findings: Abnormal Labs 10/26/18 10/26/18 10/26/18 18:21 18:21 22:56 WBC RBC Hgb 11.7 L Hct RDW 17.0 H D-Dimer POC ABG pH POC ABG pCO2 POC ABG pO2 Potassium Carbon Dioxide BUN 21 H Creatinine 2.4 H Glucose 106 H POC Glucose Total Creatine Kinase 287 H CK-MB (CK-2) Troponin T C-Reactive Protein NT-Pro-B Natriuret Pep 8302 H Total Protein 5.6 L Albumin 2.9 L Urine Creatinine Urine Chloride 10/27/18 10/27/18 10/27/18 02:58 03:00 03:00 WBC 12.6 H RBC Hgb Hct RDW 16.5 H D-Dimer POC ABG pH 7.301 L POC ABG pCO2 45.9 H POC ABG pO2 Potassium Carbon Dioxide 20 L BUN 21 H Creatinine 2.6 H Glucose 215 H POC Glucose Total Creatine Kinase CK-MB (CK-2) Troponin T C-Reactive Protein NT-Pro-B Natriuret Pep Total Protein Albumin Urine Creatinine Urine Chloride 10/27/18 10/27/18 10/27/18 12:04 14:34 14:34 WBC RBC Hgb Hct RDW D-Dimer 679.01 H POC ABG pH POC ABG pCO2 POC ABG pO2 Potassium Carbon Dioxide BUN Creatinine Glucose POC Glucose 124 H Total Creatine Kinase CK-MB (CK-2) Troponin T C-Reactive Protein 4.30 H NT-Pro-B Natriuret Pep Total Protein Albumin Urine Creatinine Urine Chloride 10/27/18 10/27/18 10/27/18 15:30 17:52 18:30 WBC RBC Hgb Hct RDW D-Dimer POC ABG pH 7.336 L POC ABG pCO2 50.7 H POC ABG pO2 Potassium Carbon Dioxide BUN Creatinine Glucose POC Glucose 123 H 125 H Total Creatine Kinase CK-MB (CK-2) Troponin T C-Reactive Protein NT-Pro-B Natriuret Pep Total Protein Albumin Urine Creatinine Urine Chloride 10/27/18 10/28/18 10/28/18 23:52 00:09 03:38 WBC RBC Hgb Hct RDW D-Dimer POC ABG pH POC ABG pCO2 51.3 H POC ABG pO2 Potassium Carbon Dioxide BUN Creatinine Glucose POC Glucose 113 H Total Creatine Kinase 229 H CK-MB (CK-2) 6.7 H Troponin T 0.065 H C-Reactive Protein NT-Pro-B Natriuret Pep Total Protein Albumin Urine Creatinine Urine Chloride 10/28/18 10/28/18 10/28/18 03:59 03:59 06:39 WBC RBC Hgb Hct RDW 16.8 H D-Dimer POC ABG pH POC ABG pCO2 POC ABG pO2 Potassium Carbon Dioxide BUN 31 H Creatinine 3.0 H Glucose 127 H POC Glucose 109 H Total Creatine Kinase CK-MB (CK-2) Troponin T C-Reactive Protein NT-Pro-B Natriuret Pep Total Protein 6.1 L Albumin 3.2 L Urine Creatinine Urine Chloride 10/28/18 10/28/18 10/28/18 10:05 11:11 13:37 WBC RBC Hgb Hct RDW D-Dimer POC ABG pH POC ABG pCO2 POC ABG pO2 Potassium Carbon Dioxide BUN Creatinine Glucose POC Glucose 111 H Total Creatine Kinase 215 H CK-MB (CK-2) 7.7 H Troponin T 0.122 H* D C-Reactive Protein NT-Pro-B Natriuret Pep Total Protein Albumin Urine Creatinine 241.0 H Urine Chloride 20.1 L 10/28/18 10/29/18 10/29/18 17:13 03:37 03:59 WBC 12.4 H RBC 3.63 L Hgb 11.0 L Hct 34.1 L RDW 17.0 H D-Dimer POC ABG pH 7.319 L 7.276 L POC ABG pCO2 55.8 H 63.5 H POC ABG pO2 113 H 119 H Potassium Carbon Dioxide BUN Creatinine Glucose POC Glucose Total Creatine Kinase CK-MB (CK-2) Troponin T C-Reactive Protein NT-Pro-B Natriuret Pep Total Protein Albumin Urine Creatinine Urine Chloride 10/29/18 10/30/18 10/30/18 12:32 04:05 04:05 WBC RBC 3.45 L Hgb 10.7 L Hct 32.1 L RDW 16.1 H D-Dimer POC ABG pH 7.342 L POC ABG pCO2 53.3 H POC ABG pO2 109 H Potassium 3.3 L D Carbon Dioxide BUN 34 H Creatinine 2.7 H Glucose POC Glucose Total Creatine Kinase CK-MB (CK-2) Troponin T C-Reactive Protein NT-Pro-B Natriuret Pep Total Protein Albumin Urine Creatinine Urine Chloride 10/30/18 10/31/18 10/31/18 11:15 04:53 04:53 WBC RBC 3.51 L Hgb 10.8 L Hct 32.1 L RDW 16.1 H D-Dimer POC ABG pH POC ABG pCO2 POC ABG pO2 Potassium 3.4 L Carbon Dioxide 32 H BUN 23 H Creatinine 2.2 H Glucose POC Glucose 128 H Total Creatine Kinase CK-MB (CK-2) Troponin T C-Reactive Protein NT-Pro-B Natriuret Pep Total Protein Albumin Urine Creatinine Urine Chloride 11/01/18 11/01/18 11/01/18 04:41 04:41 17:39 WBC RBC Hgb 11.1 L Hct 33.4 L RDW 16.0 H D-Dimer POC ABG pH POC ABG pCO2 POC ABG pO2 Potassium 3.5 L Carbon Dioxide BUN Creatinine 2.0 H Glucose POC Glucose 112 H Total Creatine Kinase CK-MB (CK-2) Troponin T C-Reactive Protein NT-Pro-B Natriuret Pep Total Protein Albumin Urine Creatinine Urine Chloride Allied health notes reviewed: nursing
--- NOTE | 2018-11-02 17:02 | XRay Report ---
PROCEDURE: XR CHEST 1V AP TECHNIQUE: AP chest HISTORY: ? Right lower lobe nodule laterally in base COMPARISONS: Chest x-ray October 2018 FINDINGS: Trachea midline. Heart size normal. Extubated. NG tube removed No pneumothorax. No effusion. No acute airspace disease No right base nodule noted. If further evaluation warranted, PA and lateral chest recommended No acute bony abnormality IMPRESSION: No acute pulmonary disease. This document is electronically signed by Eusebio Vásquez MD., Nov 02 2018 05:00:39 PM ET
[2018-11-02] MEDS: PRAVACHOL PO SCH (21:29)
[2018-11-02] MEDS ORDERED: COREG PO SCH (22:00)
[2018-11-03] MEDS: APRESOLINE IV PRN (04:38)
[2018-11-03] MEDS: APRESOLINE PO SCH ×2 (05:24→13:58)
[2018-11-03] MEDS: LASIX IV SCH ×2 (05:24→13:58)
--- NOTE | 2018-11-03 09:21 | Progress Note ---
Assessment and Plan - Patient Problems (1) Cardiorenal syndrome with renal failure Current Visit: Yes Status: Acute Plan to address problem: Acute kidney injury acute cardiorenal syndrome. Kidney function was improving. Follow up renal function and electrolytes on diuretics and milrinone (2) Acute on chronic systolic heart failure Current Visit: Yes Status: Acute Plan to address problem: Continue diuresis. Milrinone per Statistical Modeler. Patient diuresing briskly on milrinone and Lasix. 3.2 L negative fluid balance last 24 hours. Follow up intake and output and monitor electrolytes and function (3) Acute and chronic respiratory failure with hypoxia Current Visit: Yes Status: Acute Plan to address problem: Improved. Continue management by consumer affairs specialist (4) Hypertensive chronic kidney disease with stage 1 through stage 4 chronic kidney disease, or unspecified chronic kidney disease Current Visit: Yes Status: Acute Plan to address problem: Blood pressure is improving. Follow blood pressure and current medications (5) Noncompliance with medication regimen Current Visit: No Status: Acute Plan to address problem: Manager Income Tax patient more about the importance of adherence to treatment plan before discharge (6) Hypokalemia Current Visit: Yes Status: Acute Plan to address problem: Secondary to diuretics. No labs today. Follow-up potassium Subjective Date of service: 11/03/18 Principal diagnosis: Ac hypoxemic Resp failure; Acute pulmonary edema; Poorly controlled HTN Interval history: Patient seen lying in bed in stress lab. No new complaints. Shortness of sp ath improved. He denies pain or nausea. Objective - Exam Narrative Exam: Middle-age -[place] male lying in bed in no acute distress HEENT: NCAT, pink oral mucous membrane Neck: Supple, no venous distention CVS: S1S2 RRR with no murmur, rub or gallop Chest: Breath sounds are diminished in bases Abdomen: Protuberant, soft, nontender, no organomegaly, bowel sounds are present Extremities: 1-2+ edema extending to the thighs Genitourinary deferred hopkins draining clear urine Skin warm and dry Neuro: Awake, alert no focal deficits - Vital Signs Vital signs: Vital Signs - 12hr 11/02/18 11/02/18 11/03/18 22:00 23:40 01:02 Temperature 99.2 F Pulse Rate 105 H Pulse Rate [ 97 H Anterior Bilateral Throughout] Respiratory 18 Rate Respiratory 18 Rate [Anterior Bilateral Throughout] Blood Pressure 151/101 O2 Sat by Pulse 97 92 Oximetry 11/03/18 11/03/18 11/03/18 01:12 04:22 06:00 Temperature 97.8 F Pulse Rate 96 H 98 H Pulse Rate [ 99 H Anterior Bilateral Throughout] Respiratory 17 Rate Respiratory 18 Rate [Anterior Bilateral Throughout] Blood Pressure 170/117 O2 Sat by Pulse 92 Oximetry - Lab 11/01/18 04:41 11/01/18 04:41 Most recent lab results Calcium 8.7 mg/dL (8.4-10.2) 11/01/18 04:41 Magnesium 1.90 mg/dL (1.7-2.3) 10/30/18 04:05 241.0 mg/dL (0.1-20.0) H 10/28/18 13:37 21 mmol/L 10/28/18 13:37 Medications & Allergies - Medications Allergies/Adverse Reactions: Allergies lisinopril Allergy (Verified 10/09/18 09:19) Hives Home Medications: Home Medications Medication Instructions Recorded Confirmed Last Taken Type Albuterol Sulfate [Albuterol 1 - 2 puff IH Q6H PRN 10/09/18 10/27/18 Unknown History Sulfate Hfa] Ciprofloxacin HCl [Ciprofloxacin 500 mg PO Q12HR #14 tab 10/09/18 10/27/18 Unknown Rx TAB] Furosemide [Lasix] 20 mg PO QDAY 10/09/18 10/27/18 Unknown History Furosemide [Lasix] 20 mg PO QDAY #30 tablet 10/09/18 10/27/18 10/26/18 Rx Hydralazine HCl 50 mg PO Q12H 10/09/18 10/27/18 10/26/18 History Isosorbide Dinitrate [Isordil 10 mg PO TID 10/09/18 10/27/18 Unknown History Titradose] Metoprolol [Lopressor TAB] 25 mg PO BID #60 tablet 10/09/18 10/27/18 10/26/18 Rx Simvastatin 20 mg PO DAILY #30 tablet 10/09/18 10/27/18 10/26/18 Rx hydroCHLOROthiazide [Hctz] 12.5 mg PO QDAY #30 capsule 10/09/18 10/27/18 10/26/18 Rx Active Medications: Generic Name Dose Route Start Last Admin Trade Name Freq PRN Reason Stop Dose Admin Albuterol 2.5 mg 11/02/18 02:04 11/03/18 01:02 Proventil IH 2.5 mg Q4HRT PRN Administration Shortness Of Breath Aspirin 325 mg 10/27/18 10:00 11/02/18 09:00 Aspirin PO 325 mg QDAY FAYE Administration Carvedilol 25 mg 11/02/18 22:00 11/02/18 21:29 Coreg PO 25 mg Q12HR FAYE Administration Diphenhydramine HCl 25 mg 10/28/18 22:49 10/28/18 23:05 Benadryl IV 25 mg Q6H PRN Administration Itching Famotidine 20 mg 10/29/18 10:00 11/02/18 09:00 Pepcid PO 20 mg DAILY FAYE Administration Furosemide 40 mg 10/27/18 14:00 11/03/18 05:24 Lasix IV 40 mg Q8H FAYE Administration Heparin Sodium (Porcine) 5,000 unit 10/27/18 22:00 11/02/18 21:29 Heparin SUB-Q 5,000 unit BID FAYE Administration Hydralazine HCl 10 mg 10/27/18 02:33 11/03/18 04:38 Apresoline IV 10 mg Q4H PRN Administration sb/p >150 Hydralazine HCl 100 mg 11/02/18 14:00 11/03/18 05:24 Apresoline PO 100 mg Q8HR FAYE Administration Hydrophilic Ointment 1 applic 10/27/18 13:07 Vaseline Lip Therapy TP Q2HR PRN Dry Lips Sodium Chloride 500 mls @ 10 mls/hr 10/29/18 09:55 10/29/18 10:08 Nacl 0.9% 500 Ml IV 10 mls/hr PRN PRN Administration FOR IV ANTIBIOTICS Isosorbide Dinitrate 10 mg 10/27/18 08:00 11/02/18 21:29 Isordil Titradose PO 10 mg TID FAYE Administration Multi-Ingred Cream/Lotion/Oil/Oint 1 applic 10/27/18 13:07 Artificial Tears Ophth Oint OU Q4HR PRN Dry Eye(s) Pravastatin Sodium 40 mg 10/27/18 22:00 11/02/18 21:29 Pravachol PO 40 mg QHS FAYE Administration
[2018-11-03] MEDS ORDERED: LEXISCAN IV ONE ×2 (09:23→09:24)
[2018-11-03] MEDS: PEPCID PO SCH (11:14)
[2018-11-03] MEDS: COREG PO SCH (11:14)
[2018-11-03] MEDS: HEPARIN SUB-Q SCH (11:14)
[2018-11-03] MEDS: ASPIRIN PO SCH (11:15)
[2018-11-03] MEDS: ISORDIL TITRADOSE PO SCH ×2 (11:15→14:01)
--- NOTE | 2018-11-03 12:20 | Event Note ---
Date: 11/03/18 Patient is comfortable, no further cardiac complaints. Today, he underwent a Lexiscan thallium stress test, results are pending. Continue medical therapy for chronic systolic left ventricular dysfunction.
--- NOTE | 2018-11-03 12:42 | Progress Note ---
Assessment and Plan Assessment and plan: Patient is a 43 yo man with a history of hypertension, asthma, morbid obesity, cardiomyopathy and CKD who presented to [facility] ED on 10/26/18 with sob, leg swelling. He was admitted for CHF to Telemetry, he eventually got worse and was moved to ICU on BIPAP on 10/27/18 then he was intubated. He was subsequently extubated on 10/29/18. -Acute on chronic systolic heart failure, EF est 20-25%: continue to diuresis, Cardiology is following, stopped IV steroids, on Primacor IV drip -Acute hypoxic respiratory failure, failed Bipap, intubated on 10/27/18 and extubated 10/29/18 and tranferred out icu on 10/30/18: currently on nasal canula, Pulmonology is following. 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 I have told him the risk but he must go because of bills. He says that repo man going to take him car away in the hospital parking lot. He says that he has no friends or relatives that can help him. I told him not to drive. He has a stress test on Saturday. He is still on IV milir one drip. I called his NOK number in EMR but his Grandmother answered and gave me his mother number [phone] (Lauren Me). I spoke with her, she says will call him. Patient signed out AMA, left the floor but his mother called him and now he wants to come back and he is down in ED. He may have left the hospital briefly but he has not been taking out of our inpatient system yet. I told them to bring him back into his room and we will get UDS->negative stress test today, discharge once cleared by Cardiology History Interval history: Patient was seen and examined. Follow-up on current diagnosis of CHF and respiratory failure. No overnight events reported to me. Imaging, nursing note, chart, labs and old chart reviewed. Respiratory failure resolving, Hospitalist Physical - Physical exam Narrative exam: Gen: morbid obese bmi 41.3, ill appearing, extubated now HEENT: NCAT, EOMI, PERRL, OP clear Neck: supple, no adenopathy, no thyromegaly, equivocal JVD CVS/Heart: Regular tachy, normal S1S2, pulses present bilaterally Chest/Lungs: tachypneic, diminished bs bilateral, Symmetrical chest expansion, good air entry bilaterally GI/Abdomen: soft, NTND, good bowel sounds, no guarding or rebound /Bladder: no suprapubic tenderness, no CVA or paraspinal tenderness Extermity/Skin: ble edema MSK: from x 4 Neuro: No new focal deficits Psych: calm - Constitutional Vitals: Temp Pulse Resp BP Pulse Ox 97.5 F L 95 H 20 163/109 94 11/03/18 12:19 11/03/18 12:18 11/03/18 12:18 11/03/18 12:18 11/03/18 12:18 General appearance: Absent: mild distress Results - Labs CBC & Chem 7: 11/01/18 04:41 11/01/18 04:41 Labs: Laboratory Last Values WBC 9.0 K/mm3 (4.5-11.0) 11/01/18 04:41 RBC 3.66 M/mm3 (3.65-5.03) 11/01/18 04:41 Hgb 11.1 gm/dl (11.8-15.2) L 11/01/18 04:41 Hct 33.4 % (35.5-45.6) L 11/01/18 04:41 MCV 91 fl (84-94) 11/01/18 04:41 MCH 30 pg (28-32) 11/01/18 04:41 MCHC 33 % (32-34) 11/01/18 04:41 RDW 16.0 % (13.2-15.2) H 11/01/18 04:41 Plt Count 293 K/mm3 (140-440) 11/01/18 04:41 679.01 ng/mlDDU (0-234) H 10/27/18 14:34 POC ABG pH 7.342 (7.35-7.45) L 10/29/18 12:32 POC ABG pCO2 53.3 (35-45) H 10/29/18 12:32 POC ABG pO2 109 (80-105) H 10/29/18 12:32 POC ABG HCO3 28.8 (22-26 mml/L) 10/29/18 12:32 POC ABG Total CO2 30 (23-27mmol/L) 10/29/18 12:32 POC ABG O2 Sat 98 10/29/18 12:32 POC ABG Base Excess 3 ((-2) - (+3)mmol/L) 10/29/18 12:32 30 % 10/29/18 12:32 Sodium 142 mmol/L (137-145) 11/01/18 04:41 Potassium 3.5 mmol/L (3.6-5.0) L 11/01/18 04:41 Chloride 101.6 mmol/L (98-107) 11/01/18 04:41 Carbon Dioxide 29 mmol/L (22-30) 11/01/18 04:41 15 mmol/L 11/01/18 04:41 BUN 16 mg/dL (9-20) 11/01/18 04:41 2.0 mg/dL (0.8-1.5) H 11/01/18 04:41 Estimated GFR 44 ml/min 11/01/18 04:41 8 % 11/01/18 04:41 Glucose 91 mg/dL (75-100) 11/01/18 04:41 POC Glucose 106 (70-105) H 11/03/18 11:49 Lactic Acid 0.80 mmol/L (0.7-2.0) 10/26/18 22:56 Calcium 8.7 mg/dL (8.4-10.2) 11/01/18 04:41 Magnesium 1.90 mg/dL (1.7-2.3) 10/30/18 04:05 0.40 mg/dL (0.1-1.2) 10/28/18 03:59 AST 29 units/L (5-40) 10/28/18 03:59 ALT 25 units/L (7-56) 10/28/18 03:59 45 units/L (35-129) 10/28/18 03:59 215 units/L (55-170) H 10/28/18 10:05 CK-MB (CK-2) 7.7 ng/mL (0.0-4.0) H 10/28/18 10:05 CK-MB (CK-2) Rel Index 3.5 (0-4) 10/28/18 10:05 0.122 ng/mL (0.00-0.029) H* D 10/28/18 10:05 4.30 mg/dL (0.00-1.30) H 10/27/18 14:34 NT-Pro-B Natriuret Pep 8302 pg/mL (0-450) H 10/26/18 18:21 6.1 g/dL (6.3-8.2) L 10/28/18 03:59 3.2 g/dL (3.9-5) L 10/28/18 03:59 1.1 % 10/28/18 03:59 Triglycerides 80 mg/dL (2-149) 10/28/18 00:09 Cholesterol 151 mg/dL (50-199) 10/28/18 00:09 80 mg/dL (50-130) 10/28/18 00:09 59 mg/dL (40-59) 10/28/18 00:09 2.55 % 10/28/18 00:09 Yellow (Yellow) 10/28/18 08:43 Slightly-cloudy (Clear) 10/28/18 08:43 5.0 (5.0-7.0) 10/28/18 08:43 Ur Specific [place] 1.014 (1.003-1.030) 10/28/18 08:43 <15 mg/dl mg/dL (Negative) 10/28/18 08:43 Neg mg/dL (Negative) 10/28/18 08:43 Neg mg/dL (Negative) 10/28/18 08:43 Neg (Negative) 10/28/18 08:43 Neg (Negative) 10/28/18 08:43 Neg (Negative) 10/28/18 08:43 < 2.0 mg/dL (<2.0) 10/28/18 08:43 Ur Leukocyte Esterase Neg (Negative) 10/28/18 08:43 2.0 /HPF (0.0-6.0) 10/28/18 08:43 2.0 /HPF (0.0-6.0) 10/28/18 08:43 1+ /HPF (Negative) 10/28/18 08:43 Few /HPF 10/28/18 08:43 241.0 mg/dL (0.1-20.0) H 10/28/18 13:37 21 mmol/L 10/28/18 13:37 20.1 mmolL (110-250) L 10/28/18 13:37 Presumptive negative 11/01/18 12:54 Presumptive negative 11/01/18 12:54 Ur Barbiturates Screen Presumptive negative 11/01/18 12:54 Ur Phencyclidine Scrn Presumptive negative 11/01/18 12:54 Ur Amphetamines Screen Presumptive negative 11/01/18 12:54 U Benzodiazepines Scrn Presumptive negative 11/01/18 12:54 Presumptive negative 11/01/18 12:54 U Marijuana (THC) Screen Presumptive negative 11/01/18 12:54 Disclamer 11/01/18 12:54 Active Medications - Current Medications Current Medications: Generic Name Dose Route Start Last Admin Trade Name Freq PRN Reason Stop Dose Admin Albuterol 2.5 mg 11/02/18 02:04 11/03/18 01:02 Proventil IH 2.5 mg Q4HRT PRN Administration Shortness Of Breath Aspirin 325 mg 10/27/18 10:00 11/03/18 11:15 Aspirin PO 325 mg QDAY FAYE Administration Carvedilol 25 mg 11/02/18 22:00 11/03/18 11:14 Coreg PO 25 mg Q12HR FAYE Administration Diphenhydramine HCl 25 mg 10/28/18 22:49 10/28/18 23:05 Benadryl IV 25 mg Q6H PRN Administration Itching Famotidine 20 mg 10/29/18 10:00 11/03/18 11:14 Pepcid PO 20 mg DAILY FAYE Administration Furosemide 40 mg 10/27/18 14:00 11/03/18 05:24 Lasix IV 40 mg Q8H FAYE Administration Heparin Sodium (Porcine) 5,000 unit 10/27/18 22:00 11/03/18 11:14 Heparin SUB-Q 5,000 unit BID FAYE Administration Hydralazine HCl 10 mg 10/27/18 02:33 11/03/18 04:38 Apresoline IV 10 mg Q4H PRN Administration sb/p >150 Hydralazine HCl 100 mg 11/02/18 14:00 11/03/18 05:24 Apresoline PO 100 mg Q8HR FAYE Administration Hydrophilic Ointment 1 applic 10/27/18 13:07 Vaseline Lip Therapy TP Q2HR PRN Dry Lips Sodium Chloride 500 mls @ 10 mls/hr 10/29/18 09:55 10/29/18 10:08 Nacl 0.9% 500 Ml IV 10 mls/hr PRN PRN Administration FOR IV ANTIBIOTICS Isosorbide Dinitrate 10 mg 10/27/18 08:00 11/03/18 11:15 Isordil Titradose PO 10 mg TID FAYE Administration Multi-Ingred Cream/Lotion/Oil/Oint 1 applic 10/27/18 13:07 Artificial Tears Ophth Oint OU Q4HR PRN Dry Eye(s) Pravastatin Sodium 40 mg 10/27/18 22:00 11/02/18 21:29 Pravachol PO 40 mg QHS FAYE Administration Nutrition/Malnutrition Assess - Dietary Evaluation Nutrition/Malnutrition Findings: Nutrition Notes Start: 10/28/18 08:24 Freq: Status: Active Protocol: Document 10/30/18 08:24 CP (Rec: 10/30/18 08:26 CP [id number]) Co-Sign 10/30/18 08:24 LP Nutrition Notes Initial or Follow up Brief Note Current Diagnosis Hypertension,Heart Failure Other Pertinent Diagnosis Asthma, dyspnea Current Diet Cardiac Subjective/Other Information F/U for TF to start/TF tolerance. Pt diet advanced to cardiac. Pt was extubated and diet was advanced this morning. Nutrition Intervention Follow-Up By: 11/03/18 Additional Comments F/U: PO intakes
[2018-11-03 12:46] LABS: Calcium 8.9 mg/dL (8.4-10.2)
--- NOTE | 2018-11-03 12:50 | Discharge Summary ---
Providers - Providers Date of Admission: 10/26/18 23:26 Date of discharge: 11/03/18 Attending physician: JERICHO SILVEIRA 10/27/18 01:03 Consult to Physician [CONS] Routine Comment: Consulting Provider: SAMANTA DIAS Physician Instructions: Reason For Exam: CHF 10/27/18 03:13 Consult to Physician [CONS] Routine Comment: Consulting Provider: WINNIE GUAJARDO Physician Instructions: Reason For Exam: respiratory failure 10/27/18 10:35 Consult to Physician [CONS] Routine Comment: Consulting Provider: SHIKHA ROBLES Physician Instructions: Reason For Exam: raghav 10/27/18 13:08 Consult to Dietitian/Nutrition [CONS] Routine Physician Instructions: Reason For Exam: Reason for Consult: Evaluate nutritional intake 10/27/18 13:10 Consult to Dietitian/Nutrition [CONS] Routine Physician Instructions: Reason For Exam: Reason for Consult: Write/Manage Tube Feeding Primary care physician: DIANDRA CARRILLO Hospitalization Condition: Stable Hospital course: Patient is a 43 yo man with a history of hypertension, asthma, morbid obesity, cardiomyopathy and CKD who presented to [facility] ED on 10/26/18 with sob, leg swelling. He was admitted for CHF to Telemetry, he eventually got worse and was moved to ICU on BIPAP on 10/27/18 then he was intubated. He was subsequently extubated on 10/29/18. -Acute on chronic systolic heart failure, EF est 20-25%: continue to diuresis, Cardiology is following, stopped IV steroids, on Primacor IV drip -Acute hypoxic respiratory failure, failed Bipap, intubated on 10/27/18 and extubated 10/29/18 and tranferred out icu on 10/30/18: currently on nasal canula, Pulmonology is following. 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 I have told him the risk but he must go because of bills. He says that repo man going to take him car away in the hospital parking lot. He says that he has no friends or relatives that can help him. I told him not to drive. He has a stress test on Saturday. He is still on IV milirone drip. I called his NOK number in EMR but his Grandmother answered and gave me his mother number [phone] (Lauren Ca). I spoke with her, she says will call him. Patient signed out AMA, left the floor but his mother called him and now he wants to come back and he is down in ED. He may have left the hospital briefly but he has not been taking out of our inpatient system yet. I told them to bring him back into his room and we will get UDS->negative stress test today, discharge once cleared by Cardiology Disposition: DC-01 TO HOME OR SELFCARE Time spent for discharge: 33 minutes Core Measure Documentation - Palliative Care Palliative Care/ Comfort Measures: Not Applicable - Core Measures Any of the following diagnoses?: heart failure - VTE Discharge Requirements Deep Vein Thrombosis/Pulmonary Embolism Present on Admission: No Has pt received <5 days of overlap therapy or INR<2.0: No Anticoagulant overlap therapy prescribed at discharge: No Contraindication No Overlap Therapy order at DC: Not Indicated - Heart Failure Discharge Requirements ABDIAZIZ/ARB for LVSD if EF <40%: No Reason for no ABDIAZIZ/ARB: Renal impairment Beta yolis at discharge: Yes Exam - Physical Exam Narrative exam: Gen: morbid obese bmi 41.3, ill appearing, extubated now HEENT: NCAT, EOMI, PERRL, OP clear Neck: supple, no adenopathy, no thyromegaly, equivocal JVD CVS/Heart: Regular tachy, normal S1S2, pulses present bilaterally Chest/Lungs: tachypneic, diminished bs bilateral, Symmetrical chest expansion, good air entry bilaterally GI/Abdomen: soft, NTND, good bowel sounds, no guarding or rebound /Bladder: no suprapubic tenderness, no CVA or paraspinal tenderness Extermity/Skin: ble edema MSK: from x 4 Neuro: No new focal deficits Psych: calm - Constitutional Vitals: Temp Pulse Resp BP Pulse Ox 97.5 F L 95 H 20 163/109 94 11/03/18 12:19 11/03/18 12:18 11/03/18 12:18 11/03/18 12:18 11/03/18 12:18 Plan Activity: other (no strenous activity unless cleared by Waterworks Pump Station Operator) Diet: low salt Follow up with: DIANDRA CARRILLO MD [Primary Care Provider] - 3-5 Days SAMANTA DIAS MD [Staff Physician] - 7 Days SHIKHA ROBLES MD [Staff Physician] - 7 Days WINNIE GUAJARDO MD [Staff Physician] - 7 Days Prescriptions: Pravastatin [Pravachol] 40 mg PO QHS #30 tablet hydrALAZINE [Apresoline TAB] 100 mg PO TID #30 tablet Aspirin [Aspirin TAB] 325 mg PO QDAY #30 tablet Carvedilol [Coreg] 25 mg PO Q12HR #60 tablet Isosorbide Dinitrate [Isordil Titradose] 10 mg PO TID #90 tablet Potassium Chloride [K-Dur] 20 meq PO BID #60 tab Furosemide [Lasix TAB] 40 mg PO QDAY #30 tablet Furosemide [Lasix TAB] 40 mg PO Q8H #90 tablet
[2018-11-03 14:02] VITALS: BP 157/107
--- NOTE | 2018-11-04 11:54 | Treadmill Report ---
THALLIUM STRESS TEST REPORT LEFT VENTRICLE: Left ventricle is severely dilated. Perfusion study demonstrates a small fixed basal inferior defect of mild to moderate intensity. No significant reversible or fixed defects identified. Gated analysis demonstrates severe left ventricular systolic dysfunction with ejection fraction calculated at 31%. CONCLUSION: Evidence of a dilated cardiomyopathy, with moderately severe left ventricular systolic dysfunction, ejection fraction 31%. Perfusion study demonstrates a small fixed basal inferior defect consistent with diaphragmatic attenuation artifact. No ischemia is demonstrated. Clinical correlation is recommended. [facility]# [id number] [place]/NTS
== END 2018-11-03 17:59 | disposition home or self-care (01) | DRG 871 ==
LOC: ED 17:35 → 4A 23:26 → CC1 10-27 03:27 → 4A 10-30 18:31
PROVIDERS: ADMIT Internal Medicine; ATTEND Internal Medicine
PROC: 5A1945Z Respiratory Ventilation, 24-96 Consecutive Hours (ICD-10-PCS; principal; 2018-10-27)
PROC: 0BH17EZ Insertion of Endotracheal Airway into Trachea, Via Natural or Artificial Opening (ICD-10-PCS; 2018-10-27)
PROC: 5A09357 Assistance with Respiratory Ventilation, Less than 24 Consecutive Hours, Continuous Positive Airway Pressure (ICD-10-PCS; 2018-10-27)
PROC: 4A033R1 Measurement of Arterial Saturation, Peripheral, Percutaneous Approach (ICD-10-PCS; 2018-10-27)
PROC: 5A09357 Assistance with Respiratory Ventilation, Less than 24 Consecutive Hours, Continuous Positive Airway Pressure (ICD-10-PCS; 2018-10-29)
DX: A41.9 Sepsis, unspecified organism (principal); I50.23 Acute on chronic systolic (congestive) heart failure; N17.0 Acute kidney failure with tubular necrosis; J96.21 Acute and chronic respiratory failure with hypoxia; J18.9 Pneumonia, unspecified organism; I42.9 Cardiomyopathy, unspecified; I13.0 Hypertensive heart and chronic kidney disease with heart failure and stage 1 through stage 4 chronic kidney disease, or unspecified chronic kidney disease; J45.901 Unspecified asthma with (acute) exacerbation; E66.01 Morbid (severe) obesity due to excess calories; N18.9 Chronic kidney disease, unspecified; N18.3 Chronic kidney disease, stage 3 (moderate); E87.6 Hypokalemia; Z82.49 Family history of ischemic heart disease and other diseases of the circulatory system; Z79.899 Other long term (current) drug therapy; Z91.14 Patient's other noncompliance with medication regimen
CPT/HCPCS: 36415; 36600; 71045; 71046; 76770; 78452; 80048; 80053; 80061; 80307; 81001; 82140; 82436; 82550; 82553; 82570; 82803; 82962; 83735; 83880; 84300; 84484; 85027; 85379; 86140; 87040; 87070; 87205; 93005; 93010; 93017; 93306; 93970; 94002; 94003; 94640; 94660; 94760; G0378; A9270-GY; A9502; J0360; J1200; J1644; J1650; J1940; J1956; J2060; J2250; J2260; J2704; J2785; J2920; J2930; J3010; J7030; J7040

== ENCOUNTER 2018-11-17 04:28 | Emergency (ER) | payer OTHER ==
[2018-11-17] MEDS ORDERED: ADRENALIN ONE (04:30)
[2018-11-17] MEDS ORDERED: CALCIUM CHLORIDE IV ONE (04:30)
[2018-11-17] MEDS ORDERED: NACL 0.9% 1000 ML 1,000 ML ONE (05:28)
[2018-11-17] MEDS ORDERED: ADRENALIN 8 MG in NACL 0.9% 250ML 242 ML IV ONE (05:30)
--- NOTE | 2018-11-17 05:44 | Emergency Department Report ---
ED CPR HPI - General Chief Complaint: Cardiac Arrest/CPR Stated Complaint: CARDIAC ARREST Time Seen by Provider: 11/17/18 05:38 Source: EMS Mode of arrival: Stretcher Limitations: Other - History of Present Illness Initial Comments: Patient is 43 years old male with history of congestive heart failure and hypertension. Patient brought to the emergency room via EMS in a full cardiac arrest with CPR in progress. According to EMS report patient is in a snf and found by the resident gasping for breath in that he passed out. EMS stated that initial rhythm was PEA. Patient intubated by EMS on the scene and ACLS continued. Upon arrival to the ER ET Tube confirmed by good breath sounds on both side of the chest. ACLS protocol continued. Right EJ placed by me for IV access. Left femoral central line placed by me for resuscitation. Patient was in and out of pulse with the main Rhythm is PEA. Total resuscitation time in the emergency room is one hour and 14 minutes. For further information please refer to code sheet. No family available at this moment. MD Complaint: stopped breathing Place: NH/SNF - Related Data Home Medications Medication Instructions Recorded Confirmed Last Taken Albuterol Sulfate [Albuterol 1 - 2 puff IH Q6H PRN 10/09/18 10/27/18 Unknown Sulfate Hfa] Previous Rx's Medication Instructions Recorded Last Taken Type Aspirin 325 mg PO QDAY #30 tablet 11/03/18 Unknown Rx Carvedilol [Coreg] 25 mg PO Q12HR #60 tablet 11/03/18 Unknown Rx Furosemide [Lasix TAB] 40 mg PO Q8H #90 tablet 11/03/18 Unknown Rx Furosemide [Lasix TAB] 40 mg PO QDAY #30 tablet 11/03/18 Unknown Rx Isosorbide Dinitrate [Isordil 10 mg PO TID #90 tablet 11/03/18 Unknown Rx Titradose] Potassium Chloride [K-Dur] 20 meq PO BID #60 tab 11/03/18 Unknown Rx Pravastatin [Pravachol] 40 mg PO QHS #30 tablet 11/03/18 Unknown Rx hydrALAZINE [Apresoline TAB] 100 mg PO TID #30 tablet 11/03/18 Unknown Rx Allergies Allergy/AdvReac Type Severity Reaction Status Date / Time lisinopril Allergy Hives Verified 10/09/18 09:19 ED Review of Systems ROS: Stated complaint: CARDIAC ARREST Other details as noted in HPI Comment: Unobtainable due to pts medical conditions ED Past Medical Hx - Past Medical History Previous Medical History?: Yes Hx Hypertension: Yes Hx Congestive Heart Failure: Yes Hx Diabetes: No Hx Asthma: Yes Hx COPD: No - Surgical History Past Surgical History?: No - Social History Smoking Status: Unknown if ever smoked - Medications Home Medications: Home Medications Medication Instructions Recorded Confirmed Last Taken Type Albuterol Sulfate [Albuterol 1 - 2 puff IH Q6H PRN 10/09/18 10/27/18 Unknown History Sulfate Hfa] Aspirin 325 mg PO QDAY #30 tablet 11/03/18 Unknown Rx Carvedilol [Coreg] 25 mg PO Q12HR #60 tablet 11/03/18 Unknown Rx Furosemide [Lasix TAB] 40 mg PO Q8H #90 tablet 11/03/18 Unknown Rx Furosemide [Lasix TAB] 40 mg PO QDAY #30 tablet 11/03/18 Unknown Rx Isosorbide Dinitrate [Isordil 10 mg PO TID #90 tablet 11/03/18 Unknown Rx Titradose] Potassium Chloride [K-Dur] 20 meq PO BID #60 tab 11/03/18 Unknown Rx Pravastatin [Pravachol] 40 mg PO QHS #30 tablet 11/03/18 Unknown Rx hydrALAZINE [Apresoline TAB] 100 mg PO TID #30 tablet 11/03/18 Unknown Rx ED Physical Exam - General Limitations: Other General appearance: other (CPR in progress) - Head Head exam: Present: atraumatic, normocephalic - Eye Pupils: Present: other (pupils are 4 mm fixed and dilated) - Neck Neck exam: Present: normal inspection - Respiratory Respiratory exam: Present: other (no spontaneous breathing) - Cardiovascular Cardiovascular Exam: Present: other (no heart tones) - GI/Abdominal GI/Abdominal exam: Present: soft. Absent: distended - Extremities Exam Extremities exam: Present: pedal edema - Neurological Exam Neurological exam: Present: other (intubated, CPR in progress) - Skin Skin exam: Present: warm, intact - Central Line Placement Left Femoral Consent Obtained: emergent situation Time Out Performed: Yes MD Prep: mask, gown Local Anesthesia Used: Lidocaine 2% Central Line Lumen Inserted: triple Bloods Obtained for Lab: Yes Central Line Position: good blood return, all ports aspirated, flus, sutured in place with 2-0 Dressing Applied: Tegaderm, sterile gauze/tape Patient Tolerated Procedure: well, no complications Complications: none Critical Care Time: Yes Critical care time in (mins) excluding proc time.: 110 Critical care attestation.: If time is entered above; I have spent that time in minutes in the direct care of this critically ill patient, excluding procedure time. ED Disposition Clinical Impression: Cardiopulmonary arrest Disposition: DC-20 Is pt being admited?: No Condition: Stable
== END 2018-11-17 05:50 ==
LOC: ED 04:28
DX: I50.9 Heart failure, unspecified (principal); I11.0 Hypertensive heart disease with heart failure; J45.909 Unspecified asthma, uncomplicated; Z88.6 Allergy status to analgesic agent
CPT/HCPCS: 36556; 92950; 96374; 99291; J0171; J7030; J7050; 82962